=== PATIENT | female | born 1960 | race American Indian/Alaskan Native ===

== ENCOUNTER 2023-01-15 13:11 | Inpatient (IN) ==
--- NOTE | 2023-01-15 14:13 | XRay Report ---
XR chest 1V portable HISTORY: 62 years-old Female Sepsis acute sepsis with shortness of breath COMPARISON: None TECHNIQUE: AP view of the chest FINDINGS: Cardiac mediastinal and hilar silhouettes are within normal limits. No pneumothorax, pleural effusion , airspace consolidation or pulmonary edema. Degenerative changes of the shoulders and spine. IMPRESSION: No acute process. ACT 112: Negative or not required by law. The above report was generated using voice recognition software. It may contain grammatical, syntax o r spelling errors. Electronically signed by: Rory Sweeney M.D. 01/15/2023 2:12 PM
[2023-01-15 14:35] LABS: Basophils # (auto) 0.03 K/uL (0-0.2); Basophils % (auto) 0.2 %; Eosinophils # (auto) 0.12 K/uL (0-0.50); Eosinophils % (auto) 0.9 %; Hematocrit (blood only) 36.8 % (37.0-47.0); Hemoglobin 11.9 g/dl (12.0-16.0); Immature Granulocytes # (auto) 0.05 K/uL (0.01-0.20); Immature Granulocytes % (auto) 0.4 %; Lymphocytes # (auto) 1.29 K/uL (1.2-3.4); Mean Corpuscular Hemoglobin 30.2 pg (25.0-34.0); Mean Corpuscular Hgb Conc 32.3 g/dL (32.0-36.0); Mean Corpuscular Volume 93.4 fL (80.0-100.0); Mean Platelet Volume 13.2 fL (9.4-12.4); Monocytes # (auto) 0.84 K/uL (0.11-0.59); Monocytes % (auto) 6.5 %; Neutrophils # (auto) 10.55 K/uL (1.40-6.50); Platelet Count 165 K/uL (130-400); RDW Standard Deviation 47.8 fL (36.4-46.3); Red Blood Count 3.94 M/uL (4.20-5.40); White Blood Count 12.88 K/ul (4.8-10.8)
[2023-01-15 14:46] LABS: Albumin Level 4.1 gm/dl (3.4-5.0); BUN Creatinine Ratio 12.4 (10-20); Bilirubin,Total 0.8 mg/dl (0.2-1.0); Calcium 9.3 mg/dl (8.5-10.1); Creatinine Clr Calc Pharmacy 83.2 ml/min; Est GFR (African American) 81.6 ml/min; Est GFR (Non-African American) 70.4 ml/min; Potassium 4.5 mmol/L (3.5-5.1); Total Protein 8.1 gm/dl (6.0-8.3)
[2023-01-15 14:46] LABS: Appearance Urine Clear (Clear); Bacteria Urine Automated Negative (Negative); Bilirubin Urine Negative (Negative); Blood Urine Negative (Negative); Color Urine Yellow; Epithelial Cell Urine Auto >30 /lpf (0-5); Glucose Urine UA Negative (Negative); Ketones Urine Negative (Negative); Leukocyte Esterase Urine Negative (Negative); Nitrite Urine Negative (Negative); Protein Urine Trace (Negative); RBC Urine Automated 0-4 /hpf (0-4); Specific Gravity Urine 1.019 (1.000-1.030); Urobilinogen Urine Negative (Negative); pH Urine 6.5 (4.5-7.5)
[2023-01-15 14:58] LABS: Prothrombin Time 10.5 Seconds (9.0-12.0)
--- NOTE | 2023-01-15 16:09 | Emergency Department Note ---
Impression & Plan Abscess of axilla, left, Cellulitis of axilla, left ED Provider Note CHIEF COMPLAINT: Infection in the left axilla x3 weeks HISTORY OF PRESENT ILLNESS: Patient is a 62-year-old female with past medical history significant for GERD, neuropathy, history of CML( not currently under any treatment), who presents emergency department for evaluation of an abscess in her left axilla that started about 3 weeks ago. She reports a history of similar abscesses, usually in the armpit region. They are usually small, and go away on their own. This episode started about 3 weeks ago, it was a small, tender area, she thought it was an ingrown hair. It has progressively gotten larger, more painful and swollen. She is been doing hot showers and warm compresses and putting Neosporin on the area. She started running fevers around 3 or 4 days ago, she reports Tmax around 103 F. She has been taking ibuprofen for this. She currently rates her pain a 6/10. There has been no drainage from the area. She tried calling her primary care provider for an appointment but could not get in. She denies a history of MRSA. REVIEW OF SYSTEMS: Review of systems as per HPI. All other systems reviewed were negative. 10 systems reviewed. PMH: External medical records are reviewed and summarized as above/below. See Problem List. SOCIAL HISTORY: Patient lives at home with her family. She does not smoke. PHYSICAL EXAM: Vital Signs: Reviewed Nurse's notes. Temperature checked by myself at the time of the exam was 39.5 C orally. CONSTITUTIONAL: Patient is a pleasant, nontoxic-appearing 62-year-old female laying on the gurney in no acute distress. EYES: Pupils equal, round, reactive to light and accommodation. EOMs intact without nystagmus. Sclera are anicteric. ENT: Tympanic membranes intact, with normal landmarks. External canals are clear. Oral and nasopharynx are clear. Mucous membranes are moist, no lesions, tongue and gums appear normal. CARDIOVASCULAR: Regular rate and rhythm. Peripheral pulses easily palpable. RESPIRATORY: Breath sounds equal and clear to auscultation. INTEGUMENTARY: Examination of the left axillary area, there is a large, fist sized abscess with overlying cellulitis. There is an area of pointing noted superiorly higher into the axillary region. The area is hot to the touch and exquisitely tender to palpation. EMERGENCY DEPARTMENT COURSE: The patient was seen and assessed as above. External medical records are reviewed. She is noted to have a low-grade fever in triage. She presents to the emergency department for evaluation of an abscess in the left axillary region. Critical pathways implemented by nursing staff prior to my assessment of the patient included CBC with differential, CMP, magnesium, procalcitonin, urinalysis, lactate, coags, blood cultures and a chest x-ray. Laboratory studies per my review note a mildly elevated white count at 12,800. Mild anemia noted, H&H 11.9 and 36.8, platelet count is 165,000. Coags are normal. Electrolytes, renal functions and transaminases are not elevated. Lactic acid normal at 1.8, Pro-Jayson normal at 0.12. Urine microscopy is without signs of infection. Case reviewed with attending physician, Dr. Lira, and antibiotic selection discussed with the ED pharmacist. She was ordered ceftriaxone 2 g IV and daptomycin 4 mg/kg IV. She was ordered IV acetaminophen for her fever. A COVID swab was obtained for admission/surgical purposes. I did discuss the patient with the ED rehabilitation caseworker to confirm and the patient does not appear to be established with a local primary care provider. The patient has a large abscess in the left axillary area that I feels requires surgical I&D. After review of the information above and other included data, I feel the patient Requires admission/observation for further care and management. Consultation was placed with general surgery. I was able to review the patient with general surgery, Dr. Moreno. She suggested CT scan imaging to evaluate the size and extension of the abscess. Discussed with her that the site was pointing, and would be easy to obtain a culture from. She suggested medical admission and surgical consult, plan for OR likely tomorrow. I did perform a limited bedside deroofing of the pustule, and was able to get a large amount of purulent material to drain and obtained a culture from this. CT scan was then performed. The patient requested something for pain and was treated with IV morphine and Zofran. [facility] COVID test was negative. CT of the chest with IV contrast per my interpretation and radiologist report note cellulitis in the left axillary region measuring roughly 10 x 5 cm. Re active lymphadenopathy noted. Chest x-ray per my interpretation is clear without signs of pneumonia. EKG per my interpretation Notes a normal sinus rhythm at 90 bpm. No ectopy or acute ischemic changes. No old EKGs for comparison. PROCEDURE NOTE: Area of maximal pointing of the left axillary abscess was cleansed with alcohol swab x3, and deroofed with an 18-gauge needle. There was a brisk flow of bloody/purulent drainage that resulted, a culture was obtained and was sent for analysis. Absorbent dressing was applied. Differential diagnoses considered included cellulitis, abscess, mass or malignancy, necrotizing fasciitis, among others. Past Med/Surg History Medical History CML (chronic myelocytic leukemia) Endometriosis GERD (gastroesophageal reflux disease) Surgical History History of appendectomy History of delivery History of cholecystectomy History of tonsillectomy Social History Smoking Status: Never smoker Preferred Language: Lebanese marital status: Current Living Situation: Spouse current occupational status: unemployed Feels Safe at Home: Yes Allergies Allergies Allergy/AdvReac Type Severity Reaction Status Date / Time No Known Allergies Allergy Verified 01/15/23 16:05 Home Meds Home Medications Medication Instructions Recorded Confirmed celecoxib 200 mg capsule 200 mg PO DAILY PRN Pain 01/15/23 01/15/23 famotidine 20 mg tablet 20 mg PO BID 01/15/23 01/15/23 gabapentin 800 mg tablet 800 mg PO TID 01/15/23 01/15/23 omeprazole 40 mg capsule,delayed 40 mg PO BID 01/15/23 01/15/23 release Previous Rx's Medication Instructions Recorded ondansetron 4 mg disintegrating 4 mg PO Q6H PRN nausea and 10/18/22 tablet vomiting #10 tabs Results & Data (ED) Vital Signs Vital Signs - 24 hr 01/15/23 13:12 01/15/23 15:37 01/15/23 16:08 Temperature 37.6 C H 38.3 C H 39.5 C H Temperature Source Temporal Artery Scan Oral Oral Pulse Rate 97 H Pulse Rate [Left Apical] 88 Respiratory Rate 16 18 Blood Pressure 144/81 H Blood Pressure [Right Arm] 128/87 Blood Pressure Mean 102 Blood Pressure Mean [Right Arm] 100 Pulse Oximetry 99 95 Oxygen Delivery Method Room Air Sepsis Recent Fever Within 48 Hours No Sepsis New/Unexplained Change in Mental Status N/A Sepsis Action Taken by Nursing No Action Required 01/15/23 16:14 01/15/23 17:13 01/15/23 16:01 Temperature 38.3 C H Temperature Source Oral Pulse Rate 92 H 93 H Pulse Rate [Left Apical] Respiratory Rate 16 Blood Pressure 161/85 H Blood Pressure [Right Arm] Blood Pressure Mean 110 Blood Pressure Mean [Right Arm] Pulse Oximetry 96 Oxygen Delivery Method Room Air Sepsis Recent Fever Within 48 Hours Sepsis New/Unexplained Change in Mental Status Sepsis Action Taken by Nursing 01/15/23 16:31 01/15/23 17:01 01/15/23 17:30 Temperature Temperature Source Pulse Rate 84 84 87 Pulse Rate [Left Apical] Respiratory Rate 22 20 17 Blood Pressure 131/83 121/66 124/83 Blood Pressure [Right Arm] Blood Pressure Mean 99 84 96 Blood Pressure Mean [Right Arm] Pulse Oximetry 97 97 93 Oxygen Delivery Method Room Air Room Air Room Air Sepsis Recent Fever Within 48 Hours Sepsis New/Unexplained Change in Mental Status Sepsis Action Taken by Nursing 01/15/23 18:00 Temperature Temperature Source Pulse Rate 94 H Pulse Rate [Left Apical] Respiratory Rate 21 Blood Pressure 119/76 Blood Pressure [Right Arm] Blood Pressure Mean 90 Blood Pressure Mean [Right Arm] Pulse Oximetry 96 Oxygen Delivery Method Room Air Sepsis Recent Fever Within 48 Hours Sepsis New/Unexplained Change in Mental Status Sepsis Action Taken by Care Home Medications Current Medication List: was personally reviewed by me Laboratory Data Attestation: I reviewed the patient's lab results. 01/15/23 14:00 01/15/23 14:00 Lab Results 01/15/23 01/15/23 01/15/23 Range/Units 14:00 14:00 14:00 WBC 12.88 H (4.8-10.8) K/ul RBC 3.94 L (4.20-5.40) M/uL Hgb 11.9 L (12.0-16.0) g/dl Hct 36.8 L (37.0-47.0) % MCV 93.4 (80.0-100.0) fL MCH 30.2 (25.0-34.0) pg MCHC 32.3 (32.0-36.0) g/dL RDW Std Deviation 47.8 H (36.4-46.3) fL RDW Coeff of Malena 14.0 (11.5-14.5) % Plt Count 165 (130-400) K/uL MPV 13.2 H (9.4-12.4) fL Immature Gran % (Auto) 0.4 % Neut % (Auto) 82.0 % Lymph % (Auto) 10.0 % [place] % (Auto) 6.5 % Eos % (Auto) 0.9 % Baso % (Auto) 0.2 % Neut # (Auto) 10.55 H (1.40-6.50) K/uL Lymph # (Auto) 1.29 (1.2-3.4) K/uL [place] # (Auto) 0.84 H (0.11-0.59) K/uL Eos # (Auto) 0.12 (0-0.50) K/uL Baso # (Auto) 0.03 (0-0.2) K/uL Immature Gran # (Auto) 0.05 (0.01-0.20) K/uL PT 10.5 (9.0-12.0) Seconds INR 1.0 (0.9-1.1) APTT 27.0 (21.0-31.0) Seconds PTT Ratio 1.0 Sodium 136 (136-145) mmol/L Potassium 4.5 (3.5-5.1) mmol/L Chloride 102 (98-107) mmol/L Carbon Dioxide 27 (21-32) mmol/L Anion Gap 7 (3-11) BUN 11 (6-23) mg/dl Creatinine 0.89 (0.6-1.2) mg/dl Est Cr Clr Drug Dosing 83.2 ml/min Est GFR ( Amer) 81.6 ml/min Est GFR (Non-Af Amer) 70.4 ml/min BUN/Creatinine Ratio 12.4 (10-20) Glucose 91 (70-99(Fasting)) mg/dl Lactate (0.4-2.0) mmol/L Calcium 9.3 (8.5-10.1) mg/dl Magnesium 2.0 (1.7-2.4) mg/dl Total Bilirubin 0.8 (0.2-1.0) mg/dl AST 28 (13-39) U/L ALT 31 (7-52) U/L Alkaline Phosphatase 85 (34-104) U/L Total Protein 8.1 (6.0-8.3) gm/dl Albumin 4.1 (3.4-5.0) gm/dl Globulin 4.0 (2.5-4.0) gm/dl Albumin/Globulin Ratio 1.0 (0.9-2) Procalcitonin (0-0.5) ng/ml Urine Color Urine Appearance (Clear) Urine pH (4.5-7.5) Ur Specific [place] (1.000-1.030) Urine Protein (Negative) Urine Glucose (UA) (Negative) Urine Ketones (Negative) Urine Blood (Negative) Urine Nitrite (Negative) Urine Bilirubin (Negative) Urine Urobilinogen (Negative) Ur Leukocyte Esterase (Negative) Urine WBC (Auto) (0-5) /hpf Urine RBC (Auto) (0-4) /hpf U Hyaline Cast (Auto) (0-5) /lpf U Epithel Cells (Auto) (0-5) /lpf Urine Bacteria (Auto) (Negative) SARS-CoV-2, RNA, NAAT (NEGATIVE) 01/15/23 01/15/23 01/15/23 Range/Units 14:00 14:00 14:12 WBC (4.8-10.8) K/ul RBC (4.20-5.40) M/uL Hgb (12.0-16.0) g/dl Hct (37.0-47.0) % MCV (80.0-100.0) fL MCH (25.0-34.0) pg MCHC (32.0-36.0) g/dL RDW Std Deviation (36.4-46.3) fL RDW Coeff of Malena (11.5-14.5) % Plt Count (130-400) K/uL MPV (9.4-12.4) fL Immature Gran % (Auto) % Neut % (Auto) % Lymph % (Auto) % [place] % (Auto) % Eos % (Auto) % Baso % (Auto) % Neut # (Auto) (1.40-6.50) K/uL Lymph # (Auto) (1.2-3.4) K/uL [place] # (Auto) (0.11-0.59) K/uL Eos # (Auto) (0-0.50) K/uL Baso # (Auto) (0-0.2) K/uL Immature Gran # (Auto) (0.01-0.20) K/uL PT (9.0-12.0) Seconds INR (0.9-1.1) APTT (21.0-31.0) Seconds PTT Ratio Sodium (136-145) mmol/L Potassium (3.5-5.1) mmol/L Chloride (98-107) mmol/L Carbon Dioxide (21-32) mmol/L Anion Gap (3-11) BUN (6-23) mg/dl Creatinine (0.6-1.2) mg/dl Est Cr Clr Drug Dosing ml/min Est GFR ( Amer) ml/min Est GFR (Non-Af Amer) ml/min BUN/Creatinine Ratio (10-20) Glucose (70-99(Fasting)) mg/dl Lactate 1.8 (0.4-2.0) mmol/L Calcium (8.5-10.1) mg/dl Magnesium (1.7-2.4) mg/dl Total Bilirubin (0.2-1.0) mg/dl AST (13-39) U/L ALT (7-52) U/L Alkaline Phosphatase (34-104) U/L Total Protein (6.0-8.3) gm/dl Albumin (3.4-5.0) gm/dl Globulin (2.5-4.0) gm/dl Albumin/Globulin Ratio (0.9-2) Procalcitonin 0.12 (0-0.5) ng/ml Urine Color Yellow Urine Appearance Clear (Clear) Urine pH 6.5 (4.5-7.5) Ur Specific [place] 1.019 (1.000-1.030) Urine Protein Trace H (Negative) Urine Glucose (UA) Negative (Negative) Urine Ketones Negative (Negative) Urine Blood Negative (Negative) Urine Nitrite Negative (Negative) Urine Bilirubin Negative (Negative) Urine Urobilinogen Negative (Negative) Ur Leukocyte Esterase Negative (Negative) Urine WBC (Auto) 1-5 (0-5) /hpf Urine RBC (Auto) 0-4 (0-4) /hpf U Hyaline Cast (Auto) 1-5 (0-5) /lpf U Epithel Cells (Auto) >30 H (0-5) /lpf Urine Bacteria (Auto) Negative (Negative) SARS-CoV-2, RNA, NAAT (NEGATIVE) 01/15/23 Range/Units 16:30 WBC (4.8-10.8) K/ul RBC (4.20-5.40) M/uL Hgb (12.0-16.0) g/dl Hct (37.0-47.0) % MCV (80.0-100.0) fL MCH (25.0-34.0) pg MCHC (32.0-36.0) g/dL RDW Std Deviation (36.4-46.3) fL RDW Coeff of Malena (11.5-14.5) % Plt Count (130-400) K/uL MPV (9.4-12.4) fL Immature Gran % (Auto) % Neut % (Auto) % Lymph % (Auto) % [place] % (Auto) % Eos % (Auto) % Baso % (Auto) % Neut # (Auto) (1.40-6.50) K/uL Lymph # (Auto) (1.2-3.4) K/uL [place] # (Auto) (0.11-0.59) K/uL Eos # (Auto) (0-0.50) K/uL Baso # (Auto) (0-0.2) K/uL Immature Gran # (Auto) (0.01-0.20) K/uL PT (9.0-12.0) Seconds INR (0.9-1.1) APTT (21.0-31.0) Seconds PTT Ratio Sodium (136-145) mmol/L Potassium (3.5-5.1) mmol/L Chloride (98-107) mmol/L Carbon Dioxide (21-32) mmol/L Anion Gap (3-11) BUN (6-23) mg/dl Creatinine (0.6-1.2) mg/dl Est Cr Clr Drug Dosing ml/min Est GFR ( Amer) ml/min Est GFR (Non-Af Amer) ml/min BUN/Creatinine Ratio (10-20) Glucose (70-99(Fasting)) mg/dl Lactate (0.4-2.0) mmol/L Calcium (8.5-10.1) mg/dl Magnesium (1.7-2.4) mg/dl Total Bilirubin (0.2-1.0) mg/dl AST (13-39) U/L ALT (7-52) U/L Alkaline Phosphatase (34-104) U/L Total Protein (6.0-8.3) gm/dl Albumin (3.4-5.0) gm/dl Globulin (2.5-4.0) gm/dl Albumin/Globulin Ratio (0.9-2) Procalcitonin (0-0.5) ng/ml Urine Color Urine Appearance (Clear) Urine pH (4.5-7.5) Ur Specific [place] (1.000-1.030) Urine Protein (Negative) Urine Glucose (UA) (Negative) Urine Ketones (Negative) Urine Blood (Negative) Urine Nitrite (Negative) Urine Bilirubin (Negative) Urine Urobilinogen (Negative) Ur Leukocyte Esterase (Negative) Urine WBC (Auto) (0-5) /hpf Urine RBC (Auto) (0-4) /hpf U Hyaline Cast (Auto) (0-5) /lpf U Epithel Cells (Auto) (0-5) /lpf Urine Bacteria (Auto) (Negative) SARS-CoV-2, RNA, NAAT NEGATIVE (NEGATIVE) Administered Medications Sodium Chloride (Nss 1000ml) 1,000 mls @ 250 mls/hr IV .Q4H [facility] Stop: 02/14/23 17:44 Last Admin: 01/15/23 19:06 Dose: 250 mls/hr Documented By: CINDI Discontinued Medications Ceftriaxone Sodium (Rocephin) 2,000 mg in 70 mls @ 140 mls/hr IV NOW STA Stop: 01/15/23 16:48 Last Infusion: 01/15/23 17:42 Dose: 0 mls/hr Documented By: Admin: 01/15/23 16:57 Dose: 140 mls/hr Documented By: SHENG Daptomycin 325 mg/ Syringe 6.5 mls @ 3.25 mls/min IV NOW STA; Protocol Stop: 01/15/23 16:20 Last Admin: 01/15/23 16:57 Dose: 3.25 mls/min Documented By: SHENG Acetaminophen (Ofirmev) 1,000 mg in 100 mls @ 400 mls/hr IV NOW STA Stop: 01/15/23 16:40 Last Infusion: 01/15/23 17:10 Dose: 0 mls/hr Documented By: Admin: 01/15/23 16:36 Dose: 400 mls/hr Documented By: SHENG Sodium Chloride (Nss 1000ml) 1,000 mls @ 999 mls/hr IV .Q1H1M [facility] Stop: 01/15/23 18:44 Last Infusion: 01/15/23 19:07 Dose: 0 mls/hr Documented By: Admin: 01/15/23 18:34 Dose: 999 mls/hr Documented By: SHENG Ioversol (Optiray 350 100ml) 88 ml IV ONCE ONE Stop: 01/15/23 18:21 Last Admin: 01/15/23 18:20 Dose: 88 ml Documented By: MATTIE Lidocaine HCl (Lidocaine 1% Local 20 Ml Vial) Confirm Administered Dose 1 ml .ROUTE .STK-MED ONE Stop: 01/15/23 18:43 Last Admin: 01/15/23 19:15 Dose: 1 ml Documented By: CINDI Morphine Sulfate (Morphine Sulfate 4 Mg/Ml 1 Ml Carp\Vial) 4 mg IV NOW STA Stop: 01/15/23 17:45 Last Admin: 01/15/23 17:58 Dose: 4 mg Documented By: SHENG Ondansetron HCl (Ondansetron Inj 2 Mg/Ml 2 Ml Vial) 4 mg IV NOW STA Stop: 01/15/23 17:45 Last Admin: 01/15/23 17:58 Dose: 4 mg Documented By: SHENG Imaging Data Attestation: I personally reviewed and interpreted this imaging study as follows: Radiologist's Impression: Chest X-Ray 01/15/23 13:25 XR chest 1V portable HISTORY: 62 years-old Female Sepsis acute sepsis with shortness of breath COMPARISON: None TECHNIQUE: AP view of the chest FINDINGS: Cardiac mediastinal and hilar silhouettes are within normal limits. No pneumothorax, pleural effusion, airspace consolidation or pulmonary edema. Degenerative changes of the shoulders and spine. IMPRESSION: No acute process. ACT 112: Negative or not required by law. The above report was generated using voice recognition software. It may contain grammatical, syntax or spelling errors. Electronically signed by: Rory Sweeney M.D. 01/15/2023 2:[address] 01/15/23 17:28 CT OF THE CHEST WITH IV CONTRAST CLINICAL HISTORY: EVAL LEFT AXILLARY ABSCESS COMPARISON STUDY: Chest radiograph performed earlier today. TECHNIQUE: Following IV administration of 88 mL of Optiray, helical axial images of the chest were obtained. Sagittal and coronal reconstructions were viewed as well as maximal intensity projections on an independent 3-D workstation. Automated exposure control was utilized for the study. A dose lowering technique was utilized adhering to the principles of ALARA. CT DOSE: 948.88 mGy.cm FINDINGS: Aberrant right subclavian artery is incidentally noted. No enlarged mediastinal or hilar lymph nodes are present. The size if the heart is normal. There is no pericardial effusion. A small hiatal hernia is present. There are multiple mildly enlarged left axillary lymph nodes. Index left axillary lymph node on image 102 of 286 measures 1.7 x 1.3 cm. This node contains a fatty hilum and is likely reactive. Note is made of left inferior axillary skin thickening. A 10.8 x 4.5 cm focus of left inferior axillary stranding and associated fluid is noted. There is no rim-enhancing fluid collection. There is no soft tissue gas. No additional sites of inflammation are identified on this examination. There is no consolidation to suggest pneumonia. Linear and ground glass densities within the lungs favor atelectasis. The central airways are patent. There is no pneumothorax or pleural effusion. Patchy steatosis is incidentally noted. IMPRESSION: 1. Left inferior axillary skin thickening and moderate subcutaneous stranding and fluid extends for approximately 10.8 x 4.5 cm. This is suggestive of an infectious process with cellulitis and phlegmon. No drainable fluid collection to suggest abscess at this time. 2. Multiple mildly enlarged left axillary lymph nodes which are likely reactive. ACT 112: Negative or not required by law. Electronically signed by: Keith Cooney M.D. 01/15/2023 6:31 PM Discharge Plan Visit Data Chief Complaint: Infection Stated Complaint: MASS FROM BREAST ED Provider: Mac Lira ED Midlevel Provider: Ana Acosta Discharge Problem: Abscess of axilla, left, Cellulitis of axilla, left Patient Disposition: Admitted As Inpatient Discharge Instructions Interventions: ED Discharge Assessment Last Done: 01/15/23 20:38
[2023-01-15] MEDS ORDERED: DAPTOmycin 325 MG in SYRINGE 0 ML IV STA (16:19)
[2023-01-15] MEDS ORDERED: cefTRIAXone SODIUM 2,000 MG/70 ML BAG IV STA (16:19)
[2023-01-15] MEDS ORDERED: ACETAMINOPHEN 1,000 MG/100 ML VIAL IV STA (16:26)
[2023-01-15] MEDS ORDERED: MoRPHine SULFATE 4 MG/ML 1 ML CARP\\VIAL IV STA (17:44)
[2023-01-15] MEDS ORDERED: SODIUM CHLORIDE 0.9% 1000ML 1,000 ML IV SCH ×2 (17:44→17:45)
[2023-01-15] MEDS ORDERED: ONDANSETRON INJ 2 MG/ML 2 ML VIAL IV STA (17:44)
--- NOTE | 2023-01-15 18:05 | History & Physical Report ---
Date of Service January 15, 2023 Assessment & Plan (1) Sepsis: (2) Abscess of axilla, left: (3) Cellulitis of axilla, left: Plan: -Admit to [facility] -Started on IV daptomycin and ceftriaxone in the ER, continue IV antibiotics zosyn and daptomycin -WBC of 12.88, febrile with Tmax of 39.5 on admission, negative lactic acid and procalcitonin -No history of hidradenitis suppurativa -Obtaining CT, general surgery has been consulted and plans to I&D at bedside -Allow p.o. diet after procedure -Warm compresses to axillary region, pain control with Tylenol, oxycodone p.o. if pain is moderate to severe -Received NSS in the ER (4) CML (chronic myelocytic leukemia): Plan: -History of such, diagnosed 2010 -Follows with Landon Dillard with yearly labs - pt does not know name of physician, states that he moved to [place]. May need to re-establish with [facility] locally - discuss prio to nd (5) GERD (gastroesophageal reflux disease): Plan: -History of such, continue omeprazole DVT PPx: - teds, scds, ambulatory CODE: Full code Dispo: From home, likely to remain in the hospital x 1-2 days A total of 76 minutes were spent with greater than 50% of that time face to face with the patient, personally reviewing all current laboratories, imaging studies, past medication reconciliation, outpatient chart review, and discussion with specialists to collaborate care for the patient with attending. Please see attending documentation for corrections and/or additions. History of Present Illness Chief Complaint: Axillary abscess Primary Care Provider: NO PCP This is a 62 yo F with PMHx of CML diagnosed in [id number] who trialed an experimental oral chemotherapy which caused pulmonary hypertension. Chemo was stopped and she required medication for pulmonary hypertension from [id number], GERD, Pt reports chronic neuropathy for the past 10 years or so for which she uses gabapentin for. Her oncological/hematological care was with Landon Dillard in [place]. Pt has had yearly labs which are followed but have been stable since 2018. Patient reports that she had a small area under her left armpit which became white and tender approximately 1 month ago. She reports a history of having superficial abscesses happen but go away on their own. This time it worsened, and specifically within the last week it doubled in size from a golf ball size to 2-3 times that size in the past few days. She is acutely tender under her arm and has difficulty moving it due to pain. She admits to having fever, yesterday she checked a rectal temperature which was 104. Medicating with ibuprofen for fever at home. Pt notes poor appetite and limited po intake due to nausea, and vomited last night once. She denies any history of hidradenitis suppurativa or MRSA. Patient notes that she was here in the hospital a few weeks ago for one of her children who required inpatient psych stay where she ended up sleeping on the ER floor. She feels significantly stressed due to family needs recently and feels her immune system is down secondary to this. Allergies Allergy/AdvReac Type Severity Reaction Status Date / Time No Known Allergies Allergy Verified 01/15/23 16:05 Home Medications Medication Instructions Recorded Confirmed Type ondansetron 4 mg disintegrating 4 mg PO Q6H PRN nausea and 10/18/22 01/15/23 Rx tablet vomiting #10 tabs celecoxib 200 mg capsule 200 mg PO DAILY PRN Pain 01/15/23 01/15/23 History famotidine 20 mg tablet 20 mg PO BID 01/15/23 01/15/23 History gabapentin 800 mg tablet 800 mg PO TID 01/15/23 01/15/23 History omeprazole 40 mg capsule,delayed 40 mg PO BID 01/15/23 01/15/23 History release Past Med/Surg History Medical History CML (chronic myelocytic leukemia) Endometriosis GERD (gastroesophageal reflux disease) Surgical History History of appendectomy History of delivery History of cholecystectomy History of tonsillectomy Social History (Updated 10/18/22 @ 21:54 by Gianni Tong) Smoking Status: Never smoker Second Hand Exposure: No; Hx Alcohol Use: Yes Alcohol type: beer Hx Substance Use: No Preferred Language: Syriac Communication Ability: Effective Mule Tender Required: No Beliefs That Will Affect Care: None marital status: Current Living Situation: Significant Other current occupational status: unemployed Feels Safe at Home: Yes Assistive Devices: None Review of Systems Review of Systems: Constitutional: + fever and chills Eyes: No diplopia, no worsening or blurred vision ENT: normal hearing, no trouble swallowing Respiratory: No cough, sputum, dyspnea at rest or on exertion Cardiovascular: No chest pain, tightness or palpitations Abdomen: + Poor po appetitie in past 3 days, +n, + vomiting last night x 1, no diarrhea or constipation Musculoskeletal: No joint pain, calf pain, swelling Extremities: Left armpit with swelling, nodule and pain with movement as per HPI Neurologic: No weakness, numbness/tingling, or balance problems Psychiatric: No anxiety or depression Skin: No rash or itch Physical Exam Physical Exam: General: awake, alert, no apparent distress, obese with BMI of 40.5 Head: Normocephalic, atraumatic ENT: PERRL, EOMI, no pharyngeal exudate, mucous membranes moist Chest: Clear to auscultation, on room air, no adventitious breath sounds Cardiac: Regular rate and rhythm, no murmur, no JVD, normal peripheral pulses, good capillary refill Abdominal: NABS x 4 quadrants, soft, nondistended, nontender to palpation, no rebound or guarding Extremities: Left axillary region bright red, obvious large abscess, +fluctuance with area that is pouring out purulent material with 4x4 which is saturated, + Pain with movement of the arm. Erythema outlined at bedside. Other extremities with normal inspection, no peripheral edema or erythema, calfs nontender to palpation Psych: Normal mood and affect Neuro: AAO x 3, strength intact bilaterally and rated 5/5, no motor deficits, speech is clear, no peripheral sensory deficits Results & Data Results & Data Vital Signs (Past 12 Hours) Vital Signs Temp Pulse Pulse Resp BP BP Pulse Ox 01/15/23 17:13 38.3 C H 01/15/23 16:14 92 H 01/15/23 16:08 39.5 C H 01/15/23 15:37 38.3 C H 88 18 128/87 95 01/15/23 13:12 37.6 C H 97 H 16 144/81 H 99 O2 Del Method 01/15/23 17:13 01/15/23 16:14 01/15/23 16:08 01/15/23 15:37 Room Air 01/15/23 13:12 Laboratory Results 01/15/23 17:37 Gram Stain - Pending Axilla Aerobic and Anaerobic Culture - Pending 01/15/23 14:00 Aerobic Blood Culture - Pending Blood Anaerobic Blood Culture - Pending 01/15/23 14:00 Aerobic Blood Culture - Pending Blood Anaerobic Blood Culture - Pending 01/15/23 01/15/23 01/15/23 16:30 14:12 14:00 WBC RBC Hgb Hct MCV MCH MCHC RDW Std Deviation RDW Coeff of Malena Plt Count MPV Immature Gran % (Auto) Neut % (Auto) Lymph % (Auto) Rice % (Auto) Eos % (Auto) Baso % (Auto) Neut # (Auto) Lymph # (Auto) Rice # (Auto) Eos # (Auto) Baso # (Auto) Immature Gran # (Auto) PT INR APTT PTT Ratio Sodium Potassium Chloride Carbon Dioxide Anion Gap BUN Creatinine Est Cr Clr Drug Dosing Est GFR ( Amer) Est GFR (Non-Af Amer) BUN/Creatinine Ratio Glucose Lactate Calcium Magnesium Total Bilirubin AST ALT Alkaline Phosphatase Total Protein Albumin Globulin Albumin/Globulin Ratio Procalcitonin 0.12 Urine Color Yellow Urine Appearance Clear Urine pH 6.5 Ur Specific [place] 1.019 Urine Protein Trace H Urine Glucose (UA) Negative Urine Ketones Negative Urine Blood Negative Urine Nitrite Negative Urine Bilirubin Negative Urine Urobilinogen Negative Ur Leukocyte Esterase Negative Urine WBC (Auto) 1-5 Urine RBC (Auto) 0-4 U Hyaline Cast (Auto) 1-5 U Epithel Cells (Auto) >30 H Urine Bacteria (Auto) Negative SARS-CoV-2, RNA, NAAT NEGATIVE 01/15/23 01/15/23 01/15/23 14:00 14:00 14:00 WBC RBC Hgb Hct MCV MCH MCHC RDW Std Deviation RDW Coeff of Malena Plt Count MPV Immature Gran % (Auto) Neut % (Auto) Lymph % (Auto) Rice % (Auto) Eos % (Auto) Baso % (Auto) Neut # (Auto) Lymph # (Auto) Rice # (Auto) Eos # (Auto) Baso # (Auto) Immature Gran # (Auto) PT 10.5 INR 1.0 APTT 27.0 PTT Ratio 1.0 Sodium 136 Potassium 4.5 Chloride 102 Carbon Dioxide 27 Anion Gap 7 BUN 11 Creatinine 0.89 Est Cr Clr Drug Dosing 83.2 Est GFR ( Amer) 81.6 Est GFR (Non-Af Amer) 70.4 BUN/Creatinine Ratio 12.4 Glucose 91 Lactate 1.8 Calcium 9.3 Magnesium 2.0 Total Bilirubin 0.8 AST 28 ALT 31 Alkaline Phosphatase 85 Total Protein 8.1 Albumin 4.1 Globulin 4.0 Albumin/Globulin Ratio 1.0 Procalcitonin Urine Color Urine Appearance Urine pH Ur Specific [place] Urine Protein Urine Glucose (UA) Urine Ketones Urine Blood Urine Nitrite Urine Bilirubin Urine Urobilinogen Ur Leukocyte Esterase Urine WBC (Auto) Urine RBC (Auto) U Hyaline Cast (Auto) U Epithel Cells (Auto) Urine Bacteria (Auto) SARS-CoV-2, RNA, NAAT 01/15/23 14:00 WBC 12.88 H RBC 3.94 L Hgb 11.9 L Hct 36.8 L MCV 93.4 MCH 30.2 MCHC 32.3 RDW Std Deviation 47.8 H RDW Coeff of Malena 14.0 Plt Count 165 MPV 13.2 H Immature Gran % (Auto) 0.4 Neut % (Auto) 82.0 Lymph % (Auto) 10.0 Rice % (Auto) 6.5 Eos % (Auto) 0.9 Baso % (Auto) 0.2 Neut # (Auto) 10.55 H Lymph # (Auto) 1.29 Rice # (Auto) 0.84 H Eos # (Auto) 0.12 Baso # (Auto) 0.03 Immature Gran # (Auto) 0.05 PT INR APTT PTT Ratio Sodium Potassium Chloride Carbon Dioxide Anion Gap BUN Creatinine Est Cr Clr Drug Dosing Est GFR ( Amer) Est GFR (Non-Af Amer) BUN/Creatinine Ratio Glucose Lactate Calcium Magnesium Total Bilirubin AST ALT Alkaline Phosphatase Total Protein Albumin Globulin Albumin/Globulin Ratio Procalcitonin Urine Color Urine Appearance Urine pH Ur Specific [place] Urine Protein Urine Glucose (UA) Urine Ketones Urine Blood Urine Nitrite Urine Bilirubin Urine Urobilinogen Ur Leukocyte Esterase Urine WBC (Auto) Urine RBC (Auto) U Hyaline Cast (Auto) U Epithel Cells (Auto) Urine Bacteria (Auto) SARS-CoV-2, RNA, NAAT Diagnostic Findings Chest X-Ray 01/15/23 13:25 XR chest 1V portable HISTORY: 62 years-old Female Sepsis acute sepsis with shortness of breath COMPARISON: None TECHNIQUE: AP view of the chest FINDINGS: Cardiac mediastinal and hilar silhouettes are within normal limits. No pneumothorax, pleural effusion, airspace consolidation or pulmonary edema. Degenerative changes of the shoulders and spine. IMPRESSION: No acute process. ACT 112: Negative or not required by law. The above report was generated using voice recognition software. It may contain grammatical, syntax or spelling errors. Electronically signed by: Rory Sweeney M.D. 01/15/2023 2:12 PM ECG Additional Comments: Reviewed showing NSR 15-JAN-2023 13:46:07 [facility]-EDSTAT ROUTINE RETRIEVAL Poor data quality, interpretation may be adversely affected Normal sinus rhythm Cannot rule out Anterior infarct , age undetermined Abnormal ECG No previous ECGs available 25mm/[id number] 241CID: 11Referred by: ED Unconfirmed Vent. rate 90 BPM WA interval 142 ms QRS duration 70 ms QT/QTc 336/411 ms Supervising Physician Co-Signing Physician Notes Patient is a 62-year-old female with history of CML, pulmonary hypertension and other medical problems presents with history of left axilla abscess which has been gradually worsening over the past 3 weeks with swelling, pain, tenderness. Patient had similar abscesses in the past. She believes to have ingrowing hair which is likely causing the abscess. She admits to have fever and has been taking ibuprofen to control it. Please review HPI for complete details of presentation. Blood work suggestive of leukocytosis 12.8 K, hemoglobin 11.9, normal lactate, procalcitonin levels, blood work otherwise within normal limits. CT suggestive of left inferior axillary abscess measuring 10.18 x 4.5 cm. Chest x-ray showed no acute process. EKG showed normal sinus rhythm, QTc 411., Nonspecific ST-T wave changes. Patient is admitted for management of sepsis secondary to left axilla abscess/cellulitis. Agree with broad-spectrum antibiotics with daptomycin, Zosyn. Blood, wound cultures obtained. Appreciate surgery input for I&D. IV fluids. Pain control. Check MRSA screen. I personally reviewed the record. Patient is interviewed and examined at bedside. Patient's care is coordinated with Ruba Reich PA-C. Please refer to the documentation above for details of patient's presentation and for discussion of other issues.
[2023-01-15] MEDS ORDERED: OPTIRAY 350 100ml IV ONE (18:20)
--- NOTE | 2023-01-15 18:33 | CT Scan Report ---
CT OF THE CHEST WITH IV CONTRAST CLINICAL HISTORY: EVAL LEFT AXILLARY ABSCESS COMPARISON STUDY: Chest radiograph performed earlier today. TECHNIQUE: Following IV administration of 88 mL of Optiray, helical axial images of the chest were o btained. Sagittal and coronal reconstructions were viewed as well as maximal intensity projections o n an independent 3-D workstation. Automated exposure control was utilized for the study. A dose low ering technique was utilized adhering to the principles of ALARA. CT DOSE: 948.88 mGy.cm FINDINGS: Aberrant right subclavian artery is incidentally noted. No enlarged mediastinal or hilar l ymph nodes are present. The size if the heart is normal. There is no pericardial effusion. A small hi atal hernia is present. There are multiple mildly enlarged left axillary lymph nodes. Index left axil [place] lymph node on image 102 of 286 measures 1.7 x 1.3 cm. This node contains a fatty hilum and is li ania reactive. Note is made of left inferior axillary skin thickening. A 10.8 x 4.5 cm focus of left inferior axillary stranding and associated fluid is noted. There is no rim-enhancing fluid collection . There is no soft tissue gas. No additional sites of inflammation are identified on this examination . There is no consolidation to suggest pneumonia. Linear and ground glass densities within the lungs favor atelectasis. The central airways are patent. There is no pneumothorax or pleural effusion. Patc hy steatosis is incidentally noted. IMPRESSION: 1. Left inferior axillary skin thickening and moderate subcutaneous stranding and fluid extends for a pproximately 10.8 x 4.5 cm. This is suggestive of an infectious process with cellulitis and phlegmon. No drainable fluid collection to suggest abscess at this time. 2. Multiple mildly enlarged left axillary lymph nodes which are likely reactive. ACT 112: Negative or not required by law. Electronically signed by: Keith Cooney M.D. 01/15/2023 6:31 PM
[2023-01-15] MEDS ORDERED: LIDOCAINE 1% LOCAL 20 ML VIAL ONE (18:42)
--- NOTE | 2023-01-15 19:46 | Surgery Consultation ---
Date of Consultation January 15, 2023 Assessment & Plan (1) Abscess of axilla, left: (2) Cellulitis: Plan Admit to medicine for IV antibiotics F/U cultures that were collected in the ED Plan for incision and drainage at the bedside to provide better drainage at the lanced site Continue warm compresses History of Present Illness Reason for Consultation: Left axillary pain and swelling History of Present Illness Fabiana is a pleasant 62 y/o F who presents to the ED with the c/o left worsening left axillary swelling and pain. 3 weeks ago Niurka started to notice a small nodule at her left axilla that she thought might be a small pimple that needed to bust. She began using warm compresses over the area as well as warm soaks. The area was stable for 2 weeks and would not pop as she expected. Niurka finally decided to help it along by poking it but was still unable to get it to open and drain. Suddenly the area rapidly increased in pain and size. She also started to notice redness around the area. At home Niurka says she started having fevers, chills, N/V and has been unable to tolerate much oral intake. Niurka says she used to get these frequently when she would et her periods 15 years ago and has not had anything like this since. She denies chest pain, SOB, coughing and burning with urination. In the ED she was febrile with a WBC of 12.8 with Neutrophils to 10.55. I was called for surgical consultation. The abscess was lanced for culture collection with expelled purulent drainage and a CT of the chest reveals enlarged, likely reactive lymph nodes without specific fluid collection at the left axilla but a large 10cm phlegmon present. Allergies Allergy/AdvReac Type Severity Reaction Status Date / Time No Known Allergies Allergy Verified 01/15/23 16:05 Home Medications Medication Instructions Recorded Confirmed Type ondansetron 4 mg disintegrating 4 mg PO Q6H PRN nausea and 10/18/22 01/15/23 Rx tablet vomiting #10 tabs celecoxib 200 mg capsule 200 mg PO DAILY PRN Pain 01/15/23 01/15/23 History famotidine 20 mg tablet 20 mg PO BID 01/15/23 01/15/23 History gabapentin 800 mg tablet 800 mg PO TID 01/15/23 01/15/23 History omeprazole 40 mg capsule,delayed 40 mg PO BID 01/15/23 01/15/23 History release Patient History Medical History CML (chronic myelocytic leukemia) Endometriosis GERD (gastroesophageal reflux disease) Surgical History History of appendectomy History of delivery History of cholecystectomy History of tonsillectomy Social History (Updated 10/18/22 @ 21:54 by Gianni Tong) Smoking Status: Never smoker Preferred Language: Salvadorean marital status: Current Living Situation: Spouse current occupational status: unemployed Feels Safe at Home: Yes Review of Systems Constitutional: + fever and + chills; no sweats Decreased appetite Respiratory: no cough, no dyspnea, no hemoptysis and no pain on inspiration Cardiovascular: no chest pain, no radiating jaw, neck or arm pain, no orthopnea and no syncope Gastrointestinal: + nausea (resolved) and + vomiting (resolved); no belching, no bloating and no change in stools Physical Exam Constitutional: cooperative and comfortable (C/O pain when she raises her left arm); no acute distress, not ill appearing and no altered mental status Respiratory: normal respiratory effort; no respiratory distress, no labored breathing, does not use accessory muscles, no cough and not tachypneic Auscultation: no crackles, no rales and no wheezes Cardiovascular: Rate/Rhythm: regular rate Extremities: no calf tenderness Chest (Breasts): Breast: normal inspection of breasts, normal palpation of breasts and + axillary mass (Abscess present/induration ); + abnormal inspection of axilla (Large area of swelling, erythema and partly indurated w/ purulent drainage) Gastrointestinal (Abdomen): Inspection/Auscultation: abdomen normal to inspection, normal bowel sounds and + significant pannus; abdomen not distended Results & Data Vital Signs (Past 12 Hours) Vital Signs Temp Pulse Pulse Resp BP BP Pulse Ox 01/15/23 18:50 83 17 95 01/15/23 18:00 94 H 21 119/76 96 01/15/23 17:30 87 17 124/83 93 01/15/23 17:01 84 20 121/66 97 01/15/23 16:31 84 22 131/83 97 01/15/23 16:01 93 H 16 161/85 H 96 03/16/23 17:13 38.3 C H 01/15/23 16:14 92 H 01/15/23 16:08 39.5 C H 01/15/23 15:37 38.3 C H 88 18 128/87 95 01/15/23 13:12 37.6 C H 97 H 16 144/81 H 99 O2 Del Method 01/15/23 18:50 01/15/23 18:00 Room Air 01/15/23 17:30 Room Air 01/15/23 17:01 Room Air 01/15/23 16:31 Room Air 01/15/23 16:01 Room Air 01/15/23 17:13 01/15/23 16:14 01/15/23 16:08 01/15/23 15:37 Room Air 01/15/23 13:12 Laboratory Results WBC 12.[address] chest IV contrast: FINDINGS: Aberrant right subclavian artery is incidentally noted. No enlarged mediastinal or hilar lymph nodes are present. The size if the heart is normal. There is no pericardial effusion. A small hiatal hernia is present. There are multiple mildly enlarged left axillary lymph nodes. Index left axillary lymph node on image 102 of 286 measures 1.7 x 1.3 cm. This node contains a fatty hilum and is likely reactive. Note is made of left inferior axillary skin thickening. A 10.8 x 4.5 cm focus of left inferior axillary stranding and associated fluid is noted. There is no rim-enhancing fluid collection. There is no soft tissue gas. No additional sites of inflammation are identified on this examination. There is no consolidation to suggest pneumonia. Linear and ground glass densities within the lungs favor atelectasis. The central airways are patent. There is no pneumothorax or pleural effusion. Patchy steatosis is incidentally noted. IMPRESSION: 1. Left inferior axillary skin thickening and moderate subcutaneous stranding and fluid extends for approximately 10.8 x 4.5 cm. This is suggestive of an infectious process with cellulitis and phlegmon. No drainable fluid collection to suggest abscess at this time. 2. Multiple mildly enlarged left axillary lymph nodes which are likely reactive. ACT 112: Negative or not required by law. Electronically signed by: Keith Cooney M.D. 01/15/2023 6:31 PM Dictated:01/15/231821 Transcribed: 01/15/231821 PG Care Time/CCT Total # of Minutes Spent Total Time Spent with Patient: Total time spent is greater than 50% in coordination of care (as documented) at patient's floor/unit and/or counseling patient: Coding Level of Care Code 65233 IN/OBS CONSULT LVL 2,35M Diagnoses Abscess of axilla, left L02.412 Cellulitis L03.90
--- NOTE | 2023-01-15 19:51 | Procedure Note ---
Procedure Note Date of Service January 15, 2023 Note Consent is on the patient's chart: Beside I&D performed, extending the existing stab incision from previous lancing The left axilla was prepped and draped in typical sterile fashion using Betadine and blue towels The skin was anesthetized with 1% Lidocaine around the area of previous lancing An 11 blade was used to extend a 3cm skin incision Purulent tinged clear fluid and blood was expressed from the area, mostly bloody, minimal purulence Abscess pocket extends to the inferior axilla without much fluid in this location The area was gently irrigated with Betadine and saline The wound was lightly packed with the end of a 4x4 gauze The area was covered with gauze and secured with tap The patient tolerated the procedure well Coding CPT Codes Skin and Soft Tissue - Skin and Soft Tissue: 03364 Debridement, subcutaneous tissue, first 20 sq cm ([id number]) [facility] Procedure Codes (Charges) Indication for Procedure Indication for procedure: Fluid collection at left axilla in a patient with fever and leukocytosis Skin and Soft Tissue Skin and Soft Tissue: 99776 Debridement, subcutaneous tissue, first 20 sq cm
[2023-01-15] MEDS ORDERED: PIPERACILLIN/TAZOBACTAM 4.5 GM (over 30 mins) IV ONE (20:30)
[2023-01-15] MEDS ORDERED: GABAPENTIN 800 MG TAB PO SCH (21:00)
[2023-01-15] MEDS ORDERED: ONDANSETRON INJ 2 MG/ML 2 ML VIAL IV PRN (21:08)
[2023-01-15] MEDS: SODIUM CHLORIDE 0.9% 1000ML 1,000 ML IV SCH (21:46)
[2023-01-15] MEDS: GABAPENTIN 800 MG TAB PO SCH (21:47)
[2023-01-15] MEDS: PANTOprazole 40 MG TAB PO SCH (21:48)
[2023-01-15] MEDS: FAMOTIDINE 20 MG TAB PO SCH (21:48)
[2023-01-15] MEDS: MoRPHine SULFATE 2 MG/ML CARP IV PRN (22:49)
[2023-01-15] MEDS: ACETAMINOPHEN 325 MG TAB PO PRN (22:50)
[2023-01-16] MEDS: PIPERACILLIN/TAZOBACTAM 4.5 GM in DEXTROSE 5% 100 ML IV SCH ×3 (01:25→17:47)
[2023-01-16] MEDS: SODIUM CHLORIDE 0.9% 1000ML 1,000 ML IV SCH (05:58)
--- NOTE | 2023-01-16 08:28 | Hospitalist Progress Note ---
Date of Service January 16, 2023 Assessment & Plan (1) Sepsis: (2) Abscess of axilla, left: (3) Cellulitis of axilla, left: Plan: -given IV daptomycin and ceftriaxone in the ER, now continue IV antibiotics zosyn and daptomycin -WBC of 12.88 K on admission, febrile with temp 39.5 C on admission, negative lactic acid and procalcitonin -No history of hidradenitis suppurativa -CT axilla obtained - 1. Left inferior axillary skin thickening and moderate subcutaneous stranding and fluid extends for approximately 10.8 x 4.5 cm. This is suggestive of an infectious process with cellulitis and phlegmon. No drainab le fluid collection to suggest abscess at this time. 2. Multiple mildly enlarged left axillary lymph nodes which are likely reactive. - Surgery consulted and I&D performed -cultures obtained in ED and pending (copious pus per ED note) -pain control with Tylenol, oxycodone p.o. (4) CML (chronic myelocytic leukemia): Plan: - diagnosed in 2010 -Follows with Landon Ramirez and Kuldip in [place] with yearly labs - pt does not know name of physician, states that he moved to [place]. May need to re-establish with heme locally - discuss prio to dc (5) GERD (gastroesophageal reflux disease): Plan: -continue omeprazole DVT PPx: - teds, scds, ambulatory CODE: Full code Dispo: From home, likely to remain in the hospital x 1-2 days Admission and Anticipated Discharge Date Admission Date: January 15, 2023 Subjective Patient seen in follow-up of left axillary abscess, status post I&D Patient with history of CML Cultures obtained in the ED, and pending Currently on Zosyn and dapto Laying in bed in NAD no more fever, chills, chest pain or shortness of breath, no abd. pain Continues to have pain in left axilla, which is still significantly swollen and erythematous Review of Systems Review of Systems: All systems reviewed & are unremarkable except as noted in Subjective Physical Exam Physical Exam: General: obese F in NAD Head: Normocephalic, atraumatic ENT: PERRL, EOMI Chest: Clear to auscultation, on room air, no adventitious breath sounds Cardiac: Regular rate and rhythm, no murmur Abdominal: NABS x 4 quadrants, soft, nondistended, nontender to palpation Extremities: Left axillary region erythematous, edematous, s/p I&D and still draining, dressings applied + tender to palp. Psych: Normal mood and affect Neuro: AAO x 3, able to answer questions appropriately, speech fluent, moves extremities Results & Data Results & Data Vital Signs (Past 12 Hours) Vital Signs Temp Pulse Pulse Resp BP Pulse Ox O2 Del Method 01/16/23 07:04 37.0 C 74 18 99/65 L 93 Room Air 01/16/23 05:45 37.3 C 01/15/23 23:13 37.2 C 81 16 105/72 95 Room Air 01/15/23 21:10 Room Air 01/15/23 21:10 36.9 C 70 16 103/68 96 Room Air Laboratory Results 01/16/23 01/16/23 01/16/23 Range/Units 07:53 07:53 07:53 WBC 9.99 (4.8-10.8) K/ul RBC 3.42 L (4.20-5.40) M/uL Hgb 10.4 L (12.0-16.0) g/dl Hct 32.0 L (37.0-47.0) % MCV 93.6 (80.0-100.0) fL MCH 30.4 (25.0-34.0) pg MCHC 32.5 (32.0-36.0) g/dL RDW Std Deviation 49.1 H (36.4-46.3) fL RDW Coeff of Malena 14.3 (11.5-14.5) % Plt Count 150 (130-400) K/uL MPV 12.9 H (9.4-12.4) fL Immature Gran % (Auto) % Neut % (Auto) % Lymph % (Auto) % [place] % (Auto) % Eos % (Auto) % Baso % (Auto) % Neut # (Auto) (1.40-6.50) K/uL Lymph # (Auto) (1.2-3.4) K/uL [place] # (Auto) (0.11-0.59) K/uL Eos # (Auto) (0-0.50) K/uL Baso # (Auto) (0-0.2) K/uL Immature Gran # (Auto) (0.01-0.20) K/uL PT (9.0-12.0) Seconds INR (0.9-1.1) APTT (21.0-31.0) Seconds PTT Ratio Sodium 138 (136-145) mmol/L Potassium 4.0 (3.5-5.1) mmol/L Chloride 106 (98-107) mmol/L Carbon Dioxide 26 (21-32) mmol/L Anion Gap 6 (3-11) BUN 8 (6-23) mg/dl Creatinine 0.84 (0.6-1.2) mg/dl Est Cr Clr Drug Dosing 86.3 ml/min Est GFR ( Amer) 87.6 ml/min Est GFR (Non-Af Amer) 75.5 ml/min BUN/Creatinine Ratio 9.5 L (10-20) Glucose 102 H (70-99(Fasting)) mg/dl Estimat Average Glucose Pending Hemoglobin A1c Pending Lactate (0.4-2.0) mmol/L Calcium 8.1 L (8.5-10.1) mg/dl Magnesium (1.7-2.4) mg/dl Total Bilirubin (0.2-1.0) mg/dl AST (13-39) U/L ALT (7-52) U/L Alkaline Phosphatase (34-104) U/L Total Protein (6.0-8.3) gm/dl Albumin (3.4-5.0) gm/dl Globulin (2.5-4.0) gm/dl Albumin/Globulin Ratio (0.9-2) Triglycerides 43 (0-150) mg/dl Cholesterol 116 (0-200) mg/dl LDL Cholesterol, Calc 69 mg/dl VLDL Cholesterol, Calc 9 (0-30) mg/dl HDL Cholesterol 38 mg/dl Cholesterol/HDL Ratio 3.1 (0-5) Procalcitonin (0-0.5) ng/ml Urine Color Urine Appearance (Clear) Urine pH (4.5-7.5) Ur Specific [place] (1.000-1.030) Urine Protein (Negative) Urine Glucose (UA) (Negative) Urine Ketones (Negative) Urine Blood (Negative) Urine Nitrite (Negative) Urine Bilirubin (Negative) Urine Urobilinogen (Negative) Ur Leukocyte Esterase (Negative) Urine WBC (Auto) (0-5) /hpf Urine RBC (Auto) (0-4) /hpf U Hyaline Cast (Auto) (0-5) /lpf U Epithel Cells (Auto) (0-5) /lpf Urine Bacteria (Auto) (Negative) Nasal Screen MRSA (PCR) (Negative) SARS-CoV-2, RNA, NAAT (NEGATIVE) 01/15/23 01/15/23 01/15/23 Range/Units 22:42 16:30 14:12 WBC (4.8-10.8) K/ul RBC (4.20-5.40) M/uL Hgb (12.0-16.0) g/dl Hct (37.0-47.0) % MCV (80.0-100.0) fL MCH (25.0-34.0) pg MCHC (32.0-36.0) g/dL RDW Std Deviation (36.4-46.3) fL RDW Coeff of Malena (11.5-14.5) % Plt Count (130-400) K/uL MPV (9.4-12.4) fL Immature Gran % (Auto) % Neut % (Auto) % Lymph % (Auto) % [place] % (Auto) % Eos % (Auto) % Baso % (Auto) % Neut # (Auto) (1.40-6.50) K/uL Lymph # (Auto) (1.2-3.4) K/uL [place] # (Auto) (0.11-0.59) K/uL Eos # (Auto) (0-0.50) K/uL Baso # (Auto) (0-0.2) K/uL Immature Gran # (Auto) (0.01-0.20) K/uL PT (9.0-12.0) Seconds INR (0.9-1.1) APTT (21.0-31.0) Seconds PTT Ratio Sodium (136-145) mmol/L Potassium (3.5-5.1) mmol/L Chloride (98-107) mmol/L Carbon Dioxide (21-32) mmol/L Anion Gap (3-11) BUN (6-23) mg/dl Creatinine (0.6-1.2) mg/dl Est Cr Clr Drug Dosing ml/min Est GFR ( Amer) ml/min Est GFR (Non-Af Amer) ml/min BUN/Creatinine Ratio (10-20) Glucose (70-99(Fasting)) mg/dl Estimat Average Glucose Hemoglobin A1c Lactate (0.4-2.0) mmol/L Calcium (8.5-10.1) mg/dl Magnesium (1.7-2.4) mg/dl Total Bilirubin (0.2-1.0) mg/dl AST (13-39) U/L ALT (7-52) U/L Alkaline Phosphatase (34-104) U/L Total Protein (6.0-8.3) gm/dl Albumin (3.4-5.0) gm/dl Globulin (2.5-4.0) gm/dl Albumin/Globulin Ratio (0.9-2) Triglycerides (0-150) mg/dl Cholesterol (0-200) mg/dl LDL Cholesterol, Calc mg/dl VLDL Cholesterol, Calc (0-30) mg/dl HDL Cholesterol mg/dl Cholesterol/HDL Ratio (0-5) Procalcitonin (0-0.5) ng/ml Urine Color Yellow Urine Appearance Clear (Clear) Urine pH 6.5 (4.5-7.5) Ur Specific [place] 1.019 (1.000-1.030) Urine Protein Trace H (Negative) Urine Glucose (UA) Negative (Negative) Urine Ketones Negative (Negative) Urine Blood Negative (Negative) Urine Nitrite Negative (Negative) Urine Bilirubin Negative (Negative) Urine Urobilinogen Negative (Negative) Ur Leukocyte Esterase Negative (Negative) Urine WBC (Auto) 1-5 (0-5) /hpf Urine RBC (Auto) 0-4 (0-4) /hpf U Hyaline Cast (Auto) 1-5 (0-5) /lpf U Epithel Cells (Auto) >30 H (0-5) /lpf Urine Bacteria (Auto) Negative (Negative) Nasal Screen MRSA (PCR) Negative (Negative) SARS-CoV-2, RNA, NAAT NEGATIVE (NEGATIVE) 01/15/23 01/15/23 01/15/23 Range/Units 14:00 14:00 14:00 WBC (4.8-10.8) K/ul RBC (4.20-5.40) M/uL Hgb (12.0-16.0) g/dl Hct (37.0-47.0) % MCV (80.0-100.0) fL MCH (25.0-34.0) pg MCHC (32.0-36.0) g/dL RDW Std Deviation (36.4-46.3) fL RDW Coeff of Malena (11.5-14.5) % Plt Count (130-400) K/uL MPV (9.4-12.4) fL Immature Gran % (Auto) % Neut % (Auto) % Lymph % (Auto) % [place] % (Auto) % Eos % (Auto) % Baso % (Auto) % Neut # (Auto) (1.40-6.50) K/uL Lymph # (Auto) (1.2-3.4) K/uL [place] # (Auto) (0.11-0.59) K/uL Eos # (Auto) (0-0.50) K/uL Baso # (Auto) (0-0.2) K/uL Immature Gran # (Auto) (0.01-0.20) K/uL PT (9.0-12.0) Seconds INR (0.9-1.1) APTT (21.0-31.0) Seconds PTT Ratio Sodium 136 (136-145) mmol/L Potassium 4.5 (3.5-5.1) mmol/L Chloride 102 (98-107) mmol/L Carbon Dioxide 27 (21-32) mmol/L Anion Gap 7 (3-11) BUN 11 (6-23) mg/dl Creatinine 0.89 (0.6-1.2) mg/dl Est Cr Clr Drug Dosing 83.2 ml/min Est GFR ( Amer) 81.6 ml/min Est GFR (Non-Af Amer) 70.4 ml/min BUN/Creatinine Ratio 12.4 (10-20) Glucose 91 (70-99(Fasting)) mg/dl Estimat Average Glucose Hemoglobin A1c Lactate 1.8 (0.4-2.0) mmol/L Calcium 9.3 (8.5-10.1) mg/dl Magnesium 2.0 (1.7-2.4) mg/dl Total Bilirubin 0.8 (0.2-1.0) mg/dl AST 28 (13-39) U/L ALT 31 (7-52) U/L Alkaline Phosphatase 85 (34-104) U/L Total Protein 8.1 (6.0-8.3) gm/dl Albumin 4.1 (3.4-5.0) gm/dl Globulin 4.0 (2.5-4.0) gm/dl Albumin/Globulin Ratio 1.0 (0.9-2) Triglycerides (0-150) mg/dl Cholesterol (0-200) mg/dl LDL Cholesterol, Calc mg/dl VLDL Cholesterol, Calc (0-30) mg/dl HDL Cholesterol mg/dl Cholesterol/HDL Ratio (0-5) Procalcitonin 0.12 (0-0.5) ng/ml Urine Color Urine Appearance (Clear) Urine pH (4.5-7.5) Ur Specific [place] (1.000-1.030) Urine Protein (Negative) Urine Glucose (UA) (Negative) Urine Ketones (Negative) Urine Blood (Negative) Urine Nitrite (Negative) Urine Bilirubin (Negative) Urine Urobilinogen (Negative) Ur Leukocyte Esterase (Negative) Urine WBC (Auto) (0-5) /hpf Urine RBC (Auto) (0-4) /hpf U Hyaline Cast (Auto) (0-5) /lpf U Epithel Cells (Auto) (0-5) /lpf Urine Bacteria (Auto) (Negative) Nasal Screen MRSA (PCR) (Negative) SARS-CoV-2, RNA, NAAT (NEGATIVE) 01/15/23 01/15/23 Range/Units 14:00 14:00 WBC 12.88 H (4.8-10.8) K/ul RBC 3.94 L (4.20-5.40) M/uL Hgb 11.9 L (12.0-16.0) g/dl Hct 36.8 L (37.0-47.0) % MCV 93.4 (80.0-100.0) fL MCH 30.2 (25.0-34.0) pg MCHC 32.3 (32.0-36.0) g/dL RDW Std Deviation 47.8 H (36.4-46.3) fL RDW Coeff of Malena 14.0 (11.5-14.5) % Plt Count 165 (130-400) K/uL MPV 13.2 H (9.4-12.4) fL Immature Gran % (Auto) 0.4 % Neut % (Auto) 82.0 % Lymph % (Auto) 10.0 % [place] % (Auto) 6.5 % Eos % (Auto) 0.9 % Baso % (Auto) 0.2 % Neut # (Auto) 10.55 H (1.40-6.50) K/uL Lymph # (Auto) 1.29 (1.2-3.4) K/uL [place] # (Auto) 0.84 H (0.11-0.59) K/uL Eos # (Auto) 0.12 (0-0.50) K/uL Baso # (Auto) 0.03 (0-0.2) K/uL Immature Gran # (Auto) 0.05 (0.01-0.20) K/uL PT 10.5 (9.0-12.0) Seconds INR 1.0 (0.9-1.1) APTT 27.0 (21.0-31.0) Seconds PTT Ratio 1.0 Sodium (136-145) mmol/L Potassium (3.5-5.1) mmol/L Chloride (98-107) mmol/L Carbon Dioxide (21-32) mmol/L Anion Gap (3-11) BUN (6-23) mg/dl Creatinine (0.6-1.2) mg/dl Est Cr Clr Drug Dosing ml/min Est GFR ( Amer) ml/min Est GFR (Non-Af Amer) ml/min BUN/Creatinine Ratio (10-20) Glucose (70-99(Fasting)) mg/dl Estimat Average Glucose Hemoglobin A1c Lactate (0.4-2.0) mmol/L Calcium (8.5-10.1) mg/dl Magnesium (1.7-2.4) mg/dl Total Bilirubin (0.2-1.0) mg/dl AST (13-39) U/L ALT (7-52) U/L Alkaline Phosphatase (34-104) U/L Total Protein (6.0-8.3) gm/dl Albumin (3.4-5.0) gm/dl Globulin (2.5-4.0) gm/dl Albumin/Globulin Ratio (0.9-2) Triglycerides (0-150) mg/dl Cholesterol (0-200) mg/dl LDL Cholesterol, Calc mg/dl VLDL Cholesterol, Calc (0-30) mg/dl HDL Cholesterol mg/dl Cholesterol/HDL Ratio (0-5) Procalcitonin (0-0.5) ng/ml Urine Color Urine Appearance (Clear) Urine pH (4.5-7.5) Ur Specific [place] (1.000-1.030) Urine Protein (Negative) Urine Glucose (UA) (Negative) Urine Ketones (Negative) Urine Blood (Negative) Urine Nitrite (Negative) Urine Bilirubin (Negative) Urine Urobilinogen (Negative) Ur Leukocyte Esterase (Negative) Urine WBC (Auto) (0-5) /hpf Urine RBC (Auto) (0-4) /hpf U Hyaline Cast (Auto) (0-5) /lpf U Epithel Cells (Auto) (0-5) /lpf Urine Bacteria (Auto) (Negative) Nasal Screen MRSA (PCR) (Negative) SARS-CoV-2, RNA, NAAT (NEGATIVE) Medications Administered Current Inpatient Medications Acetaminophen (Acetaminophen 325 Mg Tab) 650 mg PO Q4H PRN PRN Reason: Moderate Pain (Scale 4, 5, 6) Stop: 02/14/23 21:07 Last Admin: 01/15/23 22:50 Dose: 650 mg Famotidine (Famotidine 20 Mg Tab) 20 mg PO BID [facility] Stop: 02/14/23 21:07 Last Admin: 01/15/23 21:48 Dose: 20 mg Gabapentin (Gabapentin 800 Mg Tab) 800 mg PO TID [facility] Stop: 02/14/23 21:07 Last Admin: 01/15/23 21:47 Dose: 800 mg Piperacillin Sod/Tazobactam (Sod 4.5 gm/ Dextrose) 120 mls @ 30 mls/hr IV Q8H [facility]; Protocol Stop: 01/23/23 01:59 Last Infusion: 01/16/23 05:17 Dose: Infused Daptomycin 325 mg/ Syringe 6.5 mls @ 3.25 mls/min IV Q24H [facility]; Protocol Stop: 01/21/23 17:01 Sodium Chloride (Nss 1000ml) 1,000 mls @ 125 mls/hr IV .Q8H [facility] Stop: 01/16/23 13:07 Last Admin: 01/16/23 05:58 Dose: 125 mls/hr Morphine Sulfate (Morphine Sulfate 2 Mg/Ml Carp) 2 mg IV Q6H PRN PRN Reason: Pain, moderate rating 6,7,8 Stop: 01/29/23 21:07 Last Admin: 01/15/23 22:49 Dose: 2 mg Ondansetron HCl (Ondansetron Inj 2 Mg/Ml 2 Ml Vial) 4 mg IV Q4H PRN PRN Reason: Nausea And Vomiting Stop: 02/14/23 21:07 Pantoprazole Sodium (Pantoprazole 40 Mg Tab) 40 mg PO BID [facility] Stop: 02/14/23 21:07 Last Admin: 01/15/23 21:48 Dose: 40 mg
[2023-01-16] MEDS ORDERED: SODIUM CHLORIDE 0.9% 1000ML 1,000 ML IV SCH (08:30)
[2023-01-16 08:33] LABS: Hemoglobin 10.4 g/dl (12.0-16.0); Mean Corpuscular Hemoglobin 30.4 pg (25.0-34.0); Mean Corpuscular Hgb Conc 32.5 g/dL (32.0-36.0); Mean Corpuscular Volume 93.6 fL (80.0-100.0); Mean Platelet Volume 12.9 fL (9.4-12.4); Platelet Count 150 K/uL (130-400); RDW Coefficient of Variation 14.3 % (11.5-14.5); RDW Standard Deviation 49.1 fL (36.4-46.3); Red Blood Count 3.42 M/uL (4.20-5.40); White Blood Count 9.99 K/ul (4.8-10.8)
[2023-01-16] MEDS: FAMOTIDINE 20 MG TAB PO SCH ×2 (08:38→20:08)
[2023-01-16] MEDS: GABAPENTIN 800 MG TAB PO SCH ×3 (08:38→20:08)
[2023-01-16] MEDS: PANTOprazole 40 MG TAB PO SCH ×2 (08:38→20:08)
[2023-01-16] MEDS: MoRPHine SULFATE 2 MG/ML CARP IV PRN ×2 (08:41→22:15)
[2023-01-16 09:00] LABS: BUN Creatinine Ratio 9.5 (10-20); Calcium 8.1 mg/dl (8.5-10.1); Chol HDL Ratio 3.1 (0-5); Creatinine Clr Calc Pharmacy 86.3 ml/min; Est GFR (African American) 87.6 ml/min; Est GFR (Non-African American) 75.5 ml/min
[2023-01-16 10:36] LABS: Estimated Average Glucose 111 mg/dl; Hemoglobin A1C 5.5 % (4.5-5.6)
--- NOTE | 2023-01-16 13:04 | Surgery Progress Note ---
Date of Service January 16, 2023 Assessment & Plan (1) Abscess of axilla, left: Plan: Improving, continues to drain purulent fluid. Continue daily dressings changes to include a thin plain packing strip extending to the inferior depth of the wound. Lightly pack and change outside gauze and ABD daily. Minimal tape if any for patient comfort and to preserve the epidermis. F/U cultures to tailor antibiotics for discharge. Consider home health to assist with wound care if patient is eligible and does not think she can perform dressing changes at home. Follow up with my office 1-2 weeks after discharge. Admission and Anticipated Discharge Date Admission Date: January 15, 2023 Subjective Patient was seen this morning. Says she has noticed decreased pain and can now put her arm down without as much discomfort. Still very painful to manipulated the area. Her leukocytosis is resolved this am and she is afebrile. Physical Exam Constitutional: cooperative and comfortable; no acute distress, not ill appearing and not lethargic Chest (Breasts): Breast: normal inspection of axillae (left axillary erythema is decreasing and regressing) Additional Comments: The incision made at continues to allow purulent drainage to be expressed. The packing was changed today as well as the covering gauze and a new ABD was put in place. Tape is avoided since excess tape is pulling on the skin and causes the patient additional pain with dressing changes. This is in an area that can remain in place with a bra or a lightly wrapped IRMA. For now the patient has opted to hold it in place with her arm Results & Data Vital Signs (Past 12 Hours) Vital Signs Temp Pulse Resp BP Pulse Ox O2 Del Method 01/16/23 08:37 78 107/72 95 Room Air 01/16/23 07:04 37.0 C 74 18 99/65 L 93 Room Air 01/16/23 05:45 37.3 C Laboratory Results WBC: 9.99 Coding Level of Care Code 02745 SUB INP/OBS CARE 11/26MIN Diagnoses Abscess of axilla, left L02.412
[2023-01-16] MEDS: DAPTOmycin 325 MG in SYRINGE 0 ML IV SCH (17:47)
--- NOTE | 2023-01-17 00:45 | Electrocardiogram Report ---
Test Reason : Blood Pressure : / mmHG Vent. Rate : 090 BPM Atrial Rate : 090 BPM P-R Int : 142 ms QRS Dur : 070 ms QT Int : 336 ms P-R-T Axes : 027 -08 011 degrees QTc Int : 411 ms Poor data quality, interpretation may be adversely affected Sinus rhythm with sinus arrhythmia Cannot rule out Anterior infarct , age undetermined Abnormal ECG No previous ECGs available Confirmed by Eros Jules ([id number]) on 01/17/2023 12:44:47 AM Referred By: ED Confirmed By:Eros Jules
[2023-01-17] MEDS: PIPERACILLIN/TAZOBACTAM 4.5 GM in DEXTROSE 5% 100 ML IV SCH ×3 (02:19→17:45)
[2023-01-17] MEDS: MoRPHine SULFATE 2 MG/ML CARP IV PRN (06:24)
[2023-01-17 06:35] LABS: Hematocrit (blood only) 34.4 % (37.0-47.0); Mean Corpuscular Hemoglobin 30.1 pg (25.0-34.0); Mean Platelet Volume 12.8 fL (9.4-12.4); Platelet Count 195 K/uL (130-400); RDW Coefficient of Variation 14.3 % (11.5-14.5); RDW Standard Deviation 49.7 fL (36.4-46.3); Red Blood Count 3.66 M/uL (4.20-5.40); White Blood Count 7.84 K/ul (4.8-10.8)
[2023-01-17 07:04] LABS: BUN Creatinine Ratio 9.5 (10-20); Calcium 8.8 mg/dl (8.5-10.1); Creatinine Clr Calc Pharmacy 76.3 ml/min; Est GFR (African American) 75.5 ml/min; Est GFR (Non-African American) 65.1 ml/min; Magnesium 2.2 mg/dl (1.7-2.4); Phosphorus 3.9 mg/dl (2.5-4.9); Potassium 4.5 mmol/L (3.5-5.1)
--- NOTE | 2023-01-17 07:45 | Hospitalist Progress Note ---
Date of Service January 17, 2023 Assessment & Plan (1) Sepsis: (2) Abscess of axilla, left: (3) Cellulitis of axilla, left: Plan: -given IV daptomycin and ceftriaxone in the ER, now continue IV antibiotics zosyn and daptomycin -WBC of 12.88 K on admission, febrile with temp 39.5 C on admission, negative lactic acid and procalcitonin -No history of hidradenitis suppurativa -CT axilla obtained - 1. Left inferior axillary skin thickening and moderate subcutaneous stranding and fluid extends for approximately 10.8 x 4.5 cm. This is suggestive of an infectious process with cellulitis and phlegmon. No drainab le fluid collection to suggest abscess at this time. 2. Multiple mildly enlarged left axillary lymph nodes which are likely reactive. - Surgery consulted and I&D performed -cultures obtained in ED (copious pus per ED note), pos. for MSSA, final results pending -pain control with Tylenol, oxycodone p.o. (4) CML (chronic myelocytic leukemia): Plan: - diagnosed in 2010 -Follows with Landon Ramirez and Kuldip in [place] with yearly labs - pt does not know name of physician, states that he moved to [place]. May need to re-establish with heme locally - discuss prio to dc (5) GERD (gastroesophageal reflux disease): Plan: -continue omeprazole DVT PPx: - teds, scds, ambulatory CODE: Full code Dispo: From home, likely to remain in the hospital x 1-2 days Admission and Anticipated Discharge Date Admission Date: January 15, 2023 Subjective Patient seen in follow-up of left axillary abscess, status post I&D Patient with history of CML Cultures obtained in the ED, pos. for MSSA Currently on Zosyn and dapto Laying in bed in NAD no more fever, chills, chest pain or shortness of breath, no abd. pain Continues to have pain in left axilla, but improved, swelling is somewhat down, erythema somewhat improved as well Review of Systems Review of Systems: All systems reviewed & are unremarkable except as noted in Subjective Physical Exam Physical Exam: General: obese F i n NAD Head: Normoc ephalic, atraumati c ENT: PERRL, EOMI Chest: Clear to a uscultation, on ro om air, no adventi tious breath sound s Cardiac: Regular rate and rhythm, no murmur Abdomina l: NABS x 4 quadra nts, soft, nondist ended, nontender t o palpation Extrem ities: Left axilla ry region erythema tous, edematous, s /p I&D and still d raining, dressings applied + tender to palp. Psych: No rmal mood and affe ct Neuro: AAO x 3, able to answer qu estions appropriat abril, speech fluent , moves extremitie s Results & Data Results & Data Vital Signs (Past 12 Hours) Vital Signs Temp Pulse Resp BP Pulse Ox O2 Del Method 01/17/23 07:40 36.8 C 59 L 18 105/71 95 Room Air 01/16/23 23:37 37 C 72 20 86/62 L 93 Room Air Laboratory Results 01/17/23 01/17/23 01/16/23 Range/Units 05:52 05:52 07:53 WBC 7.84 (4.8-10.8) K/ul RBC 3.66 L (4.20-5.40) M/uL Hgb 11.0 L (12.0-16.0) g/dl Hct 34.4 L (37.0-47.0) % MCV 94.0 (80.0-100.0) fL MCH 30.1 (25.0-34.0) pg MCHC 32.0 (32.0-36.0) g/dL RDW Std Deviation 49.7 H (36.4-46.3) fL RDW Coeff of Malena 14.3 (11.5-14.5) % Plt Count 195 (130-400) K/uL MPV 12.8 H (9.4-12.4) fL Sodium 141 (136-145) mmol/L Potassium 4.5 (3.5-5.1) mmol/L Chloride 105 (98-107) mmol/L Carbon Dioxide 30 (21-32) mmol/L Anion Gap 6 (3-11) BUN 9 (6-23) mg/dl Creatinine 0.95 (0.6-1.2) mg/dl Est Cr Clr Drug Dosing 76.3 ml/min Est GFR ( Amer) 75.5 ml/min Est GFR (Non-Af Amer) 65.1 ml/min BUN/Creatinine Ratio 9.5 L (10-20) Glucose 103 H (70-99(Fasting)) mg/dl Estimat Average Glucose 111 mg/dl Hemoglobin A1c 5.5 (4.5-5.6) % Calcium 8.8 (8.5-10.1) mg/dl Phosphorus 3.9 (2.5-4.9) mg/dl Magnesium 2.2 (1.7-2.4) mg/dl Triglycerides (0-150) mg/dl Cholesterol (0-200) mg/dl LDL Cholesterol, Calc mg/dl VLDL Cholesterol, Calc (0-30) mg/dl HDL Cholesterol mg/dl Cholesterol/HDL Ratio (0-5) 01/16/23 01/16/23 Range/Units 07:53 07:53 WBC 9.99 (4.8-10.8) K/ul RBC 3.42 L (4.20-5.40) M/uL Hgb 10.4 L (12.0-16.0) g/dl Hct 32.0 L (37.0-47.0) % MCV 93.6 (80.0-100.0) fL MCH 30.4 (25.0-34.0) pg MCHC 32.5 (32.0-36.0) g/dL RDW Std Deviation 49.1 H (36.4-46.3) fL RDW Coeff of Malena 14.3 (11.5-14.5) % Plt Count 150 (130-400) K/uL MPV 12.9 H (9.4-12.4) fL Sodium 138 (136-145) mmol/L Potassium 4.0 (3.5-5.1) mmol/L Chloride 106 (98-107) mmol/L Carbon Dioxide 26 (21-32) mmol/L Anion Gap 6 (3-11) BUN 8 (6-23) mg/dl Creatinine 0.84 (0.6-1.2) mg/dl Est Cr Clr Drug Dosing 86.3 ml/min Est GFR ( Amer) 87.6 ml/min Est GFR (Non-Af Amer) 75.5 ml/min BUN/Creatinine Ratio 9.5 L (10-20) Glucose 102 H (70-99(Fasting)) mg/dl Estimat Average Glucose mg/dl Hemoglobin A1c (4.5-5.6) % Calcium 8.1 L (8.5-10.1) mg/dl Phosphorus (2.5-4.9) mg/dl Magnesium (1.7-2.4) mg/dl Triglycerides 43 (0-150) mg/dl Cholesterol 116 (0-200) mg/dl LDL Cholesterol, Calc 69 mg/dl VLDL Cholesterol, Calc 9 (0-30) mg/dl HDL Cholesterol 38 mg/dl Cholesterol/HDL Ratio 3.1 (0-5) Medications Administered Current Inpatient Medications Acetaminophen (Acetaminophen 325 Mg Tab) 650 mg PO Q4H PRN PRN Reason: Moderate Pain (Scale 4, 5, 6) Stop: 02/14/23 21:07 Last Admin: 01/15/23 22:50 Dose: 650 mg Famotidine (Famotidine 20 Mg Tab) 20 mg PO BID [facility] Stop: 02/14/23 21:07 Last Admin: 01/16/23 20:08 Dose: 20 mg Gabapentin (Gabapentin 800 Mg Tab) 800 mg PO TID [facility] Stop: 02/14/23 21:07 Last Admin: 01/16/23 20:08 Dose: 800 mg Piperacillin Sod/Tazobactam (Sod 4.5 gm/ Dextrose) 120 mls @ 30 mls/hr IV Q8H [facility]; Protocol Stop: 01/23/23 01:59 Last Infusion: 01/17/23 06:19 Dose: Infused Daptomycin 325 mg/ Syringe 6.5 mls @ 3.25 mls/min IV Q24H [facility]; Protocol Stop: 01/21/23 17:01 Last Admin: 01/16/23 17:47 Dose: 3.25 mls/min Morphine Sulfate (Morphine Sulfate 2 Mg/Ml Carp) 2 mg IV Q6H PRN PRN Reason: Pain, moderate rating 6,7,8 Stop: 01/29/23 21:07 Last Admin: 01/17/23 06:24 Dose: 2 mg Ondansetron HCl (Ondansetron Inj 2 Mg/Ml 2 Ml Vial) 4 mg IV Q4H PRN PRN Reason: Nausea And Vomiting Stop: 02/14/23 21:07 Pantoprazole Sodium (Pantoprazole 40 Mg Tab) 40 mg PO BID [facility] Stop: 02/14/23 21:07 Last Admin: 01/16/23 20:08 Dose: 40 mg
[2023-01-17] MEDS: FAMOTIDINE 20 MG TAB PO SCH ×2 (08:31→20:12)
[2023-01-17] MEDS: GABAPENTIN 800 MG TAB PO SCH ×3 (08:31→20:12)
[2023-01-17] MEDS: PANTOprazole 40 MG TAB PO SCH ×2 (08:32→20:12)
[2023-01-17] MEDS ORDERED: POLYETHYLENE (MIRALAX) 17 GM PACK PO PRN (13:36)
[2023-01-17] MEDS ORDERED: GLYCERIN ADULT 12 SUPP/BOX SUPP PR PRN (13:42)
[2023-01-17] MEDS: SENNA 8.6 MG TAB PO SCH (14:05)
--- NOTE | 2023-01-17 14:17 | Surgery Progress Note ---
Date of Service January 17, 2023 Assessment & Plan (1) Abscess of axilla, left: Plan: 01/17/2023 2:[address] Asencio F/U S/P I/D left axillary abscess, POD 2 I repacking the wound with Keflex, doing better, still cellulitis on left axillary. continue iv antibiotic, will F/U, Admission and Anticipated Discharge Date Admission Date: January 15, 2023 Supervising Physician Co-Signing Physician Notes Patient is a 62-year-old female with history of CML, pulmonary hypertension and other medical problems presents with history of left axilla abscess which has been gradually worsening over the past 3 weeks with swelling, pain, tenderness. Patient had similar abscesses in the past. She believes to have ingrowing hair which is likely causing the abscess. She admits to have fever and has been taking ibuprofen to control it. Please review HPI for complete details of presentation. Blood work suggestive of leukocytosis 12.8 K, hemoglobin 11.9, normal lactate, procalcitonin levels, blood work otherwise within normal limits. CT suggestive of left inferior axillary abscess measuring 10.18 x 4.5 cm. Chest x-ray showed no acute process. EKG showed normal sinus rhythm, QTc 411., Nonspecific ST-T wave changes. Patient is admitted for management of sepsis secondary to left axilla abscess/cellulitis. Agree with broad-spectrum antibiotics with daptomycin, Zosyn. Blood, wound cultures obtained. Appreciate surgery input for I&D. IV fluids. Pain control. Check MRSA screen. I personally reviewed the record. Patient is interviewed and examined at bedside. Patient's care is coordinated with Ruba Reich PA-C. Please refer to the documentation above for details of patient's presentation and for discussion of other issues. Subjective Patient seen in follow-up of left axillary abscess, status post I&D Patient with history of CML Cultures obtained in the ED, and pending Currently on Zosyn and dapto Laying in bed in NAD no more fever, chills, chest pain or shortness of breath, no abd. pain Continues to have pain in left axilla, which is still significantly swollen and erythematous F/U S/P I/D left axillary abscess, pt is doing better, still have pain on left axillary, packing came out this morning, no fever, wound culture reviewed- Gram Stain Final 01/15/23-2299 Gram Stain Result Few WBCs Seen Rare Gram Positive Cocci Aero/Nereida Cult Preliminary 01/17/23-1230 Organism 1 Staphylococcus aureus Quantity Moderate Sens Sensitivities to Follow No Anaerobes Isolated No Anaerobes Isolated S aureus RX M.I.C. --- --------- Clindamycin S <=0.5 Daptomycin S <=0.5 Erythromycin S <=0.5 Oxacillin S <=0.25 Tetracycline S <=4 Trimeth/Sulfa S <=0.5/9.5 Vancomycin S 2 Physical Exam Constitutional: WD/WN, vitals as above Eyes: PERRL, conjunctivae normal, anicteric sclerae Neck: trachea midline, no thyromegaly Respiratory: normal respiratory effort, lungs clear to auscultation Skin: some redness and tenderness at left axillary, some drainage from incision site, Neurologic: patellar DTR's 2+ bilat, sensation intact Psychiatric: A+Ox3, euthymic affect Results & Data Vital Signs (Past 12 Hours) Vital Signs Temp Pulse Resp BP Pulse Ox O2 Del Method 01/17/23 07:40 36.8 C 59 L 18 105/71 95 Room Air Laboratory Results Abnormal lab results 01/17/23 01/17/23 Range/Units 05:52 05:52 RBC 3.66 L (4.20-5.40) M/uL Hgb 11.0 L (12.0-16.0) g/dl Hct 34.4 L (37.0-47.0) % RDW Std Deviation 49.7 H (36.4-46.3) fL MPV 12.8 H (9.4-12.4) fL BUN/Creatinine Ratio 9.5 L (10-20) Glucose 103 H (70-99(Fasting)) mg/dl
[2023-01-17] MEDS: DAPTOmycin 325 MG in SYRINGE 0 ML IV SCH (16:38)
[2023-01-17] MEDS: oxyCODONE HCL IR 5 MG TAB (IMMEDIATE RELEASE) PO PRN ×2 (16:53→22:26)
[2023-01-17] MEDS: MICONAZOLE NITRATE 2% VAG CR 45 GM TUBE PV SCH (20:17)
[2023-01-18] MEDS: PIPERACILLIN/TAZOBACTAM 4.5 GM in DEXTROSE 5% 100 ML IV SCH ×3 (02:09→17:35)
[2023-01-18 06:40] LABS: Hematocrit (blood only) 37.1 % (37.0-47.0); Hemoglobin 11.9 g/dl (12.0-16.0); Mean Corpuscular Hemoglobin 29.9 pg (25.0-34.0); Mean Corpuscular Hgb Conc 32.1 g/dL (32.0-36.0); Mean Corpuscular Volume 93.2 fL (80.0-100.0); Mean Platelet Volume 12.3 fL (9.4-12.4); Platelet Count 216 K/uL (130-400); RDW Standard Deviation 48.1 fL (36.4-46.3); Red Blood Count 3.98 M/uL (4.20-5.40); White Blood Count 5.27 K/ul (4.8-10.8)
[2023-01-18 06:56] LABS: BUN Creatinine Ratio 10.8 (10-20); Calcium 9.3 mg/dl (8.5-10.1); Creatinine Clr Calc Pharmacy 77.9 ml/min; Est GFR (African American) 77.4 ml/min; Est GFR (Non-African American) 66.8 ml/min; Magnesium 2.1 mg/dl (1.7-2.4); Phosphorus 4.3 mg/dl (2.5-4.9)
[2023-01-18] MEDS: oxyCODONE HCL IR 5 MG TAB (IMMEDIATE RELEASE) PO PRN ×2 (08:19→17:49)
[2023-01-18] MEDS: GABAPENTIN 800 MG TAB PO SCH ×3 (08:20→21:44)
[2023-01-18] MEDS: FAMOTIDINE 20 MG TAB PO SCH ×2 (08:21→21:44)
[2023-01-18] MEDS: SENNA 8.6 MG TAB PO SCH (08:21)
[2023-01-18] MEDS: PANTOprazole 40 MG TAB PO SCH ×2 (08:21→21:44)
--- NOTE | 2023-01-18 12:38 | Hospitalist Progress Note ---
Date of Service January 18, 2023 Assessment & Plan (1) Sepsis: (2) Abscess of axilla, left: (3) Cellulitis of axilla, left: Plan: -given IV daptomycin and ceftriaxone in the ER, now continue IV antibiotics zosyn and daptomycin -WBC of 12.88 K on admission, febrile with temp 39.5 C on admission, negative lactic acid and procalcitonin -No history of hidradenitis suppurativa -CT axilla obtained - 1. Left inferior axillary skin thickening and moderate subcutaneous stranding and fluid extends for approximately 10.8 x 4.5 cm. This is suggestive of an infectious process with cellulitis and phlegmon. No drainab le fluid collection to suggest abscess at this time. 2. Multiple mildly enlarged left axillary lymph nodes which are likely reactive. - Surgery consulted and I&D performed -cultures obtained in ED (copious pus per ED note), still draining pus, cultx positive for MSSA, final results pending -pain control with Tylenol, oxycodone p.o. (4) CML (chronic myelocytic leukemia): Plan: - diagnosed in 2010 -Follows with Landon Ramirez and Kuldip in [place] with yearly labs - pt does not know name of physician, states that he moved to [place]. May need to re-establish with [facility] locally - discuss prio to dc (5) GERD (gastroesophageal reflux disease): Plan: -continue omeprazole DVT PPx: - teds, scds, ambulatory CODE: Full code Dispo: From home, likely to remain in the hospital x 1-2 days Admission and Anticipated Discharge Date Admission Date: January 15, 2023 Subjective Patient seen in follow-up of left axillary abscess, status post I&D Patient with history of CML Cultures obtained in the ED, pos. for MSSA Currently on Zosyn and dapto Sitting up in chair, in NAD no more fever, chills, chest pain or shortness of breath, no abd. pain Continues to have pain in left axilla, but much improved, swelling and erythema improved and arm mobility also improved Able to express pus from the abscess, draining well Review of Systems Review of Systems: All systems reviewed & are unremarkable except as noted in Subjective Physical Exam Physical Exam: General: obese F i n NAD Head: Normoc ephalic, atraumati c ENT: PERRL, EOMI Chest: Clear to a uscultation, on ro om air, no adventi tious breath sound s Cardiac: Regular rate and rhythm, no murmur Abdomina l: NABS x 4 quadra nts, soft, nondist ended, nontender t o palpation Extrem ities: Left axilla ry region erythema tous, edematous (i mproved), s/p I&D and still draining pus, dressings ap plied + tender to palp. Psych: Tamar l mood and affect Neuro: AAO x 3, ab le to answer quest ions appropriately , speech fluent, m oves extremities Results & Data Results & Data Vital Signs (Past 12 Hours) Vital Signs Temp Pulse Resp BP Pulse Ox O2 Del Method 01/18/23 07:20 Room Air 01/18/23 07:14 36.7 C 60 18 141/90 H 99 Room Air Laboratory Results 01/18/23 01/18/23 Range/Units 06:16 06:16 WBC 5.27 (4.8-10.8) K/ul RBC 3.98 L (4.20-5.40) M/uL Hgb 11.9 L (12.0-16.0) g/dl Hct 37.1 (37.0-47.0) % MCV 93.2 (80.0-100.0) fL MCH 29.9 (25.0-34.0) pg MCHC 32.1 (32.0-36.0) g/dL RDW Std Deviation 48.1 H (36.4-46.3) fL RDW Coeff of Malena 14.0 (11.5-14.5) % Plt Count 216 (130-400) K/uL MPV 12.3 (9.4-12.4) fL Sodium 142 (136-145) mmol/L Potassium 4.0 (3.5-5.1) mmol/L Chloride 105 (98-107) mmol/L Carbon Dioxide 29 (21-32) mmol/L Anion Gap 8 (3-11) BUN 10 (6-23) mg/dl Creatinine 0.93 (0.6-1.2) mg/dl Est Cr Clr Drug Dosing 77.9 ml/min Est GFR ( Amer) 77.4 ml/min Est GFR (Non-Af Amer) 66.8 ml/min BUN/Creatinine Ratio 10.8 (10-20) Glucose 90 (70-99(Fasting)) mg/dl Calcium 9.3 (8.5-10.1) mg/dl Phosphorus 4.3 (2.5-4.9) mg/dl Magnesium 2.1 (1.7-2.4) mg/dl Medications Administered Current Inpatient Medications Acetaminophen (Acetaminophen 325 Mg Tab) 650 mg PO Q4H PRN PRN Reason: Moderate Pain (Scale 4, 5, 6) Stop: 02/14/23 21:07 Last Admin: 01/15/23 22:50 Dose: 650 mg Famotidine (Famotidine 20 Mg Tab) 20 mg PO BID [facility] Stop: 02/14/23 21:07 Last Admin: 01/18/23 08:21 Dose: 20 mg Gabapentin (Gabapentin 800 Mg Tab) 800 mg PO TID [facility] Stop: 02/14/23 21:07 Last Admin: 01/18/23 08:20 Dose: 800 mg Glycerin (Glycerin Adult 12 Supp/Box Supp) 1 supp [place] DAILY PRN PRN Reason: constipation Stop: 02/16/23 13:41 Piperacillin Sod/Tazobactam (Sod 4.5 gm/ Dextrose) 120 mls @ 30 mls/hr IV Q8H [facility]; Protocol Stop: 01/23/23 01:59 Last Admin: 01/18/23 10:09 Dose: 30 mls/hr Daptomycin 325 mg/ Syringe 6.5 mls @ 3.25 mls/min IV Q24H [facility]; Protocol Stop: 01/21/23 17:01 Last Admin: 01/17/23 16:38 Dose: 3.25 mls/min Miconazole Nitrate (Miconazole Nitrate 2% Vag Cr 45 Gm Tube) 1 appln PV HS [facility] Stop: 02/16/23 20:59 Last Admin: 01/17/23 20:17 Dose: 1 appln Morphine Sulfate (Morphine Sulfate 2 Mg/Ml Carp) 2 mg IV Q6H PRN PRN Reason: Pain, moderate rating 6,7,8 Stop: 01/29/23 21:07 Last Admin: 01/17/23 06:24 Dose: 2 mg Ondansetron HCl (Ondansetron Inj 2 Mg/Ml 2 Ml Vial) 4 mg IV Q4H PRN PRN Reason: Nausea And Vomiting Stop: 02/14/23 21:07 Oxycodone HCl (Oxycodone Hcl Ir 5 Mg Tab (Immediate Release)) 5 mg PO Q5H PRN PRN Reason: Pain Stop: 01/31/23 15:52 Last Admin: 01/18/23 08:19 Dose: 5 mg Pantoprazole Sodium (Pantoprazole 40 Mg Tab) 40 mg PO BID [facility] Stop: 02/14/23 21:07 Last Admin: 01/18/23 08:21 Dose: 40 mg Polyethylene Glycol (Polyethylene (Miralax) 17 Gm Pack) 17 gm PO DAILY PRN PRN Reason: Constipation Stop: 02/16/23 13:35 Sennosides (Senna 8.6 Mg Tab) 8.6 mg PO QAM [facility] Stop: 02/16/23 13:44 Last Admin: 01/18/23 08:21 Dose: 8.6 mg
--- NOTE | 2023-01-18 13:44 | Surgery Progress Note ---
Date of Service January 18, 2023 Assessment & Plan (1) Abscess of axilla, left: Plan: 01/17/2023 2:[address] Asencio F/U S/P I/D left axillary abscess, POD 2 I repacking the wound with Keflex, doing better, still cellulitis on left axillary. continue iv antibiotic, will F/U, 01/18/2023 1:[address] Luis M Kulkarni/Irma S/P I/D left axillary abscess, POD 3 doing better, still cellulitis on left axillary. continue iv antibiotic, will F/U, Admission and Anticipated Discharge Date Admission Date: January 15, 2023 Supervising Physician Co-Signing Physician Notes Patient is a 62-year-old female with history of CML, pulmonary hypertension and other medical problems presents with history of left axilla abscess which has been gradually worsening over the past 3 weeks with swelling, pain, tenderness. Patient had similar abscesses in the past. She believes to have ingrowing hair which is likely causing the abscess. She admits to have fever and has been taking ibuprofen to control it. Please review HPI for complete details of presentation. Blood work suggestive of leukocytosis 12.8 K, hemoglobin 11.9, normal lactate, procalcitonin levels, blood work otherwise within normal limits. CT suggestive of left inferior axillary abscess measuring 10.18 x 4.5 cm. Chest x-ray showed no acute process. EKG showed normal sinus rhythm, QTc 411., Nonspecific ST-T wave changes. Patient is admitted for management of sepsis secondary to left axilla abscess/cellulitis. Agree with broad-spectrum antibiotics with daptomycin, Zosyn. Blood, wound cultures obtained. Appreciate surgery input for I&D. IV fluids. Pain control. Check MRSA screen. I personally reviewed the record. Patient is interviewed and examined at bedside. Patient's care is coordinated with Ruba Reich PA-C. Please refer to the documentation above for details of patient's presentation and for discussion of other issues. Subjective Patient seen in follow-up of left axillary abscess, status post I&D Patient with history of CML Cultures obtained in the ED, pos. for MSSA Currently on Zosyn and dapto Laying in bed in NAD no more fever, chills, chest pain or shortness of breath, no abd. pain Continues to have pain in left axilla, but improved, swelling is somewhat down, erythema somewhat improved as well 01/18/2023 1:41 PM, Dr. Asencio Patient seen in follow-up of left axillary abscess, status post I&D pt feels better, less pain on left axillary, no drainage from wound, the packing came out today, no fever, Physical Exam Constitutional: WD/WN, vitals as above Eyes: PERRL, conjunctivae normal, anicteric sclerae Neck: trachea midline, no thyromegaly Respiratory: normal respiratory effort, lungs clear to auscultation Skin: some edema on left axillary, no drainage from the wound, less redness, Neurologic: patellar DTR's 2+ bilat, sensation intact Psychiatric: A+Ox3, euthymic affect Results & Data Vital Signs (Past 12 Hours) Vital Signs Temp Pulse Resp BP Pulse Ox O2 Del Method 01/18/23 07:20 Room Air 01/18/23 07:14 36.7 C 60 18 141/90 H 99 Room Air Laboratory Results Abnormal lab results 01/18/23 Range/Units 06:16 RBC 3.98 L (4.20-5.40) M/uL Hgb 11.9 L (12.0-16.0) g/dl RDW Std Deviation 48.1 H (36.4-46.3) fL
[2023-01-18] MEDS: DAPTOmycin 325 MG in SYRINGE 0 ML IV SCH (17:37)
[2023-01-18] MEDS: MICONAZOLE NITRATE 2% VAG CR 45 GM TUBE PV SCH (21:45)
[2023-01-19] MEDS: oxyCODONE HCL IR 5 MG TAB (IMMEDIATE RELEASE) PO PRN ×3 (00:35→21:40)
[2023-01-19] MEDS: ACETAMINOPHEN 325 MG TAB PO PRN (00:35)
[2023-01-19] MEDS: PIPERACILLIN/TAZOBACTAM 4.5 GM in DEXTROSE 5% 100 ML IV SCH ×3 (02:14→18:25)
[2023-01-19 07:04] LABS: Hematocrit (blood only) 34.8 % (37.0-47.0); Hemoglobin 11.1 g/dl (12.0-16.0); Mean Corpuscular Hgb Conc 31.9 g/dL (32.0-36.0); Mean Corpuscular Volume 94.1 fL (80.0-100.0); Mean Platelet Volume 12.2 fL (9.4-12.4); Platelet Count 219 K/uL (130-400); RDW Coefficient of Variation 13.9 % (11.5-14.5); RDW Standard Deviation 48.1 fL (36.4-46.3); White Blood Count 4.71 K/ul (4.8-10.8)
[2023-01-19 07:15] LABS: Calcium 8.9 mg/dl (8.5-10.1); Creatinine Clr Calc Pharmacy 72.5 ml/min; Est GFR (African American) 70.9 ml/min; Est GFR (Non-African American) 61.2 ml/min; Phosphorus 4.7 mg/dl (2.5-4.9); Potassium 4.1 mmol/L (3.5-5.1)
[2023-01-19] MEDS ORDERED: ONDANSETRON 2 MG OD TAB PO PRN ×2 (08:25→13:13)
[2023-01-19] MEDS: SENNA 8.6 MG TAB PO SCH (09:02)
--- NOTE | 2023-01-19 09:05 | Hospitalist Progress Note ---
Date of Service January 19, 2023 Assessment & Plan (1) Sepsis: (2) Abscess of axilla, left: (3) Cellulitis of axilla, left: Plan: -given IV daptomycin and ceftriaxone in the ER, now continue IV antibiotics zosyn and daptomycin -WBC of 12.88 K on admission, febrile with temp 39.5 C on admission, negative lactic acid and procalcitonin -No history of hidradenitis suppurativa -CT axilla obtained - 1. Left inferior axillary skin thickening and moderate subcutaneous stranding and fluid extends for approximately 10.8 x 4.5 cm. This is suggestive of an infectious process with cellulitis and phlegmon. No drainab le fluid collection to suggest abscess at this time. 2. Multiple mildly enlarged left axillary lymph nodes which are likely reactive. - Surgery consulted and I&D performed -cultures obtained in ED (copious pus per ED note), still draining pus, cultx positive for MSSA, final results pending -pain control with Tylenol, oxycodone p.o. Yesterday I was able to express pus from the abscess, draining well however not today, and there is area that is quite firm - will discuss further w/surgery (4) CML (chronic myelocytic leukemia): Plan: - diagnosed in 2010 -Follows with Landon Ramirez and Kuldip in [place] with yearly labs - pt does not know name of physician, states that he moved to [place]. May need to re-establish with heme locally - discuss prio to dc (5) GERD (gastroesophageal reflux disease): Plan: -continue omeprazole DVT PPx: - teds, scds, ambulatory CODE: Full code Dispo: From home, likely to remain in the hospital x 1-2 days Admission and Anticipated Discharge Date Admission Date: January 15, 2023 Subjective Patient seen in follow-up of left axillary abscess, status post I&D Patient with history of CML Cultures obtained in the ED, positive for MSSA Currently on Zosyn and dapto Laying in bed, in NAD no more fever, chills, chest pain or shortness of breath, no abd. pain Continues to have pain in left axilla, but much improved, swelling and erythema improved and arm mobility also improved Yesterday I was able to express pus from the abscess, draining well however not today, and there is area that is quite firm - will discuss further w/surgery Review of Systems Review of Systems: All systems reviewed & are unremarkable except as noted in Subjective Physical Exam Physical Exam: General: obese F i n NAD Head: Normoc ephalic, atraumati c ENT: PERRL, EOMI Chest: Clear to a uscultation, on ro om air, no adventi tious breath sound s Cardiac: Regular rate and rhythm, no murmur Abdomina l: NABS x 4 quadra nts, soft, nondist ended, nontender t o palpation Extrem ities: Left axilla ry region erythema tous, edematous (i mproved), s/p I&D and still draining pus, dressings ap plied + tender to palp. Psych: Tamar l mood and affect Neuro: AAO x 3, ab le to answer quest ions appropriately , speech fluent, m oves extremities Results & Data Results & Data Vital Signs (Past 12 Hours) Vital Signs Temp Pulse Pulse Resp BP Pulse Ox O2 Del Method 01/19/23 07:45 36.8 C 64 18 132/84 97 Room Air 01/18/23 21:42 37.3 C 61 18 116/75 97 Room Air Laboratory Results 01/19/23 01/19/23 Range/Units 06:16 06:16 WBC 4.71 L (4.8-10.8) K/ul RBC 3.70 L (4.20-5.40) M/uL Hgb 11.1 L (12.0-16.0) g/dl Hct 34.8 L (37.0-47.0) % MCV 94.1 (80.0-100.0) fL MCH 30.0 (25.0-34.0) pg MCHC 31.9 L (32.0-36.0) g/dL RDW Std Deviation 48.1 H (36.4-46.3) fL RDW Coeff of Malena 13.9 (11.5-14.5) % Plt Count 219 (130-400) K/uL MPV 12.2 (9.4-12.4) fL Sodium 141 (136-145) mmol/L Potassium 4.1 (3.5-5.1) mmol/L Chloride 106 (98-107) mmol/L Carbon Dioxide 30 (21-32) mmol/L Anion Gap 5 (3-11) BUN 14 (6-23) mg/dl Creatinine 1.00 (0.6-1.2) mg/dl Est Cr Clr Drug Dosing 72.5 ml/min Est GFR ( Amer) 70.9 ml/min Est GFR (Non-Af Amer) 61.2 ml/min BUN/Creatinine Ratio 14.0 (10-20) Glucose 92 (70-99(Fasting)) mg/dl Calcium 8.9 (8.5-10.1) mg/dl Phosphorus 4.7 (2.5-4.9) mg/dl Magnesium 2.0 (1.7-2.4) mg/dl Medications Administered Current Inpatient Medications Acetaminophen (Acetaminophen 325 Mg Tab) 650 mg PO Q4H PRN PRN Reason: Moderate Pain (Scale 4, 5, 6) Stop: 02/14/23 21:07 Last Admin: 01/19/23 00:35 Dose: 650 mg Famotidine (Famotidine 20 Mg Tab) 20 mg PO BID [facility] Stop: 02/14/23 21:07 Last Admin: 01/18/23 21:44 Dose: 20 mg Gabapentin (Gabapentin 800 Mg Tab) 800 mg PO TID [facility] Stop: 02/14/23 21:07 Last Admin: 01/18/23 21:44 Dose: 800 mg Glycerin (Glycerin Adult 12 Supp/Box Supp) 1 supp [place] DAILY PRN PRN Reason: constipation Stop: 02/16/23 13:41 Piperacillin Sod/Tazobactam (Sod 4.5 gm/ Dextrose) 120 mls @ 30 mls/hr IV Q8H [facility]; Protocol Stop: 01/23/23 01:59 Last Infusion: 01/19/23 06:20 Dose: Infused Daptomycin 325 mg/ Syringe 6.5 mls @ 3.25 mls/min IV Q24H [facility]; Protocol Stop: 01/21/23 17:01 Last Admin: 01/18/23 17:37 Dose: 3.25 mls/min Miconazole Nitrate (Miconazole Nitrate 2% Vag Cr 45 Gm Tube) 1 appln PV HS [facility] Stop: 02/16/23 20:59 Last Admin: 01/18/23 21:45 Dose: Not Given Morphine Sulfate (Morphine Sulfate 2 Mg/Ml Carp) 2 mg IV Q6H PRN PRN Reason: Pain, moderate rating 6,7,8 Stop: 01/29/23 21:07 Last Admin: 01/17/23 06:24 Dose: 2 mg Ondansetron HCl (Ondansetron Inj 2 Mg/Ml 2 Ml Vial) 4 mg IV Q4H PRN PRN Reason: Nausea And Vomiting Stop: 02/14/23 21:07 Ondansetron HCl (Ondansetron 2 Mg Od Tab) 2 mg PO Q6H PRN PRN Reason: Nausea Stop: 02/18/23 08:24 Last Admin: 01/19/23 09:00 Dose: 2 mg Oxycodone HCl (Oxycodone Hcl Ir 5 Mg Tab (Immediate Release)) 5 mg PO Q5H PRN PRN Reason: Pain Stop: 01/31/23 15:52 Last Admin: 01/19/23 00:35 Dose: 5 mg Pantoprazole Sodium (Pantoprazole 40 Mg Tab) 40 mg PO BID [facility] Stop: 02/14/23 21:07 Last Admin: 01/18/23 21:44 Dose: 40 mg Polyethylene Glycol (Polyethylene (Miralax) 17 Gm Pack) 17 gm PO DAILY PRN PRN Reason: Constipation Stop: 02/16/23 13:35 Sennosides (Senna 8.6 Mg Tab) 8.6 mg PO QAM [facility] Stop: 02/16/23 13:44 Last Admin: 01/19/23 09:02 Dose: Not Given
[2023-01-19] MEDS: GABAPENTIN 800 MG TAB PO SCH ×3 (10:04→21:38)
[2023-01-19] MEDS: ADVANCED PROBIOTIC 1250 MG CAPSULE PO SCH (10:05)
[2023-01-19] MEDS: PANTOprazole 40 MG TAB PO SCH ×2 (10:06→21:38)
[2023-01-19] MEDS: FAMOTIDINE 20 MG TAB PO SCH ×2 (10:06→21:38)
--- NOTE | 2023-01-19 11:36 | Surgery Progress Note ---
I saw this patient with the surgical PA and agree with this plan Date of Service January 19, 2023 Assessment & Plan (1) Abscess of axilla, left: Plan: Patient here w/ abscess and cellulitis of L underarm WBC 4.7, afebrile. Vitals are stable Area of erythema much improved, but still present. she does have an area of induration which was previously there on the anterior portion of her underarm where she believes it may be coming to a head. The previous site of drainage was superficially healed closed, this was probed successfully w/ q-tip and scissors by the surgeon and only very small amount of blood expressed, no significant purulence noted. the area was probed towards the area of concern for patient. It was packed lightly with 1/4" plain nu-gauze to keep open. Continue daily and as needed dressing changes Will re-evaluate the area tomorrow if worsening, may need to open up another area for I&D Cx growing staph aureus currently on dapto/zosyn Admission and Anticipated Discharge Date Admission Date: January 15, 2023 Subjective Patient doing pretty good, however concerned has another abscess brewing. The area that was open was sealed no longer draining. Has some mild nausea this AM. denies any belly pain. reports + BMs. No fevers/chills Physical Exam Physical Exam: awake/alert, no distress Skin: L underarm erythema improving. Area of induration to anterior region of armpit. no drainage noted, area that was currently open superficially closed Results & Data Vital Signs (Past 12 Hours) Vital Signs Temp Pulse Resp BP Pulse Ox O2 Del Method 01/19/23 07:20 Room Air 01/19/23 07:45 36.8 C 64 18 132/84 97 Room Air PG Care Time/CCT Total # of Minutes Spent Total Time Spent with Patient: Total time spent is greater than 50% in coordination of care (as documented) at patient's floor/unit and/or counseling patient: Coding Level of Care Code 44477 SUB INP/OBS CARE 1/25MIN Diagnoses Abscess of axilla, left L02.412
[2023-01-19] MEDS: DAPTOmycin 325 MG in SYRINGE 0 ML IV SCH (16:55)
[2023-01-19] MEDS: MICONAZOLE NITRATE 2% VAG CR 45 GM TUBE PV SCH (21:39)
[2023-01-20] MEDS: PIPERACILLIN/TAZOBACTAM 4.5 GM in DEXTROSE 5% 100 ML IV SCH ×2 (02:11→10:38)
[2023-01-20 07:23] LABS: Hematocrit (blood only) 35.5 % (37.0-47.0); Hemoglobin 11.6 g/dl (12.0-16.0); Mean Corpuscular Hemoglobin 30.1 pg (25.0-34.0); Mean Corpuscular Hgb Conc 32.7 g/dL (32.0-36.0); Platelet Count 255 K/uL (130-400); RDW Coefficient of Variation 13.6 % (11.5-14.5); RDW Standard Deviation 45.7 fL (36.4-46.3); Red Blood Count 3.86 M/uL (4.20-5.40); White Blood Count 4.97 K/ul (4.8-10.8)
[2023-01-20 07:42] LABS: BUN Creatinine Ratio 7.3 (10-20); Creatinine Clr Calc Pharmacy 75.5 ml/min; Est GFR (African American) 74.5 ml/min; Est GFR (Non-African American) 64.3 ml/min; Magnesium 1.8 mg/dl (1.7-2.4); Phosphorus 3.8 mg/dl (2.5-4.9); Potassium 3.6 mmol/L (3.5-5.1)
[2023-01-20] MEDS: GABAPENTIN 800 MG TAB PO SCH ×2 (08:17→13:55)
[2023-01-20] MEDS: ADVANCED PROBIOTIC 1250 MG CAPSULE PO SCH (08:18)
[2023-01-20] MEDS: PANTOprazole 40 MG TAB PO SCH (08:18)
[2023-01-20] MEDS: FAMOTIDINE 20 MG TAB PO SCH (08:18)
--- NOTE | 2023-01-20 12:13 | Surgery Progress Note ---
Date of Service January 20, 2023 Assessment & Plan (1) Abscess of axilla, left: Plan: Significant improvement. Remains afebrile and HD stable. I recommend the patient may be discharged on oral antibiotics from a surgical standpoint to follow up with me in the office on Thursday prior to the weekend. Please establish this appointment prior to discharge. She states she has chronic nausea which gets worse when she is stressed and is on Zofran chronically at home. She will continue her usual regimen. Continue to apply warm compresses, keep the area clean and dry. Admission and Anticipated Discharge Date Admission Date: January 15, 2023 Subjective Patient seen this am. Reports the left axilla feels significantly better. She denies pain at the area, is able to raise her arm and press it without tenderness. She says the area of "hardness' even feels smaller. Physical Exam Constitutional: well groomed, cooperative and comfortable; no acute distress and not ill appearing Respiratory: normal respiratory effort and able to speak in complete sentences; no respiratory distress, no labored breathing and does not use accessory muscles Chest (Breasts): Additional Comments: The left axillary swelling and erythema is even more improved from yesterday. The faint remaining erythema over the area is resolved. The area of induration is smaller and skin wrinkles now appear over the area. The questionable area that was thought to be potentially a very small pocket directly under the skin is regressed and wrinkled. The patient is now able to move her arm in all directions without pain. Examination was did not ellicit any tenderness today. Results & Data Vital Signs (Past 12 Hours) Vital Signs Temp Pulse Resp BP Pulse Ox O2 Del Method 01/20/23 07:57 36.8 C 64 17 149/88 H 99 Room Air PG Care Time/CCT Total # of Minutes Spent Total Time Spent with Patient: Total time spent is greater than 50% in coordination of care (as documented) at patient's floor/unit and/or counseling patient: Coding Level of Care Code 23483 SUB INP/OBS CARE 11/26MIN Diagnoses Abscess of axilla, left L02.412
--- NOTE | 2023-01-20 14:09 | Discharge Summary ---
Date of Service January 20, 2023 Admission HPI Per Admitting Provider This is a 62 yo F with PMHx of CML diagnosed in [id number] who trialed an experimental oral chemotherapy which caused pulmonary hypertension. Chemo was stopped and she required medication for pulmonary hypertension from [id number], GERD, Pt reports chronic neuropathy for the past 10 years or so for which she uses gabapentin for. Her oncological/hematological care was with [facility] and [facility] in [place]. Pt has had yearly labs which are followed but have been stable since 2018. Patient reports that she had a small area under her left armpit which became white and tender approximately 1 month ago. She reports a history of having superficial abscesses happen but go away on their own. This time it worsened, and specifically within the last week it doubled in size from a golf ball size to 2-3 times that size in the past few days. She is acutely tender under her arm and has difficulty moving it due to pain. She admits to having fever, yesterday she checked a rectal temperature which was 104. Medicating with ibuprofen for fever at home. Pt notes poor appetite and limited po intake due to nausea, and vomited last night once. She denies any history of hidradenitis suppurativa or MRSA. Patient notes that she was here in the hospital a few weeks ago for one of her children who required inpatient psych stay where she ended up sleeping on the ER floor. She feels significantly stressed due to family needs recently and feels her immune system is down secondary to this. Admission Exam Per Admitting Provider General: awake, alert, no apparent distress, obese with BMI of 40.5 Head: Normocephalic, atraumatic ENT: PERRL, EOMI, no pharyngeal exudate, mucous membranes moist Chest: Clear to auscultation, on room air, no adventitious breath sounds Cardiac: Regular rate and rhythm, no murmur, no JVD, normal peripheral pulses, good capillary refill Abdominal: NABS x 4 quadrants, soft, nondistended, nontender to palpation, no rebound or guarding Extremities: Left axillary region bright red, obvious large abscess, +fluctuance with area that is pouring out purulent material with 4x4 which is saturated, + Pain with movement of the arm. Erythema outlined at bedside. Other extremities with normal inspection, no peripheral edema or erythema, calfs nontender to palpation Psych: Normal mood and affect Neuro: AAO x 3, strength intact bilaterally and rated 5/5, no motor deficits, speech is clear, no peripheral sensory deficits Principal Diagnosis Axillary abscess Discharge Exam General: obese F in NAD Head: Normocephalic, atraumatic ENT: PERRL, EOMI Chest: Clear to auscultation, on room air, no adventitious breath sounds Cardiac: Regular rate and rhythm, no murmur Abdominal: NABS x 4 quadrants, soft, nondistended, nontender to palpation Extremities: Left axillary region erythematous, edematous much (improved), s/p I&D, dressings applied + tender to palp. (improved) Psych: Normal mood and affect Neuro: AAO x 3, able to answer questions appropriately, speech fluent, moves extremities Discharge Data Allergies Allergy/AdvReac Type Severity Reaction Status Date / Time No Known Allergies Allergy Verified 01/15/23 16:05 Consultations 01/15/23 18:03 ED Decision to Admit Stat 01/15/23 21:08 Consult General Surgery Routine Ordered Studies 01/15/23 17:28 CT chest diagnostic w con Stat FINDINGS: Aberrant right subclavian artery is incidentally noted. No enlarged mediastinal or hilar lymph nodes are present. The size if the heart is normal. There is no pericardial effusion. A small hiatal hernia is present. There are multiple mildly enlarged left axillary lymph nodes. Index left axillary lymph node on image 102 of 286 measures 1.7 x 1.3 cm. This node contains a fatty hilum and is likely reactive. Note is made of left inferior axillary skin thickening. A 10.8 x 4.5 cm focus of left inferior axillary stranding and associated fluid is noted. There is no rim-enhancing fluid collection. There is no soft tissue gas. No additional sites of inflammation are identified on this examination. There is no consolidation to suggest pneumonia. Linear and ground glass densities within the lungs favor atelectasis. The central airways are patent. There is no pneumothorax or pleural effusion. Patchy steatosis is incidentally noted. IMPRESSION: 1. Left inferior axillary skin thickening and moderate subcutaneous stranding and fluid extends for approximately 10.8 x 4.5 cm. This is suggestive of an infectious process with cellulitis and phlegmon. No drainable fluid collection to suggest abscess at this time. 2. Multiple mildly enlarged left axillary lymph nodes which are likely reactive. Hospital Course (1) Sepsis: (2) Abscess of axilla, left: (3) Cellulitis of axilla, left: -given IV daptomycin and ceftriaxone in the ER, now continue IV antibiotics zosyn and daptomycin -WBC of 12.88 K on admission, febrile with temp 39.5 C on admission, negative lactic acid and procalcitonin -No history of hidradenitis suppurativa -CT axilla obtained - 1. Left inferior axillary skin thickening and moderate subcutaneous stranding and fluid extends for approximately 10.8 x 4.5 cm. This is suggestive of an infectious process with cellulitis and phlegmon. No drainable fluid collection to suggest abscess at this time. 2. Multiple mildly enlarged left axillary lymph nodes which are likely reactive. - Surgery consulted and I&D performed -cultures obtained in ED (copious pus per ED note), cultx positive for MSSA -pain control with Tylenol, oxycodone p.o. 01/19 - Yesterday I was able to express pus from the abscess, draining well however not today, and there is area that is quite firm - will discuss further w/surgery 01/20 - surgery was considering another I&D. However patient is improved, and they plan to follow-up in their surgical clinic on January 23. Patient is okay for discharge on p.o. antibiotics per discussion with surgical team. (4) CML (chronic myelocytic leukemia): - diagnosed in 2010 -Follows with [facility] in [place] with yearly labs - pt does not know name of physician, states that he moved to [place]. May need to re-establish with heme locally (5) GERD (gastroesophageal reflux disease): -continue omeprazole Total Time Total Time Spent Total Time Spent (In Minutes): 40 Discharge Plan Discharge Items Patient Disposition: Home - Self-Care Reason For Visit: ABSCESS Discharge Diagnosis: Axillary abscess Activity: Per Instructions section Non-emergency contact: Primary Care Provider and Surgeon Call non-emergency contact if: you have any medication questions and your symptoms worsen Follow-up/Referrals: Ana Moreno DO [Physician] - 01/23/23 10:30 am () PCP,NO [Primary Care Provider] - () Diet: Heart Healthy Addtl Attending Provider Instructions: Follow-up with primary care doctor, and surgeon. You are supposed to see your surgeon on 01/23/2023. Continue warm compresses to your underarm area as needed. Alternate on and off every 15 minutes as needed. Keep the area clean and dry. Continue antibiotic treatment, with Augmentin, as prescribed. It is recommended that while you are on an antibiotic, you take probiotic, to prevent any stomach upsets. For severe pain, you can take oxycodone, as needed, as prescribed. For less severe pain, continue taking Tylenol. Pending Studies at Discharge: Yes Studies:: Final blood culture results Stand-Alone Forms: My [facility], Smoking Cessation Medications and DC Order Prescriptions: New amoxicillin-pot clavulanate 875-125 mg tablet 1 tab PO BID 5 Days Qty: 10 0RF oxycodone 5 mg Tablet 5 mg PO Q6H PRN (Reason: pain) Qty: 7 0RF Advanced Probiotic 625 mg (10 billion cell) Capsule 2 cap PO DAILY 5 Days Qty: 10 0RF Continued ondansetron 4 mg tablet,disintegrating 4 mg PO Q6H PRN (Reason: nausea and vomiting) Qty: 10 0RF celecoxib 200 mg capsule 200 mg PO DAILY PRN (Reason: Pain) omeprazole 40 mg capsule,delayed release(DR/EC) 40 mg PO BID famotidine 20 mg tablet 20 mg PO BID gabapentin 800 mg tablet 800 mg PO TID Discharge Orders: Discharge Order (Routine); Ordered 01/20/23 Ordered By: Victor Hugo Govea Admission Data Admit Date/Time: 01/15/23 18:21 Attending Provider: Victor Hugo Govea Admit Provider: Jersey Rogers Primary Care Provider: PCP,NO Other Providers: Ana Moreno ; Jersey Rogers Other Interventions: Discharge Summary Assessment (RN) Last Done: 01/20/23 14:37
[2023-01-20] MEDS: DAPTOmycin 325 MG in SYRINGE 0 ML IV SCH (16:20)
== END 2023-01-20 17:17 | disposition home or self-care (01) | DRG 872 ==
LOC: ED 13:11 → SUATTDRO 18:21 → 3N 18:21

== ENCOUNTER 2024-02-28 20:20 | Inpatient (IN) ==
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
--- OUTSIDE RECORDS SUMMARY | 2024-02-28 20:24 | External Medical Summary | Continuity of Care Document ---
Author Name Unknown Organization [place] [id number] [place] [address] [phone] Encounter [facility] [id number] Date(s): 02/19/24 - 02/19/24 [facility] [address] [place] [address] [address] [place] [phone] Encounter Diagnosis Knee joint effusion(Discharge Diagnosis) - 02/19/24 Discharge Disposition: Home or Self Care Attending Physician: VERNON Vieira Kimberly A Allergies, Adverse Reactions, Alerts No Known Allergies Assessment and Plan Extracted from: Title:Office Visit Note Author:VERNON Vieira Kim berly A Date:02/19/24 1.Knee joint effusion STATUS:Acute, uncomplicated -Started on February 12 after walking more than her normal at the [facility]. -Pain was severe and in the posterior popliteal spacing -Pain improved spontaneously but then developed the lateral effusion -Did have pain and redness along the side of the knee but again that has also started to improve spontaneously -Denies any change or problem with ambulation, fevers, chills, SOB, CP or neuropathy DATA:Labs reviewed. GOAL:Maintain stability. PLAN:Cont current monitoring. Call with progress report in 1 week, If symptoms are not improving, will proceed with imaging. Call sooner with any worsening symptoms Time spent on pre-visit plannin min Face to face time spent w/ patient:15 min Time spent documenting pertinent clinical information into the EMR:4 min Total time: 23 min Immunizations Given and Recorded Vaccine Date Status Refusal Reason zoster vaccine, inactivated 09/11/23 Recorded Medications celecoxib 200 mg oral capsule Start: 01/08/24 7:03:00 EST, 1 cap, PO, Daily, Disp# 90 cap, Refills: 1, PRN: NEEDED FOR PAIN WITH FOOD, Pharmacy: [facility] [id number] Start Date: 01/08/24 Status: Ordered doxepin 50 mg oral capsule Start: 09/22/23 12:50:00 EST, 2 cap, PO, Daily Start Date: 09/22/23 Status: Ordered DULoxetine 60 mg oral delayed release capsule Start: 01/18/24 12:10:00 EDT, 1 cap, PO, Daily, Disp# 90 cap, Refills: 1, Pharmacy: [facility] [id number] Start Date: 01/18/24 Status: Ordered famotidine 20 mg oral tablet Start: 02/16/24 10:54:00 EDT, 1 tab, PO, bid, Disp# 180 tab, Refills: 2, Pharmacy: [facility] [id number] Start Date: 02/16/24 Status: Ordered fluconazole 150 mg oral tablet Start: 09/18/23 16:48:00 EST, 1 tab, PO, ONCE, Disp# 2 tab, Repeat in 3 days, [facility] Start Date: 09/18/23 Status: Ordered fluconazole 150 mg oral tablet Start: 09/04/23 9:04:00 EDT, 2 tab, PO, ONCE, Disp# 2 tab, [facility] Start Date: 09/04/23 Status: Ordered furosemide 40 mg oral tablet Start: 06/09/23 8:32:00 EDT, 2 tab, PO, Daily, Disp# 180 tab, Refills: 3, [id number] Start Date: 06/09/23 Status: Ordered gabapentin 800 mg oral tablet Start: 06/22/23 15:36:00 EDT, 1 tab, PO, tid, Disp# 90 tab, Refills: 3, [id number] Start Date: 06/22/23 Stop Date: 10/20/23 Status: Ordered lamoTRIgine 25 mg oral tablet Start: 09/22/23 12:53:00 EST, 1 tab, PO, Daily Start Date: 09/22/23 Status: Ordered omeprazole 40 mg oral delayed release capsule Start: 11/10/23 9:22:00 EST, 1 cap, PO, bid, Disp# 180 cap, Refills: 1, [id number] Start Date: 11/10/23 Status: Ordered ondansetron 4 mg oral tablet, disintegrating Start: 06/22/23 15:44:00 EDT, 1 tab, PO, tid, Disp# 30 tab, [id number] Start Date: 06/22/23 Stop Date: 07/02/23 Status: Ordered traZODone 100 mg oral tablet Start: 01/08/24 7:03:00 EST, 1 tab, PO, qhs, Disp# 90 tab, Refills: 1, Pharmacy: [id number] Start Date: 01/08/24 Status: Ordered Problem List Condition Confirmation Course [...] Dates Health Status Cl inical Service Informant Knee joint effusion Discharge Diagnosis 02/19/24 Procedures Procedure Date Related Diagnosis Body Site Status Colonoscopy 1 10/13/19 Completed 1Impression: Diverticulosis of large intestine without perforation or abscess without bleeding. Internal hemorrhoids. External hemorrhoid. Repeat in 10 years Vital Signs Most recent to oldest [Reference Range]: 1 Temperature [36.5-37.9 DegC] 36.8 DegC (02/19/24 11:29 AM) Heart Rate 84 bpm (02/19/24 11:29 AM) Respiratory Rate 20 br/min (02/19/24 11:29 AM) Blood Pressure 154/94mmHg (02/19/24 11:29 AM) Cuff Pulse Pressure 60 mmHg (02/19/24 11:29 AM) Social History Social History Type Response Smoking Status Never smoked cigaret faustino Sex FCM Outpt Note * VERNON Vieira, Aure Rose: PERFORM Event Display: FCM Outpt Note Authored Date: [id number] History of Present Illness Patient is a 63 yo female who presents today for acute knee pain and swelling Effusion (L) lateral knee: -Started on February 12 after walking more than her normal at the [employer]. -Pain was severe and in the posterior popliteal spacing -Pain improved spontaneously but then developed the lateral effusion -Did have pain and redness along the side of the knee but again that has also started to improve spontaneously -Denies any change or problem with ambulation, fevers, chills, SOB, CP or neuropathy Review of Systems ROS per HPI Physical Exam Vitals & Measurements T:36.8C HR:84(Monitored) RR:20 BP:154/94 SpO2:98% Gen Appearance: Well developed, well nourishedNAD. A&O x 3. HEENT: NCAT. EOMI. Neck supple. No thyromegaly palpable. Lymph: No submandibular, posterior or anterior cervical adenopathy. CV: RRR. No murmurs, rubs, or gallops. Lungs: CTAB. No wheezing, rales or rhonchi. Chest rises symmetrically. Abdomen: Scaphoid. No rashes.NABS x 4. Soft. Non-tender. No CVA tenderness bilaterally.No masses palpable. Ext: No LE edema. + 2 posterior tibial pulses. Mild lateral effusion of the left knee. Skin: [place]. Supple. Good turgor. Assessment/Plan 1.Knee joint effusion STATUS:Acute, uncomplicated -Started on February 12 after walking more than her normal at the [employer]. -Pain was severe and in the posterior popliteal spacing -Pain improved spontaneously but then developed the lateral effusion -Did have pain and redness along the side of the knee but again that has also started to improve spontaneously -Denies any change or problem with ambulation, fevers, chills, SOB, CP or neuropathy DATA:Labs reviewed. GOAL:Maintain stability. PLAN:Cont current monitoring. Call with progress report in 1 week, If symptoms are not improving, will proceed with imaging. Call sooner with any worsening symptoms Time spent on pre-visit plannin min Face to face time spent w/ patient:15 min Time spent documenting pertinent clinical information into the EMR:4 min Total time: 23 min Problem List/Past Medical History Ongoing Anxiety [...] myeloid leukemia) History of leukemia Procedure/Surgical History Colonoscopy| Service Date: 10/13/2019 Medications celecoxib(celecoxib 200 mg [...] due05/01/23and every 1year Due Adult COVID-19 Vaccination due02/19/24Unknown Frequency Adult Social Determinants of Health Screening due02/19/24Unknown Frequency Adult Tdap/Td Vaccine due02/19/24Unknown Frequency Breast Cancer Screening due02/19/24Unknown Frequency Cervical Cancer Screening due02/19/24Unknown Frequency Pneumococcal Vaccine Adults and Adolescents with Chronic Illness due02/19/24One-time only Shingles Vaccine due02/19/24One-time only Due In Future Body Mass Index not due until09/22/24and every 366day Satisfied(in the past 1 year) Satisfied Body Mass Index on09/22/23.Satisfied by LEIGH Gonzalez Courtney D Shingles Vaccine on09/11/23.Satisfied by MIGUELINA Narayan Kelly Electronic Signature on File Electronically Reviewed/Signed by: Aure Vieira PA-C Author Signature Dt/Tm:02/19/2024 11:57 AM Department of Family Medicine B[facility] "
--- OUTSIDE RECORDS SUMMARY | 2024-02-28 20:24 | External Medical Summary | Continuity of Care Document ---
Author Name Unknown Organization [place] [place] [address] [place] [address] [phone] Care Team Providers Care Meat Supervisor Name Role Phone Aure Vieira Primary Care Physician [phone] Encounter [facility] [id number] Date(s): 09/04/23 - 09/04/23 [facility] [address] [facility] [address] [address] [phone] Encounter Diagnosis Olecranon bursitis, left elbow(Discharge Diagnosis) - 09/04/23 Discharge Disposition: Home or Self Care Attending Physician: MD Qiana, Brooks Kay Allergies, Adverse Reactions, Alerts No Known Allergies Assessment and Plan Extracted from: Title:Left olecranon bursitis Author:MD Bradne , Callie Date:09/04/23 1.Olecranon bursitis, left elbow Acute;uncomplicated;not at goal -Exam findings consistent with septic bursitis/cellulitisof the left elbow. Givenvery acute onset (last night)of symptoms,low concern forosteomyelitis at this time. -Will initiateantibiotic therapy:Bactrim DStwice daily x10 days sent to pharmacy. -Instructed patient togo to the emergency room ifelbow swelling is not resolved or improvingafter 48 hours, as she will likely need incision and drainagefor acute resolution of abscess, targeted antibiotic therapy. Patient expressed understanding &is in agreement withthis plan. -Also sentone-time prescription of fluconazole, as patient reportedly hasa history of candidiasisaftertaking antibiotics. Medications Bactrim DS 800 mg-160 mg oral tablet Start: 09/04/23 8:59:00 EDT, 1 tab, PO, bid, Disp# 20 tab, X 10 day, Refills: 0, Stop: 09/14/23 8:59:00 EST, [id number] Start Date: 09/04/23 Stop Date: 09/14/23 Status: Ordered celecoxib 200 mg oral capsule Start: 04/28/23 10:07:00 EDT, See Instructions, Disp# 90 cap, Refills: 1, TAKE 1 CAPSULE BY MOUTH EVERY DAY NEEDED FOR PAIN WITH FOOD, [id number] Start Date: 04/28/23 Status: Ordered DULoxetine 60 mg oral delayed release capsule Start: 08/13/23 14:35:00 EDT, 1 cap, PO, Daily, Disp# 90 cap, Refills: 1, Pharmacy: [facility] [id number] Start Date: 08/13/23 Status: Ordered famotidine 20 mg oral tablet Start: 09/04/23 8:57:00 EDT, 1 tab, PO, bid, Disp# 180 tab, Refills: 0, Pharmacy: [facility] [id number] Start Date: 09/04/23 Status: Ordered fluconazole 150 mg oral tablet Start: 09/04/23 9:04:00 EDT, 2 tab, PO, ONCE, Disp# 2 tab, [id number] Start Date: 09/04/23 Status: Ordered furosemide 40 mg oral tablet Start: 06/09/23 8:32:00 EDT, 2 tab, PO, Daily, Disp# 180 tab, Refills: 3, [id number] Start Date: 06/09/23 Status: Ordered gabapentin 800 mg oral tablet Start: 06/22/23 15:36:00 EDT, 1 tab, PO, tid, Disp# 90 tab, Refills: 3, [id number] Start Date: 06/22/23 Stop Date: 10/20/23 Status: Ordered omeprazole 40 mg oral delayed release capsule Start: 04/20/23 11:47:00 EDT, See Instructions, Disp# 180 cap, Refills: 1, TAKE 1 CAPSULE BY MOUTH TWICE A DAY, Pharmacy: [facility] [id number] Start Date: 04/20/23 Status: Ordered ondansetron 4 mg oral tablet, disintegrating Start: 06/22/23 15:44:00 EDT, 1 tab, PO, tid, Disp# 30 tab, [id number] Start Date: 06/22/23 Stop Date: 07/02/23 Status: Ordered traZODone 100 mg oral tablet TAKE 2 TABLETS BY MOUTH AT BEDTIME (PER ) NEEDED FOR SLEEP Start Date: 06/22/23 Status: Ordered Mental Status 09/04/23 Barriers to Learning one year None evide nt Mandatory Health Literacy Documentation Yes Health Literacy Communication Barriers N ever Primary Language Finnish Problem List Condition Confirmation Course Effective Dates [...] Dates Health Status Cl inical Service Informant Olecranon bursitis, left elbow Discharge Diagnosis 09/04/23 Non-Specified Procedures Procedure Date Related Diagnosis Body Site Status Colonoscopy 1 10/13/19 Completed 1Impression: Diverticulosis of large intestine without perforation or abscess without bleeding. Internal hemorrhoids. External hemorrhoid. Repeat in 10 years Vital Signs Most recent to oldest [Reference Range]: 1 Patient Weight 107 kg (09/04/23 8:17 AM) Temperature [36.5-37.9 DegC] 37.0 DegC (09/04/23 8:17 AM) Heart Rate 76 bpm (09/04/23 8:17 AM) Respiratory Rate 18 br/min (09/04/23 8:17 AM) Blood Pressure 132/92mmHg (09/04/23 8:17 AM) Cuff Pulse Pressure 40 mmHg (09/04/23 8:17 AM) Social History Social History Type Response Smoking Status Never smoked cigaret faustino Sex FCM Outpt Note * MD Qiana, Brooks Kay: MODIFY MD Kiran Joseph P: MODIFY Event Display: FCM Outpt Note Authored Date: [id number] Chief Complaint has a swollen left elbow, states that she is prone to celluitis History of Present Illness [id number] year-oldwomanwho presents todaywith a chief complaint ofa swollen elbow. -Onset: since yesterday. Denies trauma. -Palliated by: N/A -Aggravated by: direct contact -Quality: constant dull ache -Radiation: none -ROS: nausea -New medications:No -Pertinent PMHx:Abscessof axilla in December 2022 (s/p I&Dby surgery, antibiotics);CML. [facility]. Review of Systems See HPI. Physical Exam Vitals & Measurements T:37.0C HR:76(Monitored) RR:18 BP:132/92 SpO2:98% WT:107kg WT:107.000kg(Dosing) PHQ2 Data(Data Documented on:09/04/2023 08:13) Emotional health assessment POSITIVE PHQ-9 Data(Data Documented on:09/04/2023 08:15) PHQ-9 Severity Score:9 Thoughts that you would be better off or of hurting yourself in some way?Not at All Depression Risk:Not Elevated General:no acute distress, speaking in full sentences Resp: good inspiratory effort, no labored breathing HEENT: conjunctivae appear clear, no audiblecongestion, no swelling noted face or lips Elbow: Well demarcated, fluctuant area oferythema at the posteriorelbow on the left. No ulcerationorpurulent discharge observed. Full ROM, though tenderness elicitedwith passive elbow flexion. Psych: euthymic affect, pleasantand interactive, logical thought process Assessment/Plan 1.Olecranon bursitis, left elbow Acute;uncomplicated;not at goal -Exam findings consistent with septic bursitis/cellulitisof the left elbow. Givenvery acute onset (last night)of symptoms,low concern forosteomyelitis at this time. -Will initiateantibiotic therapy:Bactrim DStwice daily x10 days sent to pharmacy. -Instructed patient togo to the emergency room ifelbow swelling is not resolved or improvingafter 48 hours, as she will likely need incision and drainagefor acute resolution of abscess, targeted antibiotic therapy. Patient expressed understanding &is in agreement withthis plan. -Also sentone-time prescription of fluconazole, as patient reportedly hasa history of candidiasisaftertaking antibiotics. Attestation I discussed the patient in detail regarding symptoms and findings today. I agree with the resident's note andplan to treat olecranon bursitis, which may be infected vs inflamed. Can try Bactrim, but if worsens, will need ED evaluation or Orthopedics consult. Katharine Kiran Problem List/Past Medical History Ongoing Anxiety Chronic myeloid leukemia Dyslipidemia Endometriosis GERD (gastroesophageal [...] mg oral capsule), See Instructions, 1 refills DULoxetine(DULoxetine 60 mg oral delayed release capsule), 1 cap, PO, Daily famotidine(famotidine 20 mg oral tablet), 1 tab, PO, bid fluconazole(fluconazole 150 mg oral tablet), 300 mg= 2 tab, PO, ONCE furosemide(furosemide 40 mg oral tablet), 80 mg= 2 tab, PO, Daily, 3 refills gabapentin(gabapentin 800 mg oral tablet), 800 mg= 1 tab, PO, tid, 3 refills omeprazole(omeprazole 40 mg oral delayed release capsule), See Instructions ondansetron(ondansetron 4 mg oral tablet, disintegrating), 4 mg= 1 tab, PO, tid sulfamethoxazole-trimethoprim(Bactrim DS 800 mg-160 mg oral tablet), 1 tab, PO, bid traZODone(traZODone 100 mg oral tablet) Allergies NKA Social History Smoking Status Never smoked cigarettes Family History Cancer: Father. Cancer of colon: Mother. Cardiovascular disease: Father. Hypertension: Father. Stroke: Father. Type II diabetes mellitus: Brother. Health Status Family Member(s) Recommendations Health Maintenance Pending(in the next year) OverDue Adult Influenza Vaccine due05/02/23and every 1year Due Adult COVID-19 Vaccination due09/04/23Unknown Frequency Adult Tdap/Td Vaccine due09/04/23Unknown Frequency Breast Cancer Screening due09/04/23Unknown Frequency Cervical Cancer Screening due09/04/23Unknown Frequency Pneumococcal Vaccine Adults and Adolescents with Chronic Illness due09/04/23One-time only Shingles Vaccine due09/04/23One-time only Due In Future Body Mass Index not due until09/03/24and every 1year Satisfied(in the past 1 year) Satisfied Body Mass Index on06/22/23.Satisfied by HAWA Richards Courtney Electronic Signature on File Electronically Reviewed/Signed by: Callie Feliciano MD Author Signature Dt/Tm:09/04/2023 09:51 AM Resident Department of Family Medicine Electronically Reviewed/Signed by: Brooks Kiran MD Cosigner Signature Dt/Tm: 09/04/2023 10:03AM Department of Family Medicine AO Patient Care team information Care Team Personnel Name: VERNON Vieira, Aure Rose Position: Physician Acid Painter - Family Med Member Role: Primary Care Provider Address: Address: [address] [address] [place]
[2024-02-28 21:16] LABS: Basophils # (auto) 0.07 K/uL (0.00-0.20); Basophils % (auto) 0.4 %; Eosinophils # (auto) 0.27 K/uL (0.00-0.50); Eosinophils % (auto) 1.6 %; Hematocrit (blood only) 43.6 % (37.0-47.0); Hemoglobin 14.4 g/dl (12.0-16.0); Immature Granulocytes # (auto) 0.13 K/uL (0.01-0.20); Immature Granulocytes % (auto) 0.7 %; Lymphocytes # (auto) 3.38 K/uL (1.20-3.40); Lymphocytes % (auto) 19.4 %; Mean Corpuscular Hemoglobin 30.1 pg (25.0-34.0); Mean Corpuscular Volume 91.2 fL (80.0-100.0); Mean Platelet Volume 11.8 fL (9.4-12.4); Monocytes # (auto) 1.59 K/uL (0.11-0.59); Monocytes % (auto) 9.1 %; Neutrophils # (auto) 11.95 K/uL (1.40-6.50); Neutrophils % (auto) 68.8 %; Platelet Count 235 K/uL (130-400); RDW Coefficient of Variation 13.2 % (11.5-14.5); RDW Standard Deviation 44.3 fL (36.4-46.3); Red Blood Count 4.78 M/uL (4.20-5.40); White Blood Count 17.39 K/ul (4.8-10.8)
[2024-02-28 21:55] LABS: Albumin Globulin Ratio 1.3 (0.9-2); Albumin Level 4.6 gm/dl (3.4-5.0); Bilirubin,Total 0.5 mg/dl (0.2-1.0); Calcium 9.9 mg/dl (8.6-10.3); Creatinine Clr Calc Pharmacy 75.4 ml/min; Est GFR (African American) 70.4 ml/min; Est GFR (Non-African American) 60.8 ml/min; Globulin 3.5 gm/dl (2.5-4.0); Potassium 4.3 mmol/L (3.5-5.1); Total Protein 8.1 gm/dl (6.0-8.3)
[2024-02-28] MEDS ORDERED: VANCOMYCIN CONSULT ACTIVE PRN (23:48)
[2024-02-29] MEDS: ONDANSETRON INJ 2 MG/ML 2 ML VIAL IV STA ×2 (00:18→20:48)
[2024-02-29] MEDS: SODIUM CHLORIDE 0.9% 1,000 ML IV ONE (00:18)
[2024-02-29] MEDS: cefTRIAXone SODIUM 2,000 MG/50 ML BAG IV STA (00:18)
[2024-02-29] MEDS: MoRPHine SULFATE 4 MG/ML 1 ML CARP\\VIAL IV STA (00:18)
[2024-02-29] MEDS: OPTIRAY 320 100ml IV ONE (01:10)
[2024-02-29] MEDS: VANCOMYCIN HCL 2,250 MG in SODIUM CHLORIDE 0.9% 500 ML IV ONE (01:17)
--- NOTE | 2024-02-29 01:20 | Emergency Department Note ---
History of Present Illness General Chief complaint: Infection Stated complaint: CELLULITUS ON CHIN/JAW Time Seen by Provider: 02/28/24 23:42 History of Present Illness Maximum Pain Intensity: 7 This 63-year-old female presents ER complaining of chin infection. Patient states it started out as a pustule and has gotten much worse. Patient denies fever, chills, cough, congestion. She states that is quite painful for her. Home Medications Medication Instructions Recorded Confirmed Type celecoxib 200 mg capsule 200 mg PO DAILY PRN Pain 01/15/23 02/29/24 History famotidine 20 mg tablet 20 mg PO BID 01/15/23 02/29/24 History gabapentin 800 mg tablet 800 mg PO TID 01/15/23 02/29/24 History omeprazole 40 mg capsule,delayed 40 mg PO BID 01/15/23 02/29/24 History release doxepin 100 mg capsule 100 mg PO HS PRN Sleep 02/29/24 02/29/24 History duloxetine 20 mg capsule,delayed 40 mg PO QAM 02/29/24 02/29/24 History release duloxetine 60 mg capsule,delayed 60 mg PO QAM 02/29/24 02/29/24 History release furosemide 40 mg tablet 40 - 80 mg PO DAILY PRN EDEMA PER 02/29/24 02/29/24 History PT hydroxyzine pamoate 25 mg capsule 25 mg PO Q6H PRN Anxiety 02/29/24 02/29/24 History lamotrigine 25 mg tablet 50 mg PO HS 02/29/24 02/29/24 History topiramate 25 mg tablet 25 mg PO BID 02/29/24 02/29/24 History trazodone 100 mg tablet 100 mg PO HS 02/29/24 02/29/24 History Allergies Allergy/AdvReac Type Severity Reaction Status Date / Time No Known Allergies Allergy Verified 02/29/24 01:02 Past Med/Surg History Medical History Heart attack Endometriosis GERD (gastroesophageal reflux disease) CML (chronic myelocytic leukemia) Surgical History History of delivery History of tonsillectomy History of cholecystectomy History of appendectomy Family History Mother Cancer Colorectal cancer Heart disease Hypertension Stroke Father Cancer Heart disease Hypertension Stroke Social History Smoking Status: Never smoker Second Hand Exposure: No; Do You Dip or Chew Tobacco: No; Hx Alcohol Use: Yes Alcohol type: beer Hx Substance Use: No Preferred Language: Venezuelan Communication Ability: Effective Director Export Required: No Beliefs That Will Affect Care: None marital status: Current Living Situation: Significant Other current occupational status: unemployed and disabled How many Children do You have: 3 How many Children do You have Comment: 1 Feels Safe at Home: Yes Diet: regular during the past year weight has: remained stable Assistive Devices: None Review of Systems A total of 10 systems reviewed and were otherwise negative Physical Exam Vital Signs Vital Signs - 24 hr 02/28/24 20:29 02/28/24 21:31 02/28/24 21:42 Temperature 36.8 C Temperature Source Oral Pulse Rate 114 H 97 H Pulse Rate [Apical] 94 H Pulse Rhythm [Apical] Pulse Strength [Apical] Respiratory Rate 18 19 Respiratory Effort / Characteristics Respiratory Depth Respiratory Pattern Blood Pressure 175/109 H Blood Pressure [Right Arm] 193/102 H Blood Pressure Mean 131 Blood Pressure Mean [Right Arm] 132 Blood Pressure Position Sitting Blood Pressure Position [Right Arm] Pulse Oximetry 96 95 Oxygen Delivery Method Room Air Room Air Sepsis Recent Fever Within 48 Hours No Sepsis New/Unexplained Change in Mental Status No Sepsis Action Taken by Nursing No Action Required 02/28/24 23:00 02/29/24 01:00 02/29/24 01:33 Temperature Temperature Source Pulse Rate 93 H Pulse Rate [Apical] 97 H 95 H Pulse Rhythm [Apical] Regular Pulse Strength [Apical] Normal Respiratory Rate 20 16 Respiratory Effort / Characteristics Non-Labored Spontaneous Respiratory Depth Normal Respiratory Pattern Regular Blood Pressure Blood Pressure [Right Arm] 138/99 173/121 H Blood Pressure Mean Blood Pressure Mean [Right Arm] 112 138 Blood Pressure Position Blood Pressure Position [Right Arm] Lying Pulse Oximetry 93 97 Oxygen Delivery Method Room Air Room Air Sepsis Recent Fever Within 48 Hours Sepsis New/Unexplained Change in Mental Status Sepsis Action Taken by Nursing VITALS: Vitals are noted on the nurse's note and reviewed by myself. Vital signs stable GENERAL: Pleasant patient, in no acute distress, nondiaphoretic, well-developed well-nourished. SKIN: Chin with extensive cellulitis with small open pimple that is draining and wound culture taken and sent, the rest of the skin was without rashes, erythema, edema, or bruising. There is no tenting of the skin. Capillary reflex less than 2 seconds. HEAD: Normocephalic atraumatic. EARS: External auditory canals clear EYES: Pupils equal round and reactive to light and accommodation. Conjunctivae without injection, sclerae without icterus. Extraocular movements intact. NOSE: Patent, no discharge. MOUTH: Mucous membranes moist. Pharynx without erythema or exudate. Uvula midline. Airway patent. Tongue does not deviate. NECK: Supple without nuchal rigidity. Shotty anterior cervical lymphadenopathy no thyromegaly. Cervical spine is nontender. No JVD. HEART: Regular rate and rhythm LUNGS: Clear to auscultation bilaterally without wheezes, rales or rhonchi. No retractions or accessory muscle use. ABDOMEN: Positive bowel sounds x 4. Normal tympanic percussion. Soft, nontender, without masses or organomegaly. Figueroa sign negative. No guarding or rebound tenderness. No CVA tenderness MUSCULOSKELETAL: No muscle atrophy, erythema, or edema noted. NEURO: Patient was alert and oriented to person place and time. Normal sensation to light and sharp touch. No focal neurological deficits. Course Administered Medications Discontinued Medications Vancomycin HCl 2,250 mg/ (Sodium Chloride) 545 mls @ 200 mls/hr IV NOW ONE Stop: 02/29/24 02:31 Last Admin: 02/29/24 01:17 Dose: 200 mls/hr Documented By: MACRINA Ceftriaxone Sodium (Rocephin) 2,000 mg in 50 mls @ 100 mls/hr IV NOW STA Stop: 02/29/24 00:17 Last Infusion: 02/29/24 01:13 Dose: Infused Documented By: Admin: 02/29/24 00:18 Dose: 100 mls/hr Documented By: DELMA Sodium Chloride (Nss) 1,000 mls @ 999 mls/hr IV .Q1H1M ONE Stop: 02/29/24 00:48 Last Infusion: 02/29/24 01:18 Dose: Infused Documented By: Admin: 02/29/24 00:18 Dose: 999 mls/hr Documented By: DELMA Ioversol (Optiray 320 100ml) 100 ml IV ONCE ONE Stop: 02/29/24 01:11 Last Admin: 02/29/24 01:10 Dose: 92 ml Documented By: PO Morphine Sulfate (Morphine Sulfate 4 Mg/Ml 1 Ml Carp\Vial) 4 mg IV NOW STA Stop: 02/28/24 23:49 Last Admin: 02/29/24 00:18 Dose: 4 mg Documented By: DELMA Ondansetron HCl (Ondansetron Inj 2 Mg/Ml 2 Ml Vial) 4 mg IV NOW STA Stop: 02/28/24 23:49 Last Admin: 02/29/24 00:18 Dose: 4 mg Documented By: DELMA Medical Decision Making Medical Records Attestation: I reviewed the patient's medical records. Home Medications Current Medication List: was personally reviewed by me Laboratory Data Attestation: I reviewed the patient's lab results. 02/28/24 20:57 02/28/24 20:57 Lab Results 02/28/24 Range/Units 20:57 WBC 17.39 H (4.8-10.8) K/ul RBC 4.78 (4.20-5.40) M/uL Hgb 14.4 (12.0-16.0) g/dl Hct 43.6 (37.0-47.0) % MCV 91.2 (80.0-100.0) fL MCH 30.1 (25.0-34.0) pg MCHC 33.0 (32.0-36.0) g/dL RDW Std Deviation 44.3 (36.4-46.3) fL RDW Coeff of Malena 13.2 (11.5-14.5) % Plt Count 235 (130-400) K/uL MPV 11.8 (9.4-12.4) fL Immature Gran % (Auto) 0.7 % Neut % (Auto) 68.8 % Lymph % (Auto) 19.4 % Mcpherson % (Auto) 9.1 % Eos % (Auto) 1.6 % Baso % (Auto) 0.4 % Neut # (Auto) 11.95 H (1.40-6.50) K/uL Lymph # (Auto) 3.38 (1.20-3.40) K/uL Mcpherson # (Auto) 1.59 H (0.11-0.59) K/uL Eos # (Auto) 0.27 (0.00-0.50) K/uL Baso # (Auto) 0.07 (0.00-0.20) K/uL Immature Gran # (Auto) 0.13 (0.01-0.20) K/uL Sodium 137 (136-145) mmol/L Potassium 4.3 (3.5-5.1) mmol/L Chloride 100 (98-107) mmol/L Carbon Dioxide 27 (21-32) mmol/L Anion Gap 10 (3-11) BUN 17 (6-23) mg/dl Creatinine 1.00 (0.6-1.2) mg/dl Est Cr Clr Drug Dosing 75.4 ml/min Est GFR ( Amer) 70.4 ml/min Est GFR (Non-Af Amer) 60.8 ml/min BUN/Creatinine Ratio 17.0 (10-20) Glucose 114 H (70-99(Fasting)) mg/dl Calcium 9.9 (8.6-10.3) mg/dl Total Bilirubin 0.5 (0.2-1.0) mg/dl AST 24 (13-39) U/L ALT 30 (7-52) U/L Alkaline Phosphatase 89 (34-104) U/L Total Protein 8.1 (6.0-8.3) gm/dl Albumin 4.6 (3.4-5.0) gm/dl Globulin 3.5 (2.5-4.0) gm/dl Albumin/Globulin Ratio 1.3 (0.9-2) Imaging Data Attestation: I personally reviewed and interpreted this imaging study as follows: Radiologist's Impression: Soft Tissue Neck CT 02/28/24 23:48 CR Exam(s): CT NECK With Contrast IV Amt: 92 ML OPTIRAY 320 EXAM: CT Neck With Intravenous Contrast CLINICAL HISTORY: Reason for exam: chin infection. TECHNIQUE: Axial computed tomography images of the neck with intravenous contrast. CTDI is 20.33 mGy and DLP is 586.2 mGy-cm. Automated exposure control was utilized for the study. A dose lowering technique was utilized adhering to the principles of ALARA. CONTRAST: Patient received 92 ML OPTIRAY 320 of IV contrast COMPARISON: No relevant prior studies available. FINDINGS: Oropharynx: Unremarkable. No significant tonsillar enlargement. No peritonsillar abscess. Hypopharynx: Unremarkable. Larynx: Unremarkable. Normal epiglottis. Trachea: Unremarkable. Retropharyngeal space: Unremarkable. Submandibular/parotid glands: Unremarkable. Glands are normal in size. Thyroid: Unremarkable. No enlarged or calcified nodules. Bones/joints: No acute fracture. Dental caries with periapical lucencies about tooth #6, 7, 8, 11, and 20 concern for 4 periapical abscess. Soft tissues: There is a periosteal abscess about the right anterior mandible measuring 33.8 x 18.9 x 10.1 mm with moderate inflammation of the surrounding soft tissues. There is fluid in the proximal and midesophagus. Vasculature: No acute findings. Lymph nodes: Unremarkable. No lymphadenopathy. Lung apices: Unremarkable as visualized. IMPRESSION: There is a periosteal abscess about the right anterior mandible measuring 33.8 x 19.8 x 10.1 mm. Communications: Verify Receipt Electronically signed by: Audrey Hancock MD 02/29/24 03:09 AM [facility] Narrative Prior records reviewed and summarized as above. Triage Nursing notes reviewed. Additional history obtained from family. The patient's history was concerning for swelling and redness of the skin. Differential diagnosis: Etiologies such as cellulitis, abscess, MRSA infection, DVT, necrotizing fasciitis, dermatitis, drug eruption, as well as others were entertained.. Physical examination: The physical examination was consistent with cellulitis ER treatment provided: Rocephin, vancomycin On reassessment the patient felt better. Diagnostics interpreted by me: The labs Independently Interpreted by myself revealed leukocytosis, wound culture taken and sent Blood cultures pending Imaging studies: CT as above Consultation: A consultation was placed with the hospitalist. The case was discussed and diagnostics were reviewed. The patient was evaluated in the ER for further treatment. This appears to be extensive facial cellulitis and abscess . Patient was started on antibiotics. Medicine was consulted and case was discussed. Patient be admitted to the medical service. By the evaluation outlined above emergent etiologies such as necrotizing fasciitis, DVT, as well as others were deemed relatively unlikely. The pt informed about the findings as listed above. All questions were answered and pleased with the treatment. The chart was completed utilizing [employer] voice recognition software. Grammatical errors, random word insertions, pronoun errors, and incomplete sentences are an occassional consequence of this system due to software limitations, ambient noise, and hardware issues. Any formal questions or concerns about the content, text, or information contained within the body of this dictation should be directly addressed to the physician psych assistant for clarification. Impression & Plan Abscess of face, Cellulitis of face Discharge Plan Visit Data Chief Complaint: Infection Stated Complaint: CELLULITUS ON CHIN/JAW ED Provider: Carie Rubio ED Midlevel Provider: Aure Cueto Discharge Problem: Abscess of face, Cellulitis of face Patient Disposition: Admitted As Inpatient Condition: Good Forms Stand Alone Forms: [facility] Prescriptions Prescriptions: No Action celecoxib 200 mg capsule 200 mg PO DAILY PRN (Reason: Pain) omeprazole 40 mg capsule,delayed release(DR/EC) 40 mg PO BID famotidine 20 mg tablet 20 mg PO BID gabapentin 800 mg tablet 800 mg PO TID furosemide 40 mg tablet 40 - 80 mg PO DAILY PRN (Reason: EDEMA PER PT) topiramate 25 mg tablet 25 mg PO BID lamotrigine 25 mg tablet 50 mg PO HS trazodone 100 mg tablet 100 mg PO HS doxepin 100 mg capsule 100 mg PO HS PRN (Reason: Sleep) hydroxyzine pamoate 25 mg capsule 25 mg PO Q6H PRN (Reason: Anxiety) duloxetine 20 mg capsule,delayed release(DR/EC) 40 mg PO QAM Rx Instructions: TOTAL DOSE 100 MG--TAKES WITH 60 MG CAP. duloxetine 60 mg capsule,delayed release(DR/EC) 60 mg PO QAM Rx Instructions: TOTAL DOSE 100 MG--TAKES WITH 2-20 MG CAP Referrals Referrals: Brittney Yip LSW [Primary Care Provider] -
--- NOTE | 2024-02-29 03:10 | CT Scan Report ---
Exam(s): CT NECK With Contrast IV Amt: 92 ML OPTIRAY 320 EXAM: CT Neck With Intravenous Contrast CLINICAL HISTORY: Reason for exam: chin infection. TECHNIQUE: Axial computed tomography images of the neck with intravenous contrast. CTDI is 20.33 mGy and DLP is 586.2 mGy-cm. Automated exposure control was utilized for the study. A dose lowering technique was utilized adhering to the principles of ALARA. CONTRAST: Patient received 92 ML OPTIRAY 320 of IV contrast COMPARISON: No relevant prior studies available. FINDINGS: Oropharynx: Unremarkable. No significant tonsillar enlargement. No peritonsillar abscess. Hypopharynx: Unremarkable. Larynx: Unremarkable. Normal epiglottis. Trachea: Unremarkable. Retropharyngeal space: Unremarkable. Submandibular/parotid glands: Unremarkable. Glands are normal in size. Thyroid: Unremarkable. No enlarged or calcified nodules. Bones/joints: No acute fracture. Dental caries with periapical lucencies about tooth #6, 7, 8, 11, and 20 concern for 4 periapical abscess. Soft tissues: There is a periosteal abscess about the right anterior mandible measuring 33.8 x 18.9 x 10.1 mm with moderate inflammation of the surrounding soft tissues. There is fluid in the proximal and midesophagus. Vasculature: No acute findings. Lymph nodes: Unremarkable. No lymphadenopathy. Lung apices: Unremarkable as visualized. IMPRESSION: There is a periosteal abscess about the right anterior mandible measuring 33.8 x 19.8 x 10.1 mm. Communications: Verify Receipt Electronically signed by: Audrey Hancock MD 02/29/24 03:09 AM
--- NOTE | 2024-02-29 05:44 | History & Physical Report ---
Date of Service February 29, 2024 Assessment & Plan (1) Abscess of face: Plan: - started on ceftriaxone/vancomycin in the ED - given that she has a history of CML, so is immunocompromised will plan to continue with cefepime and vancomycin - oral maxillofacial surgery consulted, NPO pending evaluation - Pain regimen with Tylenol 1000mg q8 prn, Morphine 2mg prn pain 6-8, 4mg pain 9-10 - s/p 1L NSS in ED, will continue maintenance fluids LR @80ml/hr while NPO - wound and blood cultures pending (2) CML (chronic myelocytic leukemia): Plan: - noted history, diagnosed 2010 - was following for yearly labs while in [place] prior to moving here (3) GERD (gastroesophageal reflux disease): Plan: - continue famotidine, omeprazole (4) Neuropathy: Plan: - continue gapapentin (5) Anxiety: Plan: - follows with [facility] for med management - continue doxepin prn, duloxetine, hydroxyzine prn, lamotrigine, topiramate, trazodone qHS Plan Diet: NPO pending oral maxillofacial surgery evaluation VTE Prophylaxis: SCD, hold pending pending surgery evaluation Code: full History of Present Illness Primary Care Provider: JEROMY Barfield 63 year old female with a past medical history of CML, GERD, Anxiety, depression , neuropathy presenting with concern for facial abscess. States that it started as a small red spot in her chin on Thursday. Has gradually gotten larger and become more painful. Notes that she was admitted 12/2022 with abscess in axilla that required I&D and IV antibiotics. Notes subjective fever and chills at home. Limited PO intake secondary to pain. ED course significant for: CT with periosteal abscess about the right anterior mandible measuring 33.8 x 19.8 x 10.1 mm. Leukocytosis= 17.39. Started on vancomycin and s/p 2g ceftriaxone. Allergies Allergy/AdvReac Type Severity Reaction Status Date / Time No Known Allergies Allergy Verified 02/29/24 01:02 Home Medications Medication Instructions Recorded Confirmed Type celecoxib 200 mg capsule 200 mg PO DAILY PRN Pain 01/15/23 02/29/24 History famotidine 20 mg tablet 20 mg PO BID 01/15/23 02/29/24 History gabapentin 800 mg tablet 800 mg PO TID 01/15/23 02/29/24 History omeprazole 40 mg capsule,delayed 40 mg PO BID 01/15/23 02/29/24 History release doxepin 100 mg capsule 100 mg PO HS PRN Sleep 02/29/24 02/29/24 History duloxetine 20 mg capsule,delayed 40 mg PO QAM 02/29/24 02/29/24 History release duloxetine 60 mg capsule,delayed 60 mg PO QAM 02/29/24 02/29/24 History release furosemide 40 mg tablet 40 - 80 mg PO DAILY PRN EDEMA PER 02/29/24 02/29/24 History PT hydroxyzine pamoate 25 mg capsule 25 mg PO Q6H PRN Anxiety 02/29/24 02/29/24 History lamotrigine 25 mg tablet 50 mg PO HS 02/29/24 02/29/24 History topiramate 25 mg tablet 25 mg PO BID 02/29/24 02/29/24 History trazodone 100 mg tablet 100 mg PO HS 02/29/24 02/29/24 History Past Med/Surg History Medical History Heart attack Endometriosis GERD (gastroesophageal reflux disease) CML (chronic myelocytic leukemia) Surgical History History of delivery History of tonsillectomy History of cholecystectomy History of appendectomy Family History Mother Cancer Colorectal cancer Heart disease Hypertension Stroke Father Cancer Heart disease Hypertension Stroke Social History Smoking Status: Never smoker Second Hand Exposure: No; Do You Dip or Chew Tobacco: No; Hx Alcohol Use: No Hx Substance Use: No Preferred Language: Qatari Communication Ability: Effective Ship'S Officer Required: No Beliefs That Will Affect Care: None marital status: Current Living Situation: Alone current occupational status: unemployed and disabled How many Children do You have: 3 How many Children do You have Comment: 1 Feels Safe at Home: Yes Safety Concerns: Feels Safe At This Time Diet: regular during the past year weight has: remained stable Assistive Devices: Cane Review of Systems Review of Systems: As per above Physical Exam Physical Exam: Constitutional: well-appearing, no acute distress HEENT: NCAT, no conjunctival injection CV: regular rhythm, no murmur appreciated, extremities well-perfused, trace LE edema Resp: CTABL, no wheezes/rales/rhonchi appreciated, no increased work of breathing GI: soft, nondistended, nontender MSK: no gross deformities appreciated Skin: warm, dry, no rash appreciated- chin with open pimple and large area of surrounding erythema Neuro: alert, oriented, no focal neurologic deficit appreciated Results & Data Results & Data Vital Signs (Past 12 Hours) Vital Signs Temp Pulse Pulse Resp BP BP Pulse Ox 02/29/24 03:00 93 H 16 164/112 H 94 02/29/24 01:33 93 H 02/29/24 01:00 95 H 16 173/121 H 97 02/28/24 23:00 97 H 20 138/99 93 02/28/24 21:42 94 H 19 193/102 H 95 02/28/24 21:31 97 H 02/28/24 20:29 36.8 C 114 H 18 175/109 H 96 O2 Del Method 02/29/24 03:00 Room Air 02/29/24 01:33 02/29/24 01:00 Room Air 02/28/24 23:00 Room Air 02/28/24 21:42 Room Air 02/28/24 21:31 02/28/24 20:29 Room Air Supervising Physician Co-Signing Physician Notes Attending addendum: I have physically seen this patient, have supervised the medical residents activities, and agree with the H&P unless as otherwise noted. Assessment and Plan: Facial abscess/periosteal abscess right anterior mandible- N.p.o. 33.8 x 19.8 x 10.1 mm in size Vancomycin IV and cefepime IV until cultures return Consulted Dr. Ma Status post 1 L normal saline in the ED Maintenance IV fluids LR at 80 mL/h Acetaminophen 1 g IV every 8 hours as needed for mild pain or fever Morphine sulfate 2 mg IV every 4 hours as needed for moderate pain Morphine sulfate 4 mg IV every 4 hours as needed for severe pain CML Follows with yearly labs in [place] Relatively immunocompromised state, so aggressive IV antibiotics until cultures returned as above GERD- Changed to IV NPO Resident Activity Tracking Resident Involvement: Resident Care Provided Care Provided: Adult [facility] Medicine
[2024-02-29] MEDS: MoRPHine SULFATE 2 MG/ML CARP IV STA (05:49)
[2024-02-29] MEDS ORDERED: hydrOXYzine HCl 25 MG TAB PO PRN (08:28)
[2024-02-29] MEDS ORDERED: CEFEPIME 2,000 MG in SYRINGE 0 ML IV SCH (08:28)
[2024-02-29] MEDS ORDERED: MoRPHine SULFATE 2 MG/ML CARP IV PRN (08:28)
[2024-02-29] MEDS ORDERED: DOXEPIN HCL 50 MG CAPSULE PO PRN (08:28)
[2024-02-29] MEDS ORDERED: VANCOMYCIN CONSULT ACTIVE PRN (08:28)
[2024-02-29] MEDS ORDERED: MoRPHine SULFATE 4 MG/ML 1 ML CARP\\VIAL IV PRN (08:28)
[2024-02-29] MEDS ORDERED: LACTATED RINGER'S 1,000 ML IV SCH (08:28)
[2024-02-29 09:05] LABS: Basophils # (auto) 0.04 K/uL (0.00-0.20); Basophils % (auto) 0.3 %; Eosinophils # (auto) 0.34 K/uL (0.00-0.50); Eosinophils % (auto) 2.3 %; Hematocrit (blood only) 41.7 % (37.0-47.0); Hemoglobin 13.4 g/dl (12.0-16.0); Immature Granulocytes % (auto) 0.7 %; Lymphocytes # (auto) 2.27 K/uL (1.20-3.40); Lymphocytes % (auto) 15.2 %; Mean Corpuscular Hemoglobin 29.5 pg (25.0-34.0); Mean Corpuscular Hgb Conc 32.1 g/dL (32.0-36.0); Mean Corpuscular Volume 91.9 fL (80.0-100.0); Mean Platelet Volume 11.6 fL (9.4-12.4); Monocytes # (auto) 1.24 K/uL (0.11-0.59); Monocytes % (auto) 8.3 %; Neutrophils # (auto) 10.95 K/uL (1.40-6.50); Neutrophils % (auto) 73.2 %; Platelet Count 215 K/uL (130-400); RDW Coefficient of Variation 13.5 % (11.5-14.5); RDW Standard Deviation 45.6 fL (36.4-46.3); Red Blood Count 4.54 M/uL (4.20-5.40); White Blood Count 14.94 K/ul (4.8-10.8)
[2024-02-29 09:22] LABS: BUN Creatinine Ratio 14.1 (10-20); Calcium 8.7 mg/dl (8.6-10.3); Creatinine Clr Calc Pharmacy 104.2 ml/min; Est GFR (African American) 95.1 ml/min; Est GFR (Non-African American) 82.1 ml/min; Potassium 3.8 mmol/L (3.5-5.1)
[2024-02-29] MEDS: ACETAMINOPHEN 500 MG TAB PO PRN (09:28)
[2024-02-29] MEDS: SODIUM CHLORIDE 0.9% 1,000 ML IV SCH (09:28)
[2024-02-29] MEDS: FAMOTIDINE 20 MG TAB PO SCH (09:29)
[2024-02-29] MEDS: PANTOprazole 40 MG TAB PO SCH (09:29)
[2024-02-29] MEDS: DULoxetine HCL 20 MG CAP PO SCH (09:29)
[2024-02-29] MEDS: DULoxetine HCL 60 MG CAP PO SCH (09:29)
[2024-02-29] MEDS: GABAPENTIN 800 MG TAB PO SCH (09:29)
[2024-02-29] MEDS: TOPIRAMATE 25 MG TAB PO SCH (09:29)
[2024-02-29] MEDS: VANCOMYCIN HCL 1,000 MG in SODIUM CHLORIDE 0.9% 250 ML IV SCH (11:23)
--- NOTE | 2024-02-29 11:38 | Pharmacy Report ---
Pharmacy PK ABX Note - Date of Service February 29, 2024 - Assessment and Plan Assessment 63 year old F receiving vancomycin/ceftriaxone for treatment of facial cellulitis. Patient has a PMH including CML. Previous culture data show MSSA from axilla. Current blood and facial cultures pending. Plan Vancomycin * Loading dose: 2250 mg IV x 1 * Maintenance dose: 1500 mg IV every 12 hours * Regimen is predicted to achieve target AUC/DANNY of 400-600 mg/L.hr * Random level scheduled for 03/02 @1000 Pharmacy will continue to follow and will adjust dose/frequency as necessary. Thank you. Pharmacy has transitioned to AUC monitoring for vancomycin. AUC/DANNY is the preferred PK/PD target and is associated with decreased risk of nephrotoxicity compared to traditional trough targets.
--- NOTE | 2024-02-29 12:18 | Hospitalist Progress Note ---
Date of Service February 29, 2024 Assessment & Plan (1) Abscess of face: Plan: Involving the chin area. The patient states this started as a pimple and then progressed. She is now on Rocephin and vancomycin. CT scan confirms the presence of a abscess collection. OMFS consultation is pending. She remains n.p.o. in the event incision and drainage will be done yet today, February 28. She is on IV fluids. (2) CML (chronic myelocytic leukemia): Plan: By history. No intervention necessary at this time. Serial labs (3) GERD (gastroesophageal reflux disease): Plan: Stable. Continue current medical manage (4) Anxiety: Plan: Stable. Continue current medical management Plan Hopefully home later this week on oral antibiotic Admission and Anticipated Discharge Date Admission Date: February 29, 2024 Subjective Alert and oriented. No distress but she is having some discomfort involving the facial cellulitis and abscess present on the chin. She is now on Rocephin and vancomycin. OMFS consultation remains pending. CT scan done on admission reveals an abscess in the chin area. She states this started with a pimple. White count is 17,000. She is on IV fluids and remains n.p.o. for the time being. Review of Systems 2 Review of Systems: Constitutional-no fever or chills ENT-no blurred vision, no double vision, no epistaxis, no sore throat. Tender swollen erythematous chin area Respiratory-no cough, no wheezing, no shortness of breath Cardiac-no palpitations, no chest pain, no syncope GI-no nausea, vomiting, diarrhea, melena, hematochezia -no urinary retention, no urinary incontinence, no dysuria, no hematuria Musculoskeletal-no joint pain, no muscle tenderness Skin-no bruising, no rashes, no pruritus Neuro-no isolated weakness, no paresthesia, no weakness Psych-no depression, no anxiety Physical Exam 2 Physical Exam: General-alert and oriented x3, no fever, no chills. Morbidly obese HEENT-head atraumatic and normocephalic, pupils equal and reactive to light, extraocular muscles intact. Tender swollen erythematous chin area Neck-no lymphadenopathy or thyromegaly, trachea midline Chest-clear to auscultation. No rales, wheezing or rhonchi Cardiac-regular rate and rhythm, normal S1 and S2 Abdomen-normal bowel sounds, no hepatosplenomegaly Extremities-no cyanosis, clubbing, or edema Neuro-cranial nerves II through XII intact, motor and sensory function within normal limits, strength symmetrical, no focal deficits Psych-normal affect, normal mood Results & Data Results & Data Vital Signs (Past 12 Hours) Vital Signs Temp Pulse Pulse Resp BP BP Pulse Ox 02/29/24 11:39 36.8 C 86 20 140/86 93 02/29/24 08:00 36.9 C 92 H 20 165/101 H 94 02/29/24 08:00 94 H 02/29/24 07:08 94 H 22 161/95 H 96 02/29/24 06:00 36.8 C 90 16 185/119 H 94 02/29/24 05:30 92 H 18 215/132 H 95 02/29/24 05:20 93 H 02/29/24 03:00 93 H 16 164/112 H 94 02/29/24 01:33 93 H 02/29/24 01:00 95 H 16 173/121 H 97 O2 Del Method O2 Flow Rate 02/29/24 11:39 Room Air 02/29/24 08:00 Room Air 02/29/24 08:00 02/29/24 07:08 Nasal Cannula 2 02/29/24 06:00 Nasal Cannula 2 02/29/24 05:30 Room Air 02/29/24 05:20 02/29/24 03:00 Room Air 02/29/24 01:33 02/29/24 01:00 Room Air Laboratory Results 02/29/24 08:48 02/29/24 08:48 PG Care Time/CCT Total # of Minutes Spent Total Time Spent with Patient: Total time spent is greater than 50% in coordination of care (as documented) at patient's floor/unit and/or counseling patient: Coding Level of Care Code 49393 SUB INP/OBS CARE 3/50MIN Diagnoses Abscess of face L02.01 CML (chronic myelocytic leukemia) C92.10 GERD (gastroesophageal reflux disease) K21.9 Anxiety F41.9
[2024-02-29] MEDS: MoRPHine SULFATE 2 MG/ML CARP IV PRN (13:09)
--- NOTE | 2024-02-29 15:13 | Anesthesiology Consultation ---
Date of Service February 29, 2024 Assessment & Plan (1) Encounter for pre-operative examination: Chart Review Chart Review: Acceptable Risk for Surgery and Patient NOT seen in Pre Admission Testing Consults Requested none History Surgery Operation Date: 02/29/24 10:50 Proposed Procedures p Submantal Chin Abscess Incision and Drainage - Flex Ma, DMD Height/Weight Height: 5 ft 9 in Weight: 118.5 kg Allergies Allergy/AdvReac Type Severity Reaction Status Date / Time No Known Allergies Allergy Verified 02/29/24 01:02 Medications Home Medications Medication Instructions Recorded Confirmed Last Taken celecoxib 200 mg capsule 200 mg PO DAILY PRN Pain 01/15/23 02/29/24 01/14/23 famotidine 20 mg tablet 20 mg PO BID 01/15/23 02/29/24 02/28/24 gabapentin 800 mg tablet 800 mg PO TID 01/15/23 02/29/24 02/28/24 omeprazole 40 mg capsule,delayed 40 mg PO BID 01/15/23 02/29/24 02/28/24 release doxepin 100 mg capsule 100 mg PO HS PRN Sleep 02/29/24 02/29/24 Unknown duloxetine 20 mg capsule,delayed 40 mg PO QAM 02/29/24 02/29/24 02/28/24 release duloxetine 60 mg capsule,delayed 60 mg PO QAM 02/29/24 02/29/24 02/28/24 release furosemide 40 mg tablet 40 - 80 mg PO DAILY PRN EDEMA PER 02/29/24 02/29/24 Unknown PT hydroxyzine pamoate 25 mg capsule 25 mg PO Q6H PRN Anxiety 02/29/24 02/29/24 Unknown lamotrigine 25 mg tablet 50 mg PO HS 02/29/24 02/29/24 02/28/24 topiramate 25 mg tablet 25 mg PO BID 02/29/24 02/29/24 02/28/24 trazodone 100 mg tablet 100 mg PO HS 02/29/24 02/29/24 02/28/24 Active Medications Generic Name Dose Route Start Last Admin Trade Name Freq PRN Reason Stop Dose Admin Acetaminophen 1,000 mg 02/29/24 08:28 02/29/24 09:28 Acetaminophen 500 Mg Tab PO 03/30/24 08:27 1,000 mg Q8H PRN Administration pain Duloxetine HCl 40 mg 02/29/24 09:00 02/29/24 09:29 Duloxetine Hcl 20 Mg Cap PO 03/30/24 08:59 40 mg QAM GORDO Administration Duloxetine HCl 60 mg 02/29/24 09:00 02/29/24 09:29 Duloxetine Hcl 60 Mg Cap PO 03/30/24 08:59 60 mg QAM GORDO Administration Famotidine 20 mg 02/29/24 09:00 02/29/24 09:29 Famotidine 20 Mg Tab PO 03/30/24 08:59 20 mg BID GORDO Administration Gabapentin 800 mg 02/29/24 09:00 02/29/24 13:09 Gabapentin 800 Mg Tab PO 03/30/24 08:59 800 mg TID GORDO Administration Sodium Chloride 1,000 mls @ 80 mls/hr 02/29/24 08:45 02/29/24 09:28 Nss IV 03/30/24 08:44 80 mls/hr .[id number] GORDO Administration Vancomycin HCl 1,000 mg/ 270 mls @ 200 mls/hr 02/29/24 12:00 02/29/24 13:06 Sodium Chloride IV 02/29/24 16:00 Infused Q12H GORDO Infusion Protocol Morphine Sulfate 2 mg 02/29/24 10:52 02/29/24 13:09 Morphine Sulfate 2 Mg/Ml Carp IV 03/14/24 08:27 2 mg Q3H PRN Administration Pain Pantoprazole Sodium 40 mg 02/29/24 09:00 02/29/24 09:29 Pantoprazole 40 Mg Tab PO 03/30/24 08:59 40 mg BID GORDO Administration Topiramate 25 mg 02/29/24 09:00 02/29/24 09:29 Topiramate 25 Mg Tab PO 03/30/24 08:59 25 mg BID GORDO Administration Past Medical History Medical History Heart attack Endometriosis GERD (gastroesophageal reflux disease) CML (chronic myelocytic leukemia) Past Family History Family History Mother Cancer Colorectal cancer Heart disease Hypertension Stroke Father Cancer Heart disease Hypertension Stroke Past Surgical History Surgical History History of delivery History of tonsillectomy History of cholecystectomy History of appendectomy Social History Smoking Status: Never smoker Do You Dip or Chew Tobacco: No Hx Alcohol Use: No Alcohol type: beer alcohol intake frequency: holidays/special occasions only Hx Substance Use: No substance use type: does not use Physical Exam Vital Signs Last Vital Signs Temp 98.2 F 02/29/24 11:39 Pulse 86 02/29/24 11:39 Resp 20 02/29/24 11:39 BP 140/86 02/29/24 11:39 Pulse Ox 93 02/29/24 11:39 O2 Del Method Room Air 02/29/24 11:39 O2 Flow Rate 2 02/29/24 07:08 Testing Laboratory Results 02/29/24 08:48 02/29/24 08:48 02/28/24 23:46 Gram Stain - Final Face
[2024-02-29] MEDS ORDERED: ATROPINE SULFATE 0.1 MG/ML 10ML SYR IV PRN (15:15)
[2024-02-29] MEDS ORDERED: ePHEDrine sulfate 50 MG/ML AMP IV PRN (15:15)
[2024-02-29] MEDS ORDERED: ONDANSETRON INJ 2 MG/ML 2 ML VIAL IV PRN (15:15)
[2024-02-29] MEDS ORDERED: fentaNYL citrate PF 100 MCG/2 ML VIAL ONE ×2 (15:16→17:21)
[2024-02-29] MEDS ORDERED: ROCURONIUM BROMIDE 10 MG/ML 5 ML VIAL IV ONE (15:16)
[2024-02-29] MEDS ORDERED: MIDAZOLAM HCL 1 MG/ML 2ML VIAL ONE (15:16)
[2024-02-29] MEDS ORDERED: LIDOCAINE 2% 2 ML VIAL/AMP(20MG/ML) INFIL ONE (15:16)
[2024-02-29] MEDS ORDERED: ONDANSETRON INJ 2 MG/ML 2 ML VIAL ONE (15:16)
[2024-02-29] MEDS ORDERED: PROPOFOL IV EMULSION 10 MG/ML 20 ML VIAL IV ONE (15:16)
--- NOTE | 2024-02-29 16:29 | Oral/Maxillofacial Consult ---
Date of Consultation February 29, 2024 History of Present Illness Attending Physician: Dionicio Gandhi MD History of Present Illness What started as a small pimple on her chin developed into a major submental and chin infection which must be drained PRISCA. I reviewed the PMH and she is cleared to undergo the I&D this afternoon She is NPO Plan I&D PRISCA in the OR. H and P information that I reviewed (1) Abscess of face: - started on ceftriaxone/vancomycin in the ED - given that she has a history of CML, so is immunocompromised will plan to continue with cefepime and vancomycin - oral maxillofacial surgery consulted, NPO pending evaluation - Pain regimen with Tylenol 1000mg q8 prn, Morphine 2mg prn pain 6-8, 4mg pain 9-10 - s/p 1L NSS in ED, will continue maintenance fluids LR @80ml/hr while NPO - wound and blood cultures pending (2) CML (chronic myelocytic leukemia): - noted history, diagnosed 2010 - was following for yearly labs while in [place] prior to moving here (3) GERD (gastroesophageal reflux disease): - continue famotidine, omeprazole (4) Neuropathy: - continue gapapentin (5) Anxiety: - follows with [place] [facility] for med management - continue doxepin prn, duloxetine, hydroxyzine prn, lamotrigine, topiramate, trazodone qHS Plan Diet: NPO pending oral maxillofacial surgery evaluation VTE Prophylaxis: SCD, hold pending pending surgery evaluation Code: full Risks discussed: Bleeding,Pain,swelling,infection, delayed healing, nerve injury to face,lips,tongue,chin area which could be permanent (rare). TMJ, jaw stiffness, ear pain (referred). Sinus problems like fistula or infection. Scaring and need for further drainage Home care reviewed: Follow up care with Dr Ma. diet=as tolerated Discussed activity level, driving/work while on Rx pain Meds. Heat, massage and need to have the drain removed Surgery to be set up today in the OR Allergies Allergy/AdvReac Type Severity Reaction Status Date / Time No Known Allergies Allergy Verified 02/29/24 01:02 Home Medications Medication Instructions Recorded Confirmed Type celecoxib 200 mg capsule 200 mg PO DAILY PRN Pain 01/15/23 02/29/24 History famotidine 20 mg tablet 20 mg PO BID 01/15/23 02/29/24 History gabapentin 800 mg tablet 800 mg PO TID 01/15/23 02/29/24 History omeprazole 40 mg capsule,delayed 40 mg PO BID 01/15/23 02/29/24 History release doxepin 100 mg capsule 100 mg PO HS PRN Sleep 02/29/24 02/29/24 History duloxetine 20 mg capsule,delayed 40 mg PO QAM 02/29/24 02/29/24 History release duloxetine 60 mg capsule,delayed 60 mg PO QAM 02/29/24 02/29/24 History release furosemide 40 mg tablet 40 - 80 mg PO DAILY PRN EDEMA PER 02/29/24 02/29/24 History PT hydroxyzine pamoate 25 mg capsule 25 mg PO Q6H PRN Anxiety 02/29/24 02/29/24 History lamotrigine 25 mg tablet 50 mg PO HS 02/29/24 02/29/24 History topiramate 25 mg tablet 25 mg PO BID 02/29/24 02/29/24 History trazodone 100 mg tablet 100 mg PO HS 02/29/24 02/29/24 History Patient History Medical History Heart attack Endometriosis GERD (gastroesophageal reflux disease) CML (chronic myelocytic leukemia) Surgical History History of delivery History of tonsillectomy History of cholecystectomy History of appendectomy Family History Mother Cancer Colorectal cancer Heart disease Hypertension Stroke Father Cancer Heart disease Hypertension Stroke Social History Smoking Status: Never smoker Second Hand Exposure: No; Do You Dip or Chew Tobacco: No; Hx Alcohol Use: No Hx Substance Use: No Preferred Language: Vietnamese Communication Ability: Effective Lunchroom Operator Required: No Beliefs That Will Affect Care: None marital status: Current Living Situation: Alone current occupational status: unemployed and disabled How many Children do You have: 3 How many Children do You have Comment: 1 Feels Safe at Home: Yes Safety Concerns: Feels Safe At This Time Diet: regular during the past year weight has: remained stable Assistive Devices: Cane Results & Data Vital Signs (Past 12 Hours) Vital Signs Temp Pulse Pulse Pulse Resp BP BP 02/29/24 16:00 94 H 02/29/24 15:15 36.9 C 82 18 189/120 H 02/29/24 11:39 36.8 C 86 20 140/86 02/29/24 08:00 36.9 C 92 H 20 165/101 H 02/29/24 08:00 94 H 02/29/24 07:08 94 H 22 161/95 H 02/29/24 06:00 36.8 C 90 16 185/119 H 02/29/24 05:30 92 H 18 215/132 H 02/29/24 05:20 93 H Pulse Ox O2 Del Method O2 Flow Rate 02/29/24 16:00 02/29/24 15:15 92 Room Air 02/29/24 11:39 93 Room Air 02/29/24 08:00 94 Room Air 02/29/24 08:00 02/29/24 07:08 96 Nasal Cannula 2 02/29/24 06:00 94 Nasal Cannula 2 02/29/24 05:30 95 Room Air 02/29/24 05:20 PG Care Time/CCT Total # of Minutes Spent Total Time Spent with Patient: Total time spent is greater than 50% in coordination of care (as documented) at patient's floor/unit and/or counseling patient: Coding Level of Care Code 27402 Inpt Consult Level 1
--- NOTE | 2024-02-29 16:50 | History & Physical Bridge Note ---
Date of Service February 29, 2024 History & Physical Bridge Note I have examined the patient, reviewed the History & Physical and in the interval since the performance of the History & Physical I have noted the following changes of clinical significance: no changes noted. Reviewed the surgery I&D Consent signed--OK for the procedure
[2024-02-29] MEDS ORDERED: SUGAMMADEX SODIUM 200 MG/2 ML VIAL IV ONE (17:22)
[2024-02-29] MEDS ORDERED: HYDROmorphone INJ 1 MG/ML SYRINGE ONE (17:25)
[2024-02-29] MEDS: LIDOCAINE 1%/EPINEPHRINE 1:100,000 20 ML VIAL ONE (17:31)
[2024-02-29] MEDS ORDERED: LABETALOL HCL IV 5 MG/ML 20ML IV ONE (17:34)
--- NOTE | 2024-02-29 17:48 | Post Operative Brief Note ---
PG Immediate Post Op with CF Date of Surgery February 29, 2024 Pre & Post Diagnosis Operation Date: 02/29/24 10:50 Pre-Op Diagnosis: Abscess of face Chin Post-Op Diagnosis: Abscess of face chin I identified the patient and participated in the time-out.: Yes Procedure Operation Date: 02/29/24 10:50 Actual Procedures p Submantal Chin Abscess Incision and Drainage(Not Applicable) - Flex Ma, AIME Surgeon Flex Ma, AIME Securities Lending Trader none Estimated Blood Loss 4 Findings Consistent with Post-Op Diagnosis very indurated chin abscess with pus draining from small central area of the chin, exdending lateral to the mental nerve area bilateral Fluids none Specimens Specimen Description: 1. Chin abscess culture Drains [place] Drain Anesthesia Type General Complications none Disposition Accompanied Patient To Recovery: Yes
[2024-02-29] MEDS: fentaNYL citrate PF 100 MCG/2 ML VIAL IV PRN (18:15)
--- NOTE | 2024-02-29 18:28 | Anesthesiology Progress Note ---
Date of Service February 29, 2024 Anesthesia Post Procedure Vital Signs Vital Signs: Temp Pulse Pulse Pulse Resp BP BP 02/29/24 18:20 76 20 197/103 H 02/29/24 18:10 78 20 194/118 H 02/29/24 18:00 73 15 130/107 H 02/29/24 17:50 71 19 140/98 02/29/24 17:46 36.0 C L 68 13 121/91 02/29/24 16:00 94 H 02/29/24 15:15 36.9 C 82 18 189/120 H 02/29/24 11:39 36.8 C 86 20 140/86 02/29/24 08:00 36.9 C 92 H 20 165/101 H 02/29/24 08:00 94 H 02/29/24 07:08 94 H 22 161/95 H 02/29/24 06:00 36.8 C 90 16 185/119 H 02/29/24 05:30 92 H 18 215/132 H 02/29/24 05:20 93 H 02/29/24 03:00 93 H 16 164/112 H 02/29/24 01:33 93 H 02/29/24 01:00 95 H 16 173/121 H 02/28/24 23:00 97 H 20 138/99 02/28/24 21:42 94 H 19 193/102 H 02/28/24 21:31 97 H 02/28/24 20:29 36.8 C 114 H 18 175/109 H Pulse Ox O2 Del Method O2 Flow Rate 02/29/24 18:20 94 Nasal Cannula 3 02/29/24 18:10 94 Nasal Cannula 3 02/29/24 18:00 94 Oxymask 10 02/29/24 17:50 95 Oxymask 10 02/29/24 17:46 95 Oxymask 10 02/29/24 16:00 02/29/24 15:15 92 Room Air 02/29/24 11:39 93 Room Air 02/29/24 08:00 94 Room Air 02/29/24 08:00 02/29/24 07:08 96 Nasal Cannula 2 02/29/24 06:00 94 Nasal Cannula 2 02/29/24 05:30 95 Room Air 02/29/24 05:20 02/29/24 03:00 94 Room Air 02/29/24 01:33 04/29/24 01:00 97 Room Air 02/28/24 23:00 93 Room Air 02/28/24 21:42 95 Room Air 02/28/24 21:31 02/28/24 20:29 96 Room Air Pain Intensity Other: Pain Intensity: 6 Medial Face: Pain Intensity: 6 Lower Other: Pain Intensity: 5 Transfer of Care Handoff Completed per policy Notes Mental Status: alert / awake / arousable and participated in evaluation Patient Amnestic to Procedure: Yes Nausea / Vomiting: adequately controlled Pain: adequately controlled Airway Patency, RR, SpO2: stable & adequate BP & HR: stable & adequate Hydration State: stable & adequate Anesthetic Complications: no major complications apparent and Pt Satisfied with anesthetic care Notes: Patient hypertensive and treating with IV labetalol. Otherwise pain is controlled, denies nausea and no complaints.
[2024-02-29] MEDS: LABETALOL HCL IV 5 MG/ML 20ML IV PRN (18:31)
[2024-02-29] MEDS: LABETALOL HCL IV 5 MG/ML 20ML IV ONE (18:38)
--- NOTE | 2024-02-29 19:19 | Billing Data ---
Date of Service February 29, 2024 Coding Level of Care Code 82529 INT INP/OBS CARE
[2024-02-29] MEDS: lamoTRIgine 25 MG TAB PO SCH (21:06)
[2024-02-29] MEDS: traZODone HCL 100 MG TAB PO SCH (21:07)
[2024-03-01] MEDS: cefTRIAXone SODIUM 2,000 MG/50 ML BAG IV SCH (00:29)
[2024-03-01] MEDS: VANCOMYCIN HCL 1,500 MG in SODIUM CHLORIDE 0.9% 500 ML IV SCH (01:03)
[2024-03-01] MEDS: ONDANSETRON INJ 2 MG/ML 2 ML VIAL IV STA (04:34)
[2024-03-01 06:40] LABS: Basophils # (auto) 0.06 K/uL (0.00-0.20); Basophils % (auto) 0.4 %; Eosinophils # (auto) 0.31 K/uL (0.00-0.50); Hematocrit (blood only) 39.9 % (37.0-47.0); Hemoglobin 12.8 g/dl (12.0-16.0); Immature Granulocytes % (auto) 0.6 %; Lymphocytes # (auto) 1.37 K/uL (1.20-3.40); Lymphocytes % (auto) 8.9 %; Mean Corpuscular Hemoglobin 29.9 pg (25.0-34.0); Mean Corpuscular Hgb Conc 32.1 g/dL (32.0-36.0); Mean Corpuscular Volume 93.2 fL (80.0-100.0); Monocytes # (auto) 1.16 K/uL (0.11-0.59); Monocytes % (auto) 7.5 %; Neutrophils % (auto) 80.6 %; Platelet Count 190 K/uL (130-400); RDW Coefficient of Variation 13.7 % (11.5-14.5); RDW Standard Deviation 47.2 fL (36.4-46.3); Red Blood Count 4.28 M/uL (4.20-5.40)
[2024-03-01 06:43] LABS: BUN Creatinine Ratio 13.6 (10-20); Calcium 8.3 mg/dl (8.6-10.3); Creatinine Clr Calc Pharmacy 138.3 ml/min; Est GFR (African American) 114.7 ml/min; Est GFR (Non-African American) 98.9 ml/min; Potassium 3.9 mmol/L (3.5-5.1)
[2024-03-01] MEDS: METOPROLOL TARTRATE 25 MG TAB PO SCH (10:09)
--- NOTE | 2024-03-01 13:35 | Hospitalist Progress Note ---
Date of Service March 01, 2024 Assessment & Plan (1) Abscess of face: Plan: Involving the chin area. The patient states this started as a pimple and then progressed. CT scan confirms the presence of a abscess collection. OMFS consultation appreciated. She underwent incision and drainage yesterday, February 28. Staph isolated in the cultures. She remains on vancomycin. Rocephin has been discontinued. Diet has been advanced and IV fluids discontinued. (2) CML (chronic myelocytic leukemia): Plan: By history. No intervention necessary at this time. Serial labs (3) GERD (gastroesophageal reflux disease): Plan: Stable. Continue current medical manage (4) Anxiety: Plan: Stable. Continue current medical management Plan Hopefully home within the next day or 2 on an oral antibiotic Admission and Anticipated Discharge Date Admission Date: February 29, 2024 Subjective Alert and oriented. She is able to open her mouth and swallow much better. Diet has been advanced. Staph isolated in the cultures from the chin incision and drainage. She will remain on vancomycin for now. Rocephin has been discontinued. Metoprolol started for heart rate and blood pressure control. Review of Systems 2 Review of Systems: Constitutional-no fever or chills ENT-no blurred vision, no double vision, no epistaxis, no sore throat. Chin area is heavily bandaged Respiratory-no cough, no wheezing, no shortness of breath Cardiac-no palpitations, no chest pain, no syncope GI-no nausea, vomiting, diarrhea, melena, hematochezia -no urinary retention, no urinary incontinence, no dysuria, no hematuria Musculoskeletal-no joint pain, no muscle tenderness Skin-no bruising, no rashes, no pruritus Neuro-no isolated weakness, no paresthesia, no weakness Psych-no depression, no anxiety Physical Exam 2 Physical Exam: General-alert and oriented x3, no fever, no chills. Morbidly obese HEENT-head atraumatic and normocephalic, pupils equal and reactive to light, extraocular muscles intact. Chin area is heavily bandaged Neck-no lymphadenopathy or thyromegaly, trachea midline Chest-clear to auscultation. No rales, wheezing or rhonchi Cardiac-regular rate and rhythm, normal S1 and S2 Abdomen-normal bowel sounds, no hepatosplenomegaly Extremities-no cyanosis, clubbing, or edema Neuro-cranial nerves II through XII intact, motor and sensory function within normal limits, strength symmetrical, no focal deficits Psych-normal affect, normal mood Results & Data Results & Data Vital Signs (Past 12 Hours) Vital Signs Temp Pulse Pulse Pulse Resp BP BP 03/01/24 10:57 36.9 C 72 18 137/85 03/01/24 10:26 03/01/24 08:04 37.0 C 93 H 20 178/110 H 156/102 H 03/01/24 07:04 64 03/01/24 03:56 36.5 C 88 16 161/103 H Pulse Ox O2 Del Method O2 Flow Rate 03/01/24 10:57 95 Room Air 03/01/24 10:26 Room Air 03/01/24 08:04 96 Nasal Cannula 2 03/01/24 07:04 03/01/24 03:56 99 Nasal Cannula 2 Laboratory Results 03/01/24 05:58 03/01/24 05:58 PG Care Time/CCT Total # of Minutes Spent Total Time Spent with Patient: Total time spent is greater than 50% in coordination of care (as documented) at patient's floor/unit and/or counseling patient: Coding Level of Care Code 94530 SUB INP/OBS CARE 3/50MIN Diagnoses Abscess of face L02.01 CML (chronic myelocytic leukemia) C92.10 GERD (gastroesophageal reflux disease) K21.9 Anxiety F41.9
--- NOTE | 2024-03-01 14:57 | Oral/Maxillofacial Progress Nt ---
Date of Service March 01, 2024 Assessment & Plan Admission and Anticipated Discharge Date Admission Date: February 29, 2024 Subjective Post Op infection evaluation 24 hours The infected area is progressing well. Still painful but a lot less swollen No further pus drainage is noted. Drain may be removed tomorrow AM Cultures were reviewed as expected staph swelling--I discussed need for heat, massage, and oral antibiotics. Infection is responding very well to the antibiotics and the I&D I requested that the patient continue with massage, heat and wound care. At this time the area has responded well to treatment. She will be OK for D/C tomorrow after I see her in the morning. I would suggest an oral antibiotic, pain meds, heat, massage and follow up with my office Results & Data Vital Signs (Past 12 Hours) Vital Signs Temp Pulse Pulse Pulse Resp BP BP 03/01/24 10:57 36.9 C 72 18 137/85 03/01/24 10:26 03/01/24 08:04 37.0 C 93 H 20 178/110 H 156/102 H 03/01/24 07:04 64 03/01/24 03:56 36.5 C 88 16 161/103 H Pulse Ox O2 Del Method O2 Flow Rate 03/01/24 10:57 95 Room Air 03/01/24 10:26 Room Air 03/01/24 08:04 96 Nasal Cannula 2 03/01/24 07:04 03/01/24 03:56 99 Nasal Cannula 2 PG Care Time/CCT Total # of Minutes Spent Total Time Spent with Patient: Total time spent is greater than 50% in coordination of care (as documented) at patient's floor/unit and/or counseling patient: Coding Level of Care Code None
[2024-03-02 09:55] LABS: Basophils # (auto) 0.05 K/uL (0.00-0.20); Basophils % (auto) 0.6 %; Eosinophils # (auto) 0.52 K/uL (0.00-0.50); Eosinophils % (auto) 6.5 %; Hematocrit (blood only) 38.4 % (37.0-47.0); Hemoglobin 12.1 g/dl (12.0-16.0); Immature Granulocytes # (auto) 0.04 K/uL (0.01-0.20); Immature Granulocytes % (auto) 0.5 %; Lymphocytes # (auto) 1.91 K/uL (1.20-3.40); Lymphocytes % (auto) 23.8 %; Mean Corpuscular Hemoglobin 29.7 pg (25.0-34.0); Mean Corpuscular Hgb Conc 31.5 g/dL (32.0-36.0); Mean Corpuscular Volume 94.3 fL (80.0-100.0); Monocytes # (auto) 0.26 K/uL (0.11-0.59); Monocytes % (auto) 3.2 %; Neutrophils # (auto) 5.26 K/uL (1.40-6.50); Neutrophils % (auto) 65.4 %; Platelet Count 201 K/uL (130-400); RDW Coefficient of Variation 13.6 % (11.5-14.5); RDW Standard Deviation 46.7 fL (36.4-46.3); Red Blood Count 4.07 M/uL (4.20-5.40); White Blood Count 8.04 K/ul (4.8-10.8)
[2024-03-02 10:37] LABS: BUN Creatinine Ratio 15.5 (10-20); Creatinine Clr Calc Pharmacy 96.3 ml/min; Est GFR (African American) 86.9 ml/min; Potassium 3.9 mmol/L (3.5-5.1)
[2024-03-02] MEDS: SULFAMETHOXAZOLE/TRIMETHOPRIM DS 800/160MG TAB PO SCH (10:41)
--- NOTE | 2024-03-02 11:30 | Discharge Summary ---
Date of Service March 02, 2024 Admission HPI Per Admitting Provider 63 year old female with a past medical history of CML, GERD, Anxiety, depression , neuropathy presenting with concern for facial abscess. States that it started as a small red spot in her chin on Thursday. Has gradually gotten larger and become more painful. Notes that she was admitted 12/2022 with abscess in axilla that required I&D and IV antibiotics. Notes subjective fever and chills at home. Limited PO intake secondary to pain. ED course significant for: CT with periosteal abscess about the right anterior mandible measuring 33.8 x 19.8 x 10.1 mm. Leukocytosis= 17.39. Started on vancomycin and s/p 2g ceftriaxone. Principal Diagnosis Chin abscess with facial cellulitis, essential hypertension Discharge Exam General-alert and oriented x3, no fever, no chills. Morbidly obese HEENT-head atraumatic and normocephalic, pupils equal and reactive to light, extraocular muscles intact. Chin area is ecchymotic and heavily bandaged Neck-no lymphadenopathy or thyromegaly, trachea midline Chest-clear to auscultation. No rales, wheezing or rhonchi Cardiac-regular rate and rhythm, normal S1 and S2 Abdomen-normal bowel sounds, no hepatosplenomegaly Extremities-no cyanosis, clubbing, or edema Neuro-cranial nerves II through XII intact, motor and sensory function within normal limits, strength symmetrical, no focal deficits Psych-normal affect, normal mood Discharge Data Allergies Allergy/AdvReac Type Severity Reaction Status Date / Time No Known Allergies Allergy Verified 02/29/24 01:02 Consultations 02/29/24 05:07 ED Decision to Admit Stat 02/29/24 05:35 Consult Oromaxillofacial Surgery Routine Procedures Performed Operation Date: 02/29/24 10:50 Actual Procedures p Submantal Chin Abscess Incision and Drainage(Not Applicable) - Flex Ma DMD Ordered Studies 02/28/24 23:48 CT neck soft tissues [CT soft tissue neck w con] Stat Hospital Course (1) Abscess of face: Involving the chin area. The patient states this started as a pimple and then progressed. CT scan confirms the presence of a abscess collection. OMFS consultation appreciated. She underwent incision and drainage procedure on February 28. Staph isolated in the cultures is MSSA. She was treated while hospitalized with vancomycin. She will be discharged home on Bactrim for 10 more days. She will follow-up with Dr. Ma in the office (2) CML (chronic myelocytic leukemia): By history. No intervention necessary at this time. Serial labs (3) Essential hypertension: She was started on metoprolol yesterday, March 01. Heart rate and blood pressure are much better controlled now. She will continue at discharge. (4) GERD (gastroesophageal reflux disease): Stable. Continue current medical manage (5) Anxiety: Stable. Continue current medical management Plan Home today, March 02, on Bactrim DS and metoprolol. Total Time Total Time Spent Total Time Spent (In Minutes): 45-minute Discharge Plan Discharge Items Patient Disposition: Home - Self-Care Reason For Visit: FACIAL CELLULITUS Discharge Diagnosis: Facial cellulitis with chin abscess, essential hypertension Condition on Discharge: Good Non-emergency contact: Primary Care Provider Call non-emergency contact if: you have any medication questions and your symptoms worsen Follow-up/Referrals: Brittney Yip LSW [Primary Care Provider] - Diet: Regular and Heart Healthy Addtl Attending Provider Instructions: Take Bactrim antibiotic for 10 more days. Take metoprolol as directed for blood pressure control. Follow-up with dental surgeon, Dr. Flex Ma, in the office within 1 week. Pending Studies at Discharge: No Stand-Alone Forms: [facility], Smoking Cessation Medications and DC Order Prescriptions: New sulfamethoxazole-trimethoprim [Bactrim DS] 800-160 mg Tablet 1 tab PO BID Qty: 20 0RF metoprolol tartrate 25 mg Tablet 25 mg PO BID Qty: 60 0RF Continued celecoxib 200 mg capsule 200 mg PO DAILY PRN (Reason: Pain) omeprazole 40 mg capsule,delayed release(DR/EC) 40 mg PO BID famotidine 20 mg tablet 20 mg PO BID gabapentin 800 mg tablet 800 mg PO TID furosemide 40 mg tablet 40 - 80 mg PO DAILY PRN (Reason: EDEMA PER PT) topiramate 25 mg tablet 25 mg PO BID lamotrigine 25 mg tablet 50 mg PO HS trazodone 100 mg tablet 100 mg PO HS doxepin 100 mg capsule 100 mg PO HS PRN (Reason: Sleep) hydroxyzine pamoate 25 mg capsule 25 mg PO Q6H PRN (Reason: Anxiety) duloxetine 20 mg capsule,delayed release(DR/EC) 40 mg PO QAM Rx Instructions: TOTAL DOSE 100 MG--TAKES WITH 60 MG CAP. duloxetine 60 mg capsule,delayed release(DR/EC) 60 mg PO QAM Rx Instructions: TOTAL DOSE 100 MG--TAKES WITH 2-20 MG CAP Discharge Orders: Discharge Order (Routine); Ordered 03/02/24 Ordered By: Osmel Tellez Admission Data Admit Date/Time: 02/29/24 05:20 Attending Provider: Dionicio Gandhi Admit Provider: Mahogany Vazquez Primary Care Provider: Brittney Yip Other Providers: Dionicio Gandhi; Flex Ma Coding Level of Care Code 64263 INP/OBS DISCH >30 MIN Diagnoses Abscess of face L02.01 CML (chronic myelocytic leukemia) C92.10 Essential hypertension I10 GERD (gastroesophageal reflux disease) K21.9 Anxiety F41.9
--- NOTE | 2024-03-02 12:42 | Oral/Maxillofacial Progress Nt ---
Date of Service March 02, 2024 Assessment & Plan Admission and Anticipated Discharge Date Admission Date: February 29, 2024 Subjective Post Op infection evaluation 48 hours The infected area resolving very well Swelling is going down very well No further drainage is noted. Drain was removed. Cultures were reviewed. Infection has responded very well to the antibiotics,heat and the I and D. I requested that the patient continue with massage, heat and wound care. At this time the area is well healed and responded well to treatment, OK for discharge today Antibiotics as per medicine RTC March 10 at 10:30 am Results & Data Vital Signs (Past 12 Hours) Vital Signs Temp Pulse Pulse Resp BP BP Pulse Ox 03/02/24 11:29 37.1 C 64 16 98/62 L 95 03/02/24 09:30 03/02/24 07:50 67 03/02/24 07:16 37.0 C 71 16 156/69 H 98 03/02/24 03:40 36.8 C 82 16 92/61 L 96 O2 Del Method 03/02/24 11:29 Room Air 03/02/24 09:30 Room Air 03/02/24 07:50 03/02/24 07:16 Room Air 03/02/24 03:40 Room Air PG Care Time/CCT Total # of Minutes Spent Total Time Spent with Patient: Total time spent is greater than 50% in coordination of care (as documented) at patient's floor/unit and/or counseling patient: Coding Level of Care Code None
--- NOTE | 2024-03-12 17:45 | Operative Report ---
PG Post Operative Report Pre & Post Diagnosis Operation Date: 02/29/24 10:50 Pre-Op Diagnosis: Abscess of face chin and submental area Post-Op Diagnosis: Abscess of face chin and submental area I identified the patient and participated in the time-out.: Yes Procedure Operation Date: 02/29/24 10:50 Actual Procedures p Submantal Chin Abscess Incision and Drainage(Not Applicable) - Flex Ma DMD Surgeon Flex Ma DMD [employer] none Estimated Blood Loss 4 Findings Consistent with Post-Op Diagnosis Specimens C&S chin infection Drains [place] / Anesthesia Type General Complications none Disposition Accompanied Patient To Recovery: Yes Indications large abscess of the chin and submental area Description of Procedure Actual Procedures p Incision and Drainage Chin and Submental Abscess; - Flex Ma DMD CPT 94446 Extraoral I&D abscess of the submental(CHIN) area Once cleared for surgery general anesthesia was achieved, the eyes were protected by the anesthesia dept criteria. A time out was take for patient ID, antibiotics, equipment and position verification once all agreed the procedure began. Local anesthesia using Marcaine with a vasoconstrictor ( 1.8 ml per site) given into the chin area away from the infected tissue. A throat pack was placed after the oral cavity was irrigated with saline. Once a surgical level of anesthesia was obtained and the local anesthesia was given time for the blocks the surgery was started. I turned my attention to the infection which was located in the chin and submental area. Incision and Drainage CPT 81805 Extraoral I&D abscess of the submental(CHIN) area Extraoral I&D abscess of the submental(CHIN) area Using a 15 blade an extraoral incision was made in a skin fold under the swollen chin and submental area. Once the incision was made a lot of pus extruded from the site. This drainage was cultured for anaerobic and aerobic bacteria. A curved hemostat was carefully placed into the infected submental and chin spaces. Some further drainage was now allowed to escape. I palpated the chin and submental area and no further drainage was expressed. The area was irrigated with at least 100 ml of NS solution. I now placed a Mela drain from the submental space into the chin, 2 drains were placed one going to the right and the other to the left. The drains were sutured into place with a 3-0 nylon suture. I pressure dressing was placed. I inspected the sites to insure all bleeding was controlled. I removed the throat pack and suctioned the throat. All instrument and sponge count was correct. The patient was allowed to awake from the anesthesia. Once full awake the anesthesia tube was removed and the patient was taken to the recovery room with all vital sign stable. The patient tolerated the surgery very well. I will follow the patient in my office, Rx and instructions will be given upon discharge. I attest to the content of the Intraoperative Record and any orders documented therein. Any exceptions are noted below.
== END 2024-03-02 13:58 | disposition home or self-care (01) | DRG 603 ==
LOC: SUATTDRO → ED 20:20 → 1E 02-29 05:20 → 2N 02-29 21:22 → 2W 03-01 16:41

== ENCOUNTER 2024-08-16 15:07 | Inpatient (IN) ==
[2024-08-16 15:49] LABS: Basophils # (auto) 0.05 K/uL (0.00-0.20); Basophils % (auto) 0.9 %; Eosinophils # (auto) 0.34 K/uL (0.00-0.50); Eosinophils % (auto) 5.9 %; Hemoglobin 13.2 g/dl (12.0-16.0); Immature Granulocytes # (auto) 0.02 K/uL (0.01-0.20); Immature Granulocytes % (auto) 0.3 %; Lymphocytes # (auto) 2.41 K/uL (1.20-3.40); Lymphocytes % (auto) 41.8 %; Mean Corpuscular Hemoglobin 29.6 pg (25.0-34.0); Mean Corpuscular Hgb Conc 32.2 g/dL (32.0-36.0); Mean Corpuscular Volume 91.9 fL (80.0-100.0); Mean Platelet Volume 12.2 fL (9.4-12.4); Monocytes # (auto) 0.45 K/uL (0.11-0.59); Monocytes % (auto) 7.8 %; Neutrophils % (auto) 43.3 %; Platelet Count 185 K/uL (130-400); RDW Coefficient of Variation 14.9 % (11.5-14.5); RDW Standard Deviation 50.2 fL (36.4-46.3); Red Blood Count 4.46 M/uL (4.20-5.40); White Blood Count 5.77 K/ul (4.8-10.8)
--- NOTE | 2024-08-16 15:52 | XRay Report ---
SINGLE VIEW CHEST CLINICAL HISTORY: Atypical chest pain. FINDINGS: A PA chest radiograph is compared to chest x-ray and chest CT dated 01/15/2023. The cardiome diastinal silhouette is unremarkable. The lungs and pleural spaces are clear. No pneumothorax is seen . The bony thorax is grossly intact. Cholecystectomy clips are noted in the right upper quadrant. IMPRESSION: No active disease in the chest. ACT 112: Negative or not required by law. Electronically signed by: Sterling Terrazas M.D. 08/16/2024 3:51 PM
[2024-08-16 16:07] LABS: Albumin Globulin Ratio 1.3 (0.9-2); BUN Creatinine Ratio 20.5 (10-20); Bilirubin,Total 0.3 mg/dl (0.2-1.0); Calcium 9.2 mg/dl (8.6-10.3); Creatinine Clr Calc Pharmacy 88.9 ml/min; Globulin 3.2 gm/dl (2.5-4.0); Potassium 3.9 mmol/L (3.5-5.1); Total Protein 7.2 gm/dl (6.0-8.3)
[2024-08-16 16:13] LABS: Troponin I High Sensitivity 4.3 pg/ml (0-14)
[2024-08-16 16:16] LABS: Partial Thromboplastin Time 28 Seconds (21-31); Prothrombin Time 10.9 Seconds (9.0-12.0)
[2024-08-16] MEDS: OPTIRAY 320 125ml IV ONE (16:18)
--- NOTE | 2024-08-16 16:32 | CT Scan Report ---
CT angio head w con CLINICAL HISTORY: cva TECHNIQUE: CT angiography of the head was performed following intravenous administration of iodinated contrast. Coronal and sagittal MIPS were obtained from the axial data set and were submitted for rev iew. Automated dose lowering techniques and/or adjustment according to patient size were utilized fo r this examination. All measurements were calculated based on NASCET criteria. Comparison: Comparison is made to CTA head and neck 05/09/2023 FINDINGS: CTA Head: The anterior and posterior cerebral circulations are patent. origin of the bilateral posterior cerebral arteries noted. IMPRESSION: No occlusion, hemodynamically significant stenosis, aneurysm, dissection, or arteriovenous malformati on in the major intracranial arteries. Assessment of stenosis of the internal carotid arteries is based on NASCET criteria. ACT 112: Negative or not required by law. Electronically signed by: Feng Perez M.D. 08/16/2024 4:30 PM
--- NOTE | 2024-08-16 16:32 | CT Scan Report ---
CT SCAN OF THE BRAIN WITHOUT IV CONTRAST CLINICAL HISTORY: Strokelike symptoms. COMPARISON STUDY: CT of the brain dated 05/09/2023. TECHNIQUE: Unenhanced axial CT scan of the brain is performed from the vertex to the skull base. A d ose lowering technique was utilized adhering to the principles of ALARA. FINDINGS: Brain parenchyma: There is age-related involutional change noted in moderate subcortical and perivent ricular microangiopathic disease. There is no hemorrhage, mass effect, or evidence of acute territori al ischemia by CT criteria. Lea-white matter differentiation is preserved. No extra-axial fluid jacki ection is seen. Ventricles, sulci, cisterns: Prominent secondary to involutional change. Intracranial vasculature: The visualized intracranial vasculature at the skull base is normal in appe arance. Calvarium: Unremarkable. Sinuses and mastoids: The paranasal sinuses are clear. The mastoid air cells are well pneumatized. Orbits: The bony orbits are grossly intact. IMPRESSION: There is no hemorrhage, mass effect, or evidence of acute territorial ischemia by CT david de anda. ACT 112: Negative or not required by law. Electronically signed by: Sterling Terrazas M.D. 08/16/2024 4:31 PM
--- NOTE | 2024-08-16 16:37 | CT Scan Report ---
CT ANGIOGRAM OF THE NECK CLINICAL HISTORY: Strokelike symptoms. COMPARISON STUDY: CT of the neck dated 02/29/2024. TECHNIQUE: Following the IV administration of 119 of Optiray 320, CT angiogram of the neck was perfor med from the aortic arch to the skull base. Images are reviewed in the axial, sagittal, and coronal p lanes. 3-D MIPS images are created and assessed. IV contrast was administered without complication. A ll measurements were calculated based on NASCET criteria. A dose lowering technique was utilized adh ering to the principles of ALARA. CT DOSE: 1026.94 mGy.cm FINDINGS: Thoracic aorta: There is mild atherosclerotic calcification of the thoracic aorta. Visualized portion s of the thoracic aorta are normal in caliber. The aortic arch demonstrates 4-vessel variant anatomy. An aberrant right subclavian artery arises as a fourth branch and courses posterior to the esophagus . Right carotid arterial system: The right common carotid artery is widely patent, as are the right int ernal and external carotid arteries. Calcified plaque is seen in the carotid bulb. Left carotid arterial system: The left common carotid artery is widely patent, as are the left copywriting intern al and external carotid arteries. Calcified plaque is noted in the carotid bulbs. Vertebral arteries: There is high-grade stenosis at the origin of the left vertebral artery seen on a xial image #69. The vertebral arteries are otherwise patent bilaterally noting mild left-sided domina nce. Subclavian arteries: Widely patent bilaterally. Intracranial vasculature: The visualized intracranial vessels at the skull base are patent. Jugular veins: Patent bilaterally. Brain parenchyma: The visualized brain parenchyma the skull base is within normal limits. Lung apices: Partially visualized upper lobe lung parenchyma appears clear. Soft tissues: The visualized pharyngeal soft tissues are normal in appearance noting angiographic pha se technique. The oropharyngeal airway appears widely patent. The salivary and thyroid glands are nor mal in appearance. No cervical lymphadenopathy is seen. Skeletal structures: The visualized calvarium at the skull base appears intact. The imaged cervical s pine is maintained noting mild multilevel spondylosis. Sinuses and mastoids: The visualized paranasal sinuses are clear. The mastoid air cells are well pneu matized. IMPRESSION: 1. There is high-grade focal stenosis at the origin of the left vertebral artery. 2. Otherwise unremarkable CT angiogram of the neck. 3. Aberrant right subclavian artery is incidentally noted. ACT 112: Negative or not required by law. Electronically signed by: Sterling Terrazas M.D. 08/16/2024 4:36 PM
--- NOTE | 2024-08-16 16:40 | Emergency Department Note ---
Impression & Plan Left leg weakness, Stroke-like symptoms, Headache, Visual disturbance ED Provider Note NAME: STEPHEN CARRION AGE: 63 SEX: F : 1960 ARRIVES VIA: Walk-In INFORMANT: [Patient] ED PROVIDER(S): [Sterling Zepeda MD] Patient first seen by me at 1600 CHIEF COMPLAINT: Stroke alert HISTORY OF PRESENT ILLNESS: Patient first seen by me at 1600 with the start of my shift. The patient is a 63-year-old female who presents to the ER with symptoms that began at 1:45 PM today, 2 hours and 15 minutes ago. The patient states that she was in her basement when she noticed a visual disturbance to the lateral aspect of her left eye. She quickly developed a headache that was left-sided and then spread across the front of the head. She felt dizzy and a bit off balance. She was nauseated. She notes that her left arm and left leg were weak and tingly. Within about 15 or so minutes, the visual disturbance resolved but the other symptoms persisted. She decided to come to the hospital. She states that she feels markedly better now. She has a mild headache and some mild nausea. The left arm and leg are still a bit numb and tingly but markedly improved compared to previous. At home, when this was happening, her blood pressure was above her baseline. The patient is not on blood thinning agents. She has a history of migraines but has never had a headache similar to today, she has never had deficits in her extremities like today. PMHx/PSHx/Social Hx: See Below PHYSICAL EXAM: GENERAL: Patient is in no acute distress. HEENT: No acute trauma, normocephalic atraumatic, mucous membranes moist, no nasal congestion. NECK: No stridor, no adenopathy, no meningismus, trachea is midline. LUNGS: Clear to auscultation bilaterally, no wheeze, no rhonchi, breath sounds equal. HEART: Subtle systolic murmur, regular rate and rhythm. ABDOMEN: Soft, nontender, no peritonitis. EXTREMITIES: No cyanosis, full range of motion of all the joints without pain or difficulty. NEUROLOGIC: Oriented x 3. The patient does have some difficulty with holding the left leg off the bed. She was a bit disorganized with left lower extremity cerebellar dysfunction. No upper extremity deficit or cerebellar dysfunction. No speech slur or facial droop. She was able to walk without too much difficulty but seemed to have a slight limp with her left leg. SKIN: No jaundice, no diaphoresis. DIFFERENTIAL DIAGNOSIS: Stroke, complex migraine, intracranial bleeding, electrolyte imbalance, among others. EMERGENCY DEPARTMENT PROCEDURES: MEDICAL DECISION MAKING: There is no leukocytosis or concerning anemia. There was a normal platelet count. No coagulopathy. No renal failure or significant electrolyte abnormality. No concerning liver enzyme elevation. Patient appeared to be in a euthyroid state. ECG showed a sinus rhythm, no dysrhythmia. Cardiac enzyme testing x 1 was not consistent with acute cardiac injury. Chest x-ray did not show mediastinal widening, pneumonia or pneumothorax. Brain CT showed no acute bleed or mass effect. CT angiography of the head and neck were performed. There was no aneurysm. There was no clot. There was stenosis seen to the left vertebral artery. On exam, the patient did show findings of left lower extremity weakness. She complained of a headache. No speech slur or facial droop. Given her complaints and exam findings, a stroke alert was called. The patient was seen by the stroke neurologist. TNK was felt warranted. The patient did meet criteria for TNK. Verbal consent for the medication was obtained. An order for TNK was placed and the medication was given IV per protocol. Patient seems to be doing well since her TNK administration. She is clearly in need of a hospital stay and further workup. I did speak with case management, the on-call hospitalist was consulted. In short, the patient presents with findings concerning for a complex migraine or possible stroke. After obtaining a stroke neurology consult, TNK was administered. The patient will be admitted for observation and further workup. Prior/Outside records/notes reviewed: None ECG per my interpretation: Indication was possible stroke. The ECG shows a sinus rhythm with some PACs. The rate was 86. There was poor R wave progression. There was no acute ST elevation, no PVCs. The QTc was 437. Continuous Cardiac Monitoring per my interpretation: An order was placed for continuous cardiac monitoring. The monitor shows a rate of 89 with normal sinus rhythm. Imaging/x-ray results per my interpretation: Chest x-ray does not show mediastinal widening, pneumonia or pneumothorax. Chronic Medical/Social conditions affecting care: History of migraines. Care/Management discussed with: [place] neurology-Dr. Washington. Case management and the on-call hospitalist Level of care consideration(s): After review of the information above and other included data: --I believe the patient requires escalation of care to admission Critical Care Note: I have personally spent 51 minutes of critical care time in the direct management of this patient. This includes bedside care, interpretation of diagnostic studies, and testing, discussion with consultants, patient, and family members, and other required patient management activities. This 51 minutes is in excess of all separately billable procedures. DISPOSITION: Admitted Past Med/Surg History Problem List Visual disturbance (Acute) Headache (Acute) Stroke-like symptoms (Acute) Left leg weakness (Acute) Anxiety Pulmonary HTN Migraine Stroke-like symptoms Essential hypertension Cellulitis of face (Acute) Abscess of face (Acute) History of appendectomy History of cholecystectomy History of tonsillectomy Endometriosis History of delivery Abscess of axilla, left (Acute) Cellulitis of axilla, left (Acute) Cellulitis Sepsis Psychological disorder Stomach ulcer Arthritis Medical History Neuropathy Heart attack 1997. no stents or heart failure GERD (gastroesophageal reflux disease) CML (chronic myelocytic leukemia) Surgical History (Updated 04/02/24 @ 00:08 by Rosaura Hemphill) History of incision and drainage (02/29/24) Submantal Chin Abscess Incision and Drainage(Not Applicable) - Flex Ma, DMD Family History Mother Cancer Colorectal cancer Heart disease Hypertension Stroke Father Cancer Heart disease Hypertension Stroke Social History Smoking Status: Never smoker Second Hand Exposure: No; Do You Dip or Chew Tobacco: No; Hx Alcohol Use: Yes Alcohol type: hard liquor Hx Substance Use: No Preferred Language: Chinese Communication Ability: Effective Biometrics Consultant Required: No Beliefs That Will Affect Care: None marital status: Current Living Situation: Significant Other current occupational status: unemployed and disabled How many Children do You have: 3 How many Children do You have Comment: 1 Other Information That Helps Us Care for You: No Feels Safe at Home: Yes Safety Concerns: Feels Safe At This Time Diet: regular during the past year weight has: remained stable Assistive Devices: Glasses Allergies Allergies Allergy/AdvReac Type Severity Reaction Status Date / Time No Known Allergies Allergy Verified 02/29/24 01:02 Home Meds Home Medications Medication Instructions Recorded Confirmed celecoxib 200 mg capsule 200 mg PO DAILY Pain 01/15/23 08/16/24 famotidine 20 mg tablet 20 mg PO BID 01/15/23 08/16/24 gabapentin 800 mg tablet 800 mg PO TID 01/15/23 08/16/24 omeprazole 40 mg capsule,delayed 40 mg PO BID 01/15/23 08/16/24 release doxepin 100 mg capsule 150 mg PO HS PRN Sleep 02/29/24 08/16/24 furosemide 40 mg tablet 40 - 80 mg PO DAILY PRN EDEMA PER 02/29/24 08/16/24 PT hydroxyzine pamoate 25 mg capsule 25 mg PO Q6H PRN Anxiety 02/29/24 08/16/24 lamotrigine 25 mg tablet 50 mg PO HS 02/29/24 08/16/24 topiramate 25 mg tablet 50 mg PO BID 02/29/24 08/16/24 trazodone 100 mg tablet 100 mg PO HS PRN Sleep 02/29/24 08/16/24 brexpiprazole 1 mg tablet (Rexulti) 1 mg PO DAILY 08/16/24 08/16/24 doxycycline hyclate 100 mg capsule 100 mg PO DAILY 08/16/24 08/16/24 duloxetine 60 mg capsule,delayed 60 mg PO DAILY 08/16/24 08/16/24 release Results & Data (ED) Vital Signs Vital Signs - 24 hr 08/16/24 15:11 08/16/24 15:31 08/16/24 16:36 Temperature 36.6 C Temperature Source Temporal Artery Scan Pulse Rate 89 87 Pulse Rate [Apical] Respiratory Rate 20 17 Respiratory Effort / Characteristics Non-Labored Spontaneous Respiratory Depth Normal Blood Pressure 146/99 H Blood Pressure [Right Arm] Blood Pressure Mean 114 Blood Pressure Mean [Right Arm] Pulse Oximetry 97 Oxygen Delivery Method Room Air Room Air Sepsis Recent Fever Within 48 Hours No Sepsis New/Unexplained Change in Mental Status No Sepsis Action Taken by Nursing No Action Required 08/16/24 16:46 08/16/24 16:47 08/16/24 17:01 Temperature Temperature Source Pulse Rate Pulse Rate [Apical] 77 Respiratory Rate 18 Respiratory Effort / Characteristics Respiratory Depth Blood Pressure 135/95 Blood Pressure [Right Arm] 142/93 H 142/93 H Blood Pressure Mean 118 Blood Pressure Mean [Right Arm] 109 109 Pulse Oximetry 96 Oxygen Delivery Method Room Air Sepsis Recent Fever Within 48 Hours Sepsis New/Unexplained Change in Mental Status Sepsis Action Taken by Nursing 08/16/24 17:01 08/16/24 17:01 08/16/24 17:03 Temperature Temperature Source Pulse Rate Pulse Rate [Apical] 78 Respiratory Rate 18 Respiratory Effort / Characteristics Respiratory Depth Blood Pressure 135/95 135/95 Blood Pressure [Right Arm] 135/95 Blood Pressure Mean 118 118 Blood Pressure Mean [Right Arm] 108 Pulse Oximetry 97 Oxygen Delivery Method Room Air Sepsis Recent Fever Within 48 Hours Sepsis New/Unexplained Change in Mental Status Sepsis Action Taken by Nursing 08/16/24 17:16 08/16/24 17:16 08/16/24 17:16 Temperature Temperature Source Pulse Rate Pulse Rate [Apical] Respiratory Rate Respiratory Effort / Characteristics Respiratory Depth Blood Pressure 138/85 138/85 138/85 Blood Pressure [Right Arm] Blood Pressure Mean 107 107 107 Blood Pressure Mean [Right Arm] Pulse Oximetry Oxygen Delivery Method Sepsis Recent Fever Within 48 Hours Sepsis New/Unexplained Change in Mental Status Sepsis Action Taken by Nursing 08/16/24 17:18 08/16/24 17:18 08/16/24 17:21 Temperature Temperature Source Pulse Rate 75 76 Pulse Rate [Apical] 76 Respiratory Rate 20 15 19 Respiratory Effort / Characteristics Respiratory Depth Blood Pressure Blood Pressure [Right Arm] 138/85 Blood Pressure Mean Blood Pressure Mean [Right Arm] 102 Pulse Oximetry 98 Oxygen Delivery Method Room Air Sepsis Recent Fever Within 48 Hours Sepsis New/Unexplained Change in Mental Status Sepsis Action Taken by Nursing 08/16/24 17:30 08/16/24 17:30 Temperature Temperature Source Pulse Rate Pulse Rate [Apical] 70 Respiratory Rate 20 Respiratory Effort / Characteristics Respiratory Depth Blood Pressure 131/91 Blood Pressure [Right Arm] 134/79 Blood Pressure Mean 98 Blood Pressure Mean [Right Arm] 97 Pulse Oximetry 98 Oxygen Delivery Method Room Air Sepsis Recent Fever Within 48 Hours Sepsis New/Unexplained Change in Mental Status Sepsis Action Taken by Detention Medications Current Medication List: was personally reviewed by me Laboratory Data Attestation: I reviewed the patient's lab results. 08/16/24 15:32 08/16/24 15:32 Lab Results 08/16/24 Range/Units 15:32 WBC 5.77 (4.8-10.8) K/ul RBC 4.46 (4.20-5.40) M/uL Hgb 13.2 (12.0-16.0) g/dl Hct 41.0 (37.0-47.0) % MCV 91.9 (80.0-100.0) fL MCH 29.6 (25.0-34.0) pg MCHC 32.2 (32.0-36.0) g/dL RDW Std Deviation 50.2 H (36.4-46.3) fL RDW Coeff of Malena 14.9 H (11.5-14.5) % Plt Count 185 (130-400) K/uL MPV 12.2 (9.4-12.4) fL Immature Gran % (Auto) 0.3 % Neut % (Auto) 43.3 % Lymph % (Auto) 41.8 % Owen % (Auto) 7.8 % Eos % (Auto) 5.9 % Baso % (Auto) 0.9 % Neut # (Auto) 2.50 (1.40-6.50) K/uL Lymph # (Auto) 2.41 (1.20-3.40) K/uL Owen # (Auto) 0.45 (0.11-0.59) K/uL Eos # (Auto) 0.34 (0.00-0.50) K/uL Baso # (Auto) 0.05 (0.00-0.20) K/uL Immature Gran # (Auto) 0.02 (0.01-0.20) K/uL PT 10.9 (9.0-12.0) Seconds INR 1.0 (0.9-1.1) APTT 28 (21-31) Seconds PTT Ratio 1.0 Sodium 139 (136-145) mmol/L Potassium 3.9 (3.5-5.1) mmol/L Chloride 107 (98-107) mmol/L Carbon Dioxide 26 (21-32) mmol/L Anion Gap 6 (3-11) BUN 18 (6-23) mg/dl Creatinine 0.88 (0.6-1.2) mg/dl Est Cr Clr Drug Dosing 88.9 ml/min eGFR 74.72 BUN/Creatinine Ratio 20.5 H (10-20) Glucose 90 (70-99(Fasting)) mg/dl Calcium 9.2 (8.6-10.3) mg/dl Magnesium 1.8 (1.7-2.4) mg/dl Total Bilirubin 0.3 (0.2-1.0) mg/dl AST 34 (13-39) U/L ALT 33 (7-52) U/L Alkaline Phosphatase 87 (34-104) U/L Troponin I High Sens 4.3 (0-14) pg/ml Total Protein 7.2 (6.0-8.3) gm/dl Albumin 4.0 (3.4-5.0) gm/dl Globulin 3.2 (2.5-4.0) gm/dl Albumin/Globulin Ratio 1.3 (0.9-2) TSH 1.092 (0.300-4.500) uIu/ml Administered Medications Gabapentin (Gabapentin 800 Mg Tab) 800 mg PO TID [facility] Stop: 09/15/24 20:59 Last Admin: 08/16/24 20:48 Dose: 800 mg Documented By: CF Lamotrigine (Lamotrigine 25 Mg Tab) 50 mg PO HS GORDO; Protocol Stop: 09/15/24 20:59 Last Admin: 08/16/24 20:48 Dose: 50 mg Documented By: CONCHIS Miscellaneous (Icu Protocol For Hyperglycemia) 1 each N/A ACHS GORDO Stop: 08/18/24 20:59 Last Admin: 08/16/24 20:52 Dose: Not Given Documented By: CONCHIS Pantoprazole Sodium (Pantoprazole 40 Mg Tab) 40 mg PO BID GORDO Stop: 09/15/24 20:59 Last Admin: 08/16/24 20:48 Dose: 40 mg Documented By: CONCHIS Topiramate (Topiramate 50 Mg Tab) 50 mg PO BID GORDO Stop: 09/15/24 20:59 Last Admin: 08/16/24 20:48 Dose: 50 mg Documented By: CONCHIS Discontinued Medications Tenecteplase 25 mg/ Syringe 5 mls @ 60 mls/min IV NOW ONE; Protocol Stop: 08/16/24 16:55 Last Admin: 08/16/24 16:46 Dose: 60 mls/min Documented By: DEBBIE Co-signed By: WRS Ioversol (Optiray 320 125ml) 119 ml IV ONCE ONE Stop: 08/16/24 16:19 Last Admin: 08/16/24 16:18 Dose: 119 ml Documented By: NENA Miscellaneous (Stat Iv/Im) 1 each N/A NOW STA Stop: 08/16/24 16:45 Last Admin: 08/16/24 20:47 Dose: Not Given Documented By: CF Sodium Chloride (Sodium Chloride 0.9% 10ml Flush) 20 ml IV NOW STA Stop: 08/16/24 16:45 Last Admin: 08/16/24 20:47 Dose: Not Given Documented By: CF Imaging Data Radiologist's Impression: Chest X-Ray 08/16/24 15:14 SINGLE VIEW CHEST CLINICAL HISTORY: Atypical chest pain. FINDINGS: A PA chest radiograph is compared to chest x-ray and chest CT dated 01/15/2023. The cardiomediastinal silhouette is unremarkable. The lungs and pleural spaces are clear. No pneumothorax is seen. The bony thorax is grossly intact. Cholecystectomy clips are noted in the right upper quadrant. IMPRESSION: No active disease in the chest. ACT 112: Negative or not required by law. Electronically signed by: Sterling Terrazas M.D. 08/16/2024 3:[address] 08/16/24 16:13 CT SCAN OF THE BRAIN WITHOUT IV CONTRAST CLINICAL HISTORY: Strokelike symptoms. COMPARISON STUDY: CT of the brain dated 05/09/2023. TECHNIQUE: Unenhanced axial CT scan of the brain is performed from the vertex to the skull base. A dose lowering technique was utilized adhering to the principles of ALARA. FINDINGS: Brain parenchyma: There is age-related involutional change noted in moderate subcortical and periventricular microangiopathic disease. There is no hemorrhage, mass effect, or evidence of acute territorial ischemia by CT criteria. Lea-white matter differentiation is preserved. No extra-axial fluid collection is seen. Ventricles, sulci, cisterns: Prominent secondary to involutional change. Intracranial vasculature: The visualized intracranial vasculature at the skull base is normal in appearance. Calvarium: Unremarkable. Sinuses and mastoids: The paranasal sinuses are clear. The mastoid air cells are well pneumatized. Orbits: The bony orbits are grossly intact. IMPRESSION: There is no hemorrhage, mass effect, or evidence of acute territorial ischemia by CT criteria. ACT 112: Negative or not required by law. Electronically signed by: Sterling Terrazas M.D. 08/16/2024 4:31 PM Head CTA 08/16/24 16:13 CT angio head w con CLINICAL HISTORY: cva TECHNIQUE: CT angiography of the head was performed following intravenous administration of iodinated contrast. Coronal and sagittal MIPS were obtained from the axial data set and were submitted for review. Automated dose lowering techniques and/or adjustment according to patient size were utilized for this examination. All measurements were calculated based on NASCET criteria. Comparison: Comparison is made to CTA head and neck 05/09/2023 FINDINGS: CTA Head: The anterior and posterior cerebral circulations are patent. origin of the bilateral posterior cerebral arteries noted. IMPRESSION: No occlusion, hemodynamically significant stenosis, aneurysm, dissection, or arteriovenous malformation in the major intracranial arteries. Assessment of stenosis of the internal carotid arteries is based on NASCET criteria. ACT 112: Negative or not required by law. Electronically signed by: Feng Perez M.D. 08/16/2024 4:30 PM Neck CTA 08/16/24 16:13 CT ANGIOGRAM OF THE NECK CLINICAL HISTORY: Strokelike symptoms. COMPARISON STUDY: CT of the neck dated 02/29/2024. TECHNIQUE: Following the IV administration of 119 of Optiray 320, CT angiogram of the neck was performed from the aortic arch to the skull base. Images are reviewed in the axial, sagittal, and coronal planes. 3-D MIPS images are created and assessed. IV contrast was administered without complication. All measurements were calculated based on NASCET criteria. A dose lowering technique was utilized adhering to the principles of ALARA. CT DOSE: 1026.94 mGy.cm FINDINGS: Thoracic aorta: There is mild atherosclerotic calcification of the thoracic aorta. Visualized portions of the thoracic aorta are normal in caliber. The aortic arch demonstrates 4-vessel variant anatomy. An aberrant right subclavian artery arises as a fourth branch and courses posterior to the esophagus. Right carotid arterial system: The right common carotid artery is widely patent, as are the right internal and external carotid arteries. Calcified plaque is seen in the carotid bulb. Left carotid arterial system: The left common carotid artery is widely patent, as are the left internal and external carotid arteries. Calcified plaque is noted in the carotid bulbs. Vertebral arteries: There is high-grade stenosis at the origin of the left vertebral artery seen on axial image #69. The vertebral arteries are otherwise patent bilaterally noting mild left-sided dominance. Subclavian arteries: Widely patent bilaterally. Intracranial vasculature: The visualized intracranial vessels at the skull base are patent. Jugular veins: Patent bilaterally. Brain parenchyma: The visualized brain parenchyma the skull base is within normal limits. Lung apices: Partially visualized upper lobe lung parenchyma appears clear. Soft tissues: The visualized pharyngeal soft tissues are normal in appearance noting angiographic phase technique. The oropharyngeal airway appears widely patent. The salivary and thyroid glands are normal in appearance. No cervical lymphadenopathy is seen. Skeletal structures: The visualized calvarium at the skull base appears intact. The imaged cervical spine is maintained noting mild multilevel spondylosis. Sinuses and mastoids: The visualized paranasal sinuses are clear. The mastoid air cells are well pneumatized. IMPRESSION: 1. There is high-grade focal stenosis at the origin of the left vertebral artery. 2. Otherwise unremarkable CT angiogram of the neck. 3. Aberrant right subclavian artery is incidentally noted. ACT 112: Negative or not required by law. Electronically signed by: Sterling Terrazas M.D. 08/16/2024 4:36 PM Discharge Plan Visit Data Chief Complaint: Stroke Alert Stated Complaint: LT EYE VISION, NAUSEA, HYPERTENSION, LT SIDE FACE ED Provider: Sterling Zepeda Discharge Problem: Left leg weakness, Stroke-like symptoms, Headache, Visual disturbance Patient Disposition: Admitted As Inpatient Condition: Serious Discharge Problem: Headache Qualifiers: Headache type: unspecified Headache chronicity pattern: acute headache I ntractability: not intractable Qualified Code(s): R51.9 - Headache, unspecified
[2024-08-16] MEDS ORDERED: No Aspirin within 24hrs of THROMBOLYTIC-Stroke PO SCH (16:45)
[2024-08-16] MEDS: TENECTEPLASE 25 MG in SYRINGE 0 ML IV ONE (16:46)
[2024-08-16 17:03] LABS: Magnesium 1.8 mg/dl (1.7-2.4)
--- NOTE | 2024-08-16 17:10 | History & Physical Report ---
Date of Service August 16, 2024 Assessment & Plan (1) Stroke-like symptoms: Plan: LEFT upper extremity/LEFT lower extremity weakness, visual disturbance Presenting symptoms with left eye peripheral visual disturbance, right upper and right lower extremity weakness. TNKase given at 1646 hrs. Remains with some asymmetric left upper and left lower extremity weakness compared to the right on reexam, mild dysmetria CThead: No acute findings CTA head/neck: High-grade focal stenosis at left vertebral artery origin. no acute findings Chest x-ray: No acute findings Troponin normal EKG: Sinus with PACs. No history of A-fib Admitted with post TNKase protocol. No aspirin for 24 hours. Labetalol on- call for hypertension greater than 180 24-hour CT ordered MRI pending Neurology consulted History of ophthalmoplegic migraine Symptoms above thought to be strokelike in origin, differential includes migrainous Follow clinically (2) CML (chronic myelocytic leukemia): Plan: CML follows outpatient White count 5.77 with normal differential Serial labs, no acute intervention at this time. Followed as outpatient - Treated [id number]. Thinks this was at [place]. Does not know what agent she was treated with other than that her CML has been in remission since, her case was complicated by pulmonary hypertension as a consequence of chemo which normalized after 2013 (3) Pulmonary HTN: Plan: Pulmonary HTN - Post Chemo. Treated 2013. Resolved, normalized per patient. She does not know what she was treated with but did have a PICC line and received IV infusions that year. - Treated at [facility]. Records requested. Does not remember physicians name, reports she does not need ongoing medications for this Reports this resolved and has not needed any recent treatment for this. (4) GERD (gastroesophageal reflux disease): Plan: GERD Continue Protonix for GI protection. Pepcid held (5) Heart attack: Plan: Patient reports she was told that she had an AL in the 90s but has never had a heart attack or stent and was never on aspirin or Plavix. She is not on a beta- candice. Denies history of heart failure, is on Lasix for lower extremity edema as needed EKG: Sinus with PACs. V1/V2 inverted T waves. V2 T wave changes new compared to 2022. No chest pain. Troponin normal. Echo pending (6) Anxiety: Plan: Anxiety/mood disorder Stable. Continue Rexulti, Topamax, duloxetine QT is not prolonged (7) Migraine: Plan: Reports he is are different and character and quality than her symptoms today. Is on Topamax Is not sure if this is for migraine or not Plan DVT prophylaxis: Pharmacal prophylaxis contraindicated following thrombolytic therapy CODE STATUS: Full code Disposition: ICU Diet: Heart healthy History of Present Illness Primary Care Provider: Aure Jung is a 63-year-old female with a past medical history of CML, GERD, migraine, peptic ulcer disease who presented with onset of left lateral eye visual deficits, left upper extremity and left lower extremity heaviness at approximately 1:45 PM. She was evaluated in the ER, given TNKase per telestroke recommendations and was recommended for admission for post TNK protocol. Per signout on ER provider evaluation +RLE drift and some RUE poor coordination. Patient was seen at 1600, stroke alert was activated on telestroke consultation TNKase was recommended and given at 1646 hrs. Patient seen at the bedside. She reports that at 145 she was in her normal sta te of health and had not been ill or feeling poorly prior when she was folding close and suddenly had left eye peripheral vision blurriness. She then had a gradual wave of nausea, and onset of left upper and left lower extremity weakness. She also had tingling in her left upper extremity. BP was elevated 220/110 by home BP cuff, this improved by time of ER assessment. She reports her vision gradually improved with rest after about 15 minutes but continued to have left-sided weakness and had to crawl up the stairs to get to the main floor of her house. Subsequently presented to the ER and she felt her weakness gradually improved however still has some residual weakness in her left leg and poor coordination in her left arm, and endorses some qualitative tingling in her left arm. Her vision she feels is almost completely back to normal. She endorses a history of CML treated with oral chemo from 21 09-2012. She does not know what this was treated with however notes that she had resultant pulmonary hypertension which was treated with IV infusions from - with pulmonary pressures that had subsequently normalized. Records requested from [facility] and [facility]. She denies any history of prior stroke or mini strokes. She reports she was told many years ago that she had a heart attack but was never put on a beta-candice [place] or Plavix. She denies any history of heart failure although does take Lasix for swelling as needed. No recent chest pain chest pressure or orthopnea. She does endorse a history of migraines which she reports have a different qu ality and have never been associated with any type of weakness or tingling. She does not use tobacco products, does not drink alcohol Denies medication allergies Reports she did take her normal medications this morning Full code Allergies Allergy/AdvReac Type Severity Reaction Status Date / Time No Known Allergies Allergy Verified 02/29/24 01:02 Home Medications Medication Instructions Recorded Confirmed Type celecoxib 200 mg capsule 200 mg PO DAILY Pain 01/15/23 08/16/24 History famotidine 20 mg tablet 20 mg PO BID 01/15/23 08/16/24 History gabapentin 800 mg tablet 800 mg PO TID 01/15/23 08/16/24 History omeprazole 40 mg capsule,delayed 40 mg PO BID 01/15/23 08/16/24 History release doxepin 100 mg capsule 150 mg PO HS PRN Sleep 02/29/24 08/16/24 History furosemide 40 mg tablet 40 - 80 mg PO DAILY PRN EDEMA PER 02/29/24 08/16/24 Hi story PT hydroxyzine pamoate 25 mg capsule 25 mg PO Q6H PRN Anxiety 02/29/24 08/16/24 History lamotrigine 25 mg tablet 50 mg PO HS 02/29/24 08/16/24 History topiramate 25 mg tablet 50 mg PO BID 02/29/24 08/16/24 History trazodone 100 mg tablet 100 mg PO HS PRN Sleep 02/29/24 08/16/24 History brexpiprazole 1 mg tablet (Rexulti) 1 mg PO DAILY 08/16/24 08/16/24 History doxycycline hyclate 100 mg capsule 100 mg PO DAILY 08/16/24 08/16/24 History duloxetine 60 mg capsule,delayed 60 mg PO DAILY 08/16/24 08/16/24 History release Past Med/Surg History Problem List (Updated 08/16/24 @ 17:24 by Natanael Briggs MD) Pulmonary HTN Migraine Stroke-like symptoms Essential hypertension Cellulitis of face (Acute) Abscess of face (Acute) History of appendectomy History of cholecystectomy History of tonsillectomy Endometriosis History of delivery Abscess of axilla, left (Acute) Cellulitis of axilla, left (Acute) Cellulitis Sepsis Psychological disorder Stomach ulcer Arthritis Medical History (Updated 08/16/24 @ 17:24 by Natanael Briggs MD) Anxiety Neuropathy Heart attack 1997. no stents or heart failure GERD (gastroesophageal reflux disease) CML (chronic myelocytic leukemia) Surgical History (Updated 04/02/24 @ 00:08 by Rosaura Hemphill) History of incision and drainage (02/29/24) Submantal Chin Abscess Incision and Drainage(Not Applicable) - Flex Ma, DMD Family History Mother Cancer Colorectal cancer Heart disease Hypertension Stroke Father Cancer Heart disease Hypertension Stroke Social History Smoking Status: Never smoker Second Hand Exposure: No; Do You Dip or Chew Tobacco: No; Hx Alcohol Use: No Hx Substance Use: No Preferred Language: Lebanese Communication Ability: Effective Automation Engineering Technician Required: No Beliefs That Will Affect Care: None marital status: Current Living Situation: Alone current occupational status: unemployed and disabled How many Children do You have: 3 How many Children do You have Comment: 1 Feels Safe at Home: Yes Diet: regular during the past year weight has: remained stable Assistive Devices: Cane and Glasses Physical Exam Physical Exam: General: A&Ox3. NAD. Cooperative. HEENT: Atraumatic, normocephalic. Pulm: CTAB A&P. -wheezes, -rales, -rhonchi. Symmetrical chest rise. No increased work of breathing. No respiratory distress. Cardiac: RRR, -mrg. Radial pulses intact and symmetrical. Abdominal: Nontender, nondistended, soft. BS present. CRANIAL NERVES: II: Pupils equal and reactive, no relative afferent pupillary defect, no VF cuts III, IV, : EOM intact, no gaze preference or deviation, no nystagmus. V: normal sensation in V1, V2, and V3 segments bilaterally VII: no asymmetry, no nasolabial fold flattening VIII: normal hearing to speech IX, X: normal palatal elevation, no uvular deviation XI: 5/5 head turn and 5/5 shoulder shrug bilaterally XII: midline tongue protrusion MOTOR: RUE: 5/5 Shoulder internal rotation, external rotation, flexion, extension, abduction, adduction 5/5 Elbow flexion/extension, wrist flexi on/extension 5/5 senior statistician strength LUE: 5/5 strength to senior statistician strength, elbow fle xion/extension, shoulder flexion/internal rotation/external rotation but is qualitatively weaker compared to the right and fatigues easily RLE: 5/5 to hip flexion, knee extension, ankl e dorsiflexion/plantarflexion LLE: 5/5 strength grossly to hip flexion, kne e extension, ankle dorsiflexion/plantarflexion but qualitatively weaker compared to the right, fatigues easily, and has some asymmetric right hip drift on testing SENSORY: Station intact to soft touch in the hands and feet bilaterally, some qualitative tingling/paresthesia of the left upper extremity to soft touch COORD: Normal [id number] on the right. Slight dysmetria of the left upper extremity and left lower extremity on finger-nose and [id number] Results & Data Results & Data Vital Signs (Past 12 Hours) Vital Signs Temp Pulse Resp BP Pulse Ox O2 Del Method 08/16/24 16:36 87 17 08/16/24 15:31 Room Air 08/16/24 15:11 36.6 C 89 20 146/99 H 97 Room Air PG Care Time/CCT Total # of Minutes Spent Total Time Spent with Patient: Total time spent is greater than 50% in coordination of care (as documented) at patient's floor/unit and/or counseling patient: Coding Level of Care Code 45348 INT INP/OBS CARE 3/75MIN Diagnoses Stroke-like symptoms R29.90 CML (chronic myelocytic leukemia) C92.10 Pulmonary HTN I27.20 GERD (gastroesophageal reflux disease) K21.9 Heart attack I21.9 Anxiety F41.9 Migraine G43.909
[2024-08-16 17:18] LABS: Thyroid Stimulating Hormone 1.092 uIu/ml (0.300-4.500)
[2024-08-16] MEDS ORDERED: PHARMACIST DISCHARGE MED REC CONSULT PRN (18:11)
[2024-08-16] MEDS ORDERED: LABETALOL HCL IV 5 MG/ML 20ML IV PRN ×2 (18:11→19:14)
[2024-08-16] MEDS ORDERED: hydrOXYzine HCl 25 MG TAB PO PRN (18:11)
--- NOTE | 2024-08-16 18:41 | Critical Care Consultation ---
Date of Consultation August 16, 2024 Assessment & Plan (1) Stroke-like symptoms: (2) Migraine: (3) Essential hypertension: (4) Anxiety: Plan Reason Critically Ill: 63 YOF presents with stroke like symptoms of visual changes, headache localized to left side, left arm and left leg numbness/tingling/weakness. Current NIHSS- 3, TNK administered at 1645. To ICU for post Thrombolytic monitoring. Neuro - Stroke like symptoms s/p thrombolytics, HX neuropathy, Hx shingles. Hx Anxiety [facility] ICU: Negative - STroke like symptoms- NIHSS 3- risk factors- HTN uncontrolled, HLD, Possibly untreated LONA, - CTA head and neck- noted vertebral artery stenosis at origin with good filling distally- No LVO or ICAD, or carotid stenosis - BP goal post thrombolytics < 180/105- Labetalol 10mg IV q2h prn - allow permissive hypertension - Neurological exams per protocol q1 hour- change or headache or bleeding - repeat head CT scan non=contrast - Start high intensity statin- increase crestor to 40mg - lipid panel on morning - HGBa1C in am - STOP-BANG- 5- recommend up to date sleep study as outpatient - ECHO in am with bubble study - Telemetry for 24 hours eval for dysrhythmia- consider extended outpatient monitoring if warranted for dysrhythmia - DDX would be migraine- MRI pending - Hx migraine and anxiety- continue lamotrigine, topiramate, trazadone if needed, doxepin, Rexulti Cardiac - HTN poorly controlled - BP elevated on arrival to [facility]- not on agent at home, may benefit from additional therapy - trend - BP goal post thrombolytics as above Respiratory - No acute needs - reported previous history of sleep apnea, but not on CPAP and "was many years ago" - see above - recommend repeating as outpatient GI - GERD - COntinue PPI - Advance diet as tolerated RENAL/LYTES - No acute needs - No acute needs ENDO - No acute needs - HGB A1c in am - therapy added as indicated - TSH normal HEME - No acute needs ID - No concner at this time for infectious etiology - Shingles rash about gone on left lower trunk- completed acyclovir course LINES/IV ACCESS - PIV Continue use of these lines DVT PROPHYLAXIS - SCDS, chemoprophylaxis contraindicated 24 hours post thrombolytics DISPO- ICU 24 hours post thrombolytics follow neurological exam and hemodynamic parameters I have personally spent 45 minutes of critical care time in the direct management of this patient. This includes time spent evaluating patient, direct bedside care, chart review, placing orders, interpretation of diagnostic studies, discussion with consultants, patient, and family members, as well as other required patient management activities. This time is exclusive of all separately billable procedures, and separate from and in addition to any other critical care service time. Thank you for allowing us to participate in the care of this patient. Please refer to my attending physician's documentation for any further recommendations. History of Present Illness Reason for Consultation: stroke like symptoms s/p thrombolytic administration Requesting Physician: Natanael Briggs MD Attending Physician: Natanael Briggs MD History of Present Illness 63 YOF with medical history of: CML ( [place]), GERD, Migraines, PUD, Anxiety. periformis syndrome left side, hx staph infection skin, NAFLD, Shingles- just completed course of acyclovir. Patient reports that around 1600 today, she was in the basement folding laundry, she noted a left lateral visual field change that was "like some one turning the pages of a book rapidly and you trying to look through them", this was then associated with a left sided headache that she feels was just around her left eye and may have been associated with left facial numbness. She took Motrin and instead of symptoms improving, they continued with circumferential tingling of her left arm from shoulder to hand and left leg as well. The left leg sensation appears to improve to normal just above the knee. She then came to the EMD. In the EMD, she was worked up as a stroke alert, following head CT, CTA of the head and neck completion and evaluation by telestroke, she was deemed and thrombolytic candidate. She received TNK at 1645. She will be admitted to the ICU for contin ued neurological evaluations following thrombolytic administration. We will monitor her hemodynamics and rhythm via telemetry. Patient reports that she has had migraines in the past, but not one like this,- she feels her migraines have been very consistent in the past with bilateral visual changes of "silver wiggling lines and blurriness" and her headahces with these migraines have always been bitemporal and frontal in nature. She is not on any abortive medications, however takes Motrin and is on Topamax. CODE: FULL Allergies Allergy/AdvReac Type Severity Reaction Status Date / Time No Known Allergies Allergy Verified 02/29/24 01:02 Home Medications Medication Instructions Recorded Confirmed Type celecoxib 200 mg capsule 200 mg PO DAILY Pain 01/15/23 08/16/24 History famotidine 20 mg tablet 20 mg PO BID 01/15/23 08/16/24 History gabapentin 800 mg tablet 800 mg PO TID 01/15/23 08/16/24 History omeprazole 40 mg capsule,delayed 40 mg PO BID 01/15/23 08/16/24 History release doxepin 100 mg capsule 150 mg PO HS PRN Sleep 02/29/24 08/16/24 History furosemide 40 mg tablet 40 - 80 mg PO DAILY PRN EDEMA PER 02/29/24 08/16/24 History PT hydroxyzine pamoate 25 mg capsule 25 mg PO Q6H PRN Anxiety 02/29/24 08/16/24 History lamotrigine 25 mg tablet 50 mg PO HS 02/29/24 08/16/24 History topiramate 25 mg tablet 50 mg PO BID 02/29/24 08/16/24 History trazodone 100 mg tablet 100 mg PO HS PRN Sleep 02/29/24 08/16/24 History brexpiprazole 1 mg tablet (Rexulti) 1 mg PO DAILY 08/16/24 08/16/24 History doxycycline hyclate 100 mg capsule 100 mg PO DAILY 08/16/24 08/16/24 History duloxetine 60 mg capsule,delayed 60 mg PO DAILY 08/16/24 08/16/24 History release Patient History Medical History (Updated 08/16/24 @ 19:17 by HEATHER Rudd) Neuropathy Heart attack 1997. no stents or heart failure GERD (gastroesophageal reflux disease) CML (chronic myelocytic leukemia) Surgical History (Updated 04/02/24 @ 00:08 by Rosaura Hemphill) History of incision and drainage (02/29/24) Submantal Chin Abscess Incision and Drainage(Not Applicable) - Flex Ma, AIME Family History Mother Cancer Colorectal cancer Heart disease Hypertension Stroke Father Cancer Heart disease Hypertension Stroke Social History Smoking Status: Never smoker Second Hand Exposure: No; Do You Dip or Chew Tobacco: No; Hx Alcohol Use: Yes Alcohol type: hard liquor Hx Substance Use: No Preferred Language: Frisian Communication Ability: Effective County Director Required: No Beliefs That Will Affect Care: None marital status: Current Living Situation: Significant Other current occupational status: unemployed and disabled How many Children do You have: 3 How many Children do You have Comment: 1 Other Information That Helps Us Care for You: No Feels Safe at Home: Yes Safety Concerns: Feels Safe At This Time Diet: regular during the past year weight has: remained stable Assistive Devices: Glasses Review of Systems Review of Systems: REVIEW OF SYSTEMS: Constitutional: No fever, sweats or chills Eyes: (+) visual changes, diplopia, no worsening or blurred vision ENT: normal hearing, no trouble swallowing Respiratory: No cough, sputum, dyspnea at rest or on exertion Cardiovascular: No chest pain, tightness or palpitations Abdomen: No pain, nausea, vomiting, diarrhea or constipation Neurologic: (+) weakness, numbness/tingling, or balance problems Psychiatric: (+) anxiety or depression Skin: (+) history of staph and skin lesions Physical Exam Physical Exam: PHYSICAL EXAM: General: awake, alert, no apparent distress Head: Normocephalic, atraumatic ENT: PERRL, EOMI, no pharyngeal exudate, mucous membranes moist Neuro: AAO x 3, speech clear and appropriate, strength intact bilaterally 5/5 right side, 4/4 left side without drift, sensation intact and equal all extremities and dermatome on right, diminished sensation all left upper arm and left leg to just above the knee. No ataxia, but slower finger to nose on the left. no pronator drift Chest: equal rise and fall of the chest, no accessory muscle use, no heaves or thrills, Clear to auscultation, on room air, Cardiac: Regular rate and rhythm, telemetry reviewed, skin warm dry, cap refill <3 seconds, peripheral pulses +2 no JVD, no murmur, no JVD, no edema GI: NABS x 4 quadrants, soft, nontender to palpation, no rebound, guarding or tenderness : Spontaneously voiding, no pain, no CVA tenderness, Extremities: Normal inspection, no peripheral edema or erythema, calfs nontender to palpation Psych: Normal mood and affect Skin: no rash or erythema Results & Data Results & Data Vital Signs (Past 12 Hours) Vital Signs Temp Pulse Pulse Resp BP BP Pulse Ox 08/16/24 17:49 79 08/16/24 17:45 75 19 08/16/24 17:33 73 17 08/16/24 17:30 131/91 08/16/24 17:30 70 20 134/79 98 08/16/24 17:21 76 19 08/16/24 17:18 75 15 08/16/24 17:18 76 20 138/85 98 08/16/24 17:16 138/85 08/16/24 17:16 138/85 08/16/24 17:16 138/85 08/16/24 17:03 78 18 135/95 97 08/16/24 17:01 135/95 08/16/24 17:01 135/95 08/16/24 17:01 135/95 08/16/24 16:47 77 18 142/93 H 96 08/16/24 16:46 142/93 H 08/16/24 16:36 87 17 08/16/24 15:31 08/16/24 15:11 36.6 C 89 20 146/99 H 97 O2 Del Method 08/16/24 17:49 08/16/24 17:45 08/16/24 17:33 08/16/24 17:30 08/16/24 17:30 Room Air 08/16/24 17:21 08/16/24 17:18 08/16/24 17:18 Room Air 08/16/24 17:16 08/16/24 17:16 08/16/24 17:16 08/16/24 17:03 Room Air 08/16/24 17:01 08/16/24 17:01 08/16/24 17:01 08/16/24 16:47 Room Air 08/16/24 16:46 08/16/24 16:36 08/16/24 15:31 Room Air 08/16/24 15:11 Room Air Laboratory Results Abnormal lab results 08/16/24 Range/Units 15:32 RDW Std Deviation 50.2 H (36.4-46.3) fL RDW Coeff of Malena 14.9 H (11.5-14.5) % BUN/Creatinine Ratio 20.5 H (10-20) Diagnostic Findings Chest X-Ray 08/16/24 15:14 SINGLE VIEW CHEST CLINICAL HISTORY: Atypical chest pain. FINDINGS: A PA chest radiograph is compared to chest x-ray and chest CT dated 01/15/2023. The cardiomediastinal silhouette is unremarkable. The lungs and pleural spaces are clear. No pneumothorax is seen. The bony thorax is grossly intact. Cholecystectomy clips are noted in the right upper quadrant. IMPRESSION: No active disease in the chest. ACT 112: Negative or not required by law. Electronically signed by: Sterling Terrazas M.D. 08/16/2024 3:[address] 08/16/24 16:13 CT SCAN OF THE BRAIN WITHOUT IV CONTRAST CLINICAL HISTORY: Strokelike symptoms. COMPARISON STUDY: CT of the brain dated 05/09/2023. TECHNIQUE: Unenhanced axial CT scan of the brain is performed from the vertex to the skull base. A dose lowering technique was utilized adhering to the principles of ALARA. FINDINGS: Brain parenchyma: There is age-related involutional change noted in moderate subcortical and periventricular microangiopathic disease. There is no hemorrhage, mass effect, or evidence of acute territorial ischemia by CT criteria. Lea-white matter differentiation is preserved. No extra-axial fluid collection is seen. Ventricles, sulci, cisterns: Prominent secondary to involutional change. Intracranial vasculature: The visualized intracranial vasculature at the skull base is normal in appearance. Calvarium: Unremarkable. Sinuses and mastoids: The paranasal sinuses are clear. The mastoid air cells are well pneumatized. Orbits: The bony orbits are grossly intact. IMPRESSION: There is no hemorrhage, mass effect, or evidence of acute territorial ischemia by CT criteria. ACT 112: Negative or not required by law. Electronically signed by: Sterling Terrazas M.D. 08/16/2024 4:31 PM Head CTA 08/16/24 16:13 CT angio head w con CLINICAL HISTORY: cva TECHNIQUE: CT angiography of the head was performed following intravenous administration of iodinated contrast. Coronal and sagittal MIPS were obtained from the axial data set and were submitted for review. Automated dose lowering techniques and/or adjustment according to patient size were utilized for this examination. All measurements were calculated based on NASCET criteria. Comparison: Comparison is made to CTA head and neck 05/09/2023 FINDINGS: CTA Head: The anterior and posterior cerebral circulations are patent. origin of the bilateral posterior cerebral arteries noted. IMPRESSION: No occlusion, hemodynamically significant stenosis, aneurysm, dissection, or arteriovenous malformation in the major intracranial arteries. Assessment of stenosis of the internal carotid arteries is based on NASCET criteria. ACT 112: Negative or not required by law. Electronically signed by: Feng Perez M.D. 08/16/2024 4:30 PM Neck CTA 08/16/24 16:13 CT ANGIOGRAM OF THE NECK CLINICAL HISTORY: Strokelike symptoms. COMPARISON STUDY: CT of the neck dated 02/29/2024. TECHNIQUE: Following the IV administration of 119 of Optiray 320, CT angiogram of the neck was performed from the aortic arch to the skull base. Images are reviewed in the axial, sagittal, and coronal planes. 3-D MIPS images are created and assessed. IV contrast was administered without complication. All measurements were calculated based on NASCET criteria. A dose lowering technique was utilized adhering to the principles of ALARA. CT DOSE: 1026.94 mGy.cm FINDINGS: Thoracic aorta: There is mild atherosclerotic calcification of the thoracic aorta. Visualized portions of the thoracic aorta are normal in caliber. The aortic arch demonstrates 4-vessel variant anatomy. An aberrant right subclavian artery arises as a fourth branch and courses posterior to the esophagus. Right carotid arterial system: The right common carotid artery is widely patent, as are the right internal and external carotid arteries. Calcified plaque is seen in the carotid bulb. Left carotid arterial system: The left common carotid artery is widely patent, as are the left internal and external carotid arteries. Calcified plaque is noted in the carotid bulbs. Vertebral arteries: There is high-grade stenosis at the origin of the left vertebral artery seen on axial image #69. The vertebral arteries are otherwise patent bilaterally noting mild left-sided dominance. Subclavian arteries: Widely patent bilaterally. Intracranial vasculature: The visualized intracranial vessels at the skull base are patent. Jugular veins: Patent bilaterally. Brain parenchyma: The visualized brain parenchyma the skull base is within normal limits. Lung apices: Partially visualized upper lobe lung parenchyma appears clear. Soft tissues: The visualized pharyngeal soft tissues are normal in appearance noting angiographic phase technique. The oropharyngeal airway appears widely patent. The salivary and thyroid glands are normal in appearance. No cervical lymphadenopathy is seen. Skeletal structures: The visualized calvarium at the skull base appears intact. The imaged cervical spine is maintained noting mild multilevel spondylosis. Sinuses and mastoids: The visualized paranasal sinuses are clear. The mastoid air cells are well pneumatized. IMPRESSION: 1. There is high-grade focal stenosis at the origin of the left vertebral artery. 2. Otherwise unremarkable CT angiogram of the neck. 3. Aberrant right subclavian artery is incidentally noted. ACT 112: Negative or not required by law. Electronically signed by: Sterling Terrazas M.D. 08/16/2024 4:36 PM Medications Administered Discontinued Medications Tenecteplase 25 mg/ Syringe 5 mls @ 60 mls/min IV NOW ONE; Protocol Stop: 08/16/24 16:55 Last Admin: 08/16/24 16:46 Dose: 60 mls/min Documented By: DEBBIE Co-signed By: SEBAS Ioversol (Optiray 320 125ml) 119 ml IV ONCE ONE Stop: 08/16/24 16:19 Last Admin: 08/16/24 16:18 Dose: 119 ml Documented By: NENA Home Medications celecoxib 200 mg capsule 200 mg PO DAILY Pain 01/15/23 [History Confirmed 08/16/24] famotidine 20 mg tablet 20 mg PO BID 01/15/23 [History Confirmed 08/16/24] gabapentin 800 mg tablet 800 mg PO TID 01/15/23 [History Confirmed 08/16/24] omeprazole 40 mg capsule,delayed release 40 mg PO BID 01/15/23 [History Confirmed 08/16/24] doxepin 100 mg capsule 150 mg PO HS PRN Sleep 02/29/24 [History Confirmed 08/16/24] furosemide 40 mg tablet 40 - 80 mg PO DAILY PRN EDEMA PER PT 02/29/24 [History Confirmed 08/16/24] hydroxyzine pamoate 25 mg capsule 25 mg PO Q6H PRN Anxiety 02/29/24 [History Confirmed 08/16/24] lamotrigine 25 mg tablet 50 mg PO HS 02/29/24 [History Confirmed 08/16/24] topiramate 25 mg tablet 50 mg PO BID 02/29/24 [History Confirmed 08/16/24] trazodone 100 mg tablet 100 mg PO HS PRN Sleep 02/29/24 [History Confirmed 08/16/24] brexpiprazole 1 mg tablet (Rexulti) 1 mg PO DAILY 08/16/24 [History Confirmed 08/16/24] doxycycline hyclate 100 mg capsule 100 mg PO DAILY 08/16/24 [History Confirmed 08/16/24] duloxetine 60 mg capsule,delayed release 60 mg PO DAILY 08/16/24 [History Confirmed 08/16/24] Active Medications Aspirin (No Aspirin Within 24hrs Of Thrombolytic-Stroke) 1 each PO UD GORDO Stop: 08/17/24 16:44 Duloxetine HCl (Duloxetine Hcl 60 Mg Cap) 60 mg PO DAILY GORDO Stop: 09/16/24 08:59 Gabapentin (Gabapentin 800 Mg Tab) 800 mg PO TID GORDO Stop: 09/15/24 20:59 Hydroxyzine HCl (Hydroxyzine Hcl 25 Mg Tab) 25 mg PO Q6H PRN PRN Reason: Anxiety Stop: 09/15/24 18:10 Labetalol HCl (Labetalol Hcl Iv 5 Mg/Ml 20ml) 10 mg IV Q2H PRN PRN Reason: SBP >180 or DBP >105 mmHg Stop: 09/15/24 18:10 Lamotrigine (Lamotrigine 25 Mg Tab) 50 mg PO HS GORDO; Protocol Stop: 09/15/24 20:59 Miscellaneous (Brexpiprazole [Rexulti] 1 Mg Order Awaiting Action) 1 each N/A QS [facility] Stop: 09/16/24 00:00 Miscellaneous (Icu Protocol For Hyperglycemia) 1 each N/A ACHS [facility] Stop: 08/18/24 20:59 Miscellaneous Information (Pharmacist Discharge Med Rec Consult) 1 each N/A UD PRN PRN Reason: Consult Stop: 09/15/24 18:10 Pantoprazole Sodium (Pantoprazole 40 Mg Tab) 40 mg PO BID GORDO Stop: 09/15/24 20:59 Rosuvastatin Calcium (Rosuvastatin Calcium 20 Mg Tab) 20 mg PO QAM GORD[facility] Stop: 09/16/24 08:59 Topiramate (Topiramate 50 Mg Tab) 50 mg PO BID [facility] Stop: 09/15/24 20:59 Coding Level of Care Code 53439 IN/OBS CONSULT LVL 3,45M Diagnoses Stroke-like symptoms R29.90 Migraine G43.909 Essential hypertension I10 Anxiety F41.9
[2024-08-16 19:29] VITALS: TEMP 97.7
[2024-08-16] MEDS: SODIUM CHLORIDE 0.9% 10ML FLUSH IV STA (20:47)
[2024-08-16] MEDS: STAT IV/IM STA (20:47)
[2024-08-16] MEDS: TOPIRAMATE 50 MG TAB PO SCH (20:48)
[2024-08-16] MEDS: lamoTRIgine 25 MG TAB PO SCH (20:48)
[2024-08-16] MEDS: PANTOprazole 40 MG TAB PO SCH (20:48)
[2024-08-16] MEDS: GABAPENTIN 800 MG TAB PO SCH (20:48)
[2024-08-16] MEDS: ICU Protocol for HYPERglycemia SCH (20:52)
--- NOTE | 2024-08-16 20:57 | Magnetic Resonance Report ---
Exam(s): MRI HEAD Without Contrast EXAM: MR Head Without Intravenous Contrast CLINICAL HISTORY: Reason for exam: cva post tnkase. TECHNIQUE: Magnetic resonance images of the head/brain without intravenous contrast in multiple planes. COMPARISON: CT head, 08/16/24 FINDINGS: Brain: No diffusion restriction to suggest acute cerebral ischemia. No acute intracranial hemorrhage. No mass-effect or midline shift. Parenchymal volume normal for age. Periventricular and deep cerebral white matter FLAIR signal hyperintensity consistent with mild to moderate chronic small vessel ischemic change. Partially empty sella turcica. Ventricles: Unremarkable. No hydrocephalus. Bones/joints: Unremarkable. No acute fracture. Sinuses: Unremarkable as visualized. Mastoid air cells: Unremarkable as visualized. No mastoid effusion. Orbits: Unremarkable as visualized. IMPRESSION: No acute findings in the head/brain. No evidence of intracranial hemorrhage. Electronically signed by: Shira Veras M.D. 08/16/24 20:56 PM
[2024-08-17 04:08] LABS: Chol HDL Ratio 2.9 (0-5)
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
[2024-08-17 07:01] LABS: Estimated Average Glucose 114 mg/dl; Hemoglobin A1C 5.6 % (4.5-5.6)
[2024-08-17] MEDS: ROSUVASTATIN CALCIUM 20 MG TAB PO SCH (08:31)
[2024-08-17] MEDS: DULoxetine HCL 60 MG CAP PO SCH (08:32)
[2024-08-17] MEDS ORDERED: DOXYCYCLINE HYCLATE 100 MG CAP PO SCH (09:00)
[2024-08-17] MEDS ORDERED: ROSUVASTATIN CALCIUM 20 MG TAB PO SCH (09:00)
--- NOTE | 2024-08-17 09:26 | Critical Care Progress Note ---
Date of Service August 17, 2024 Assessment & Plan (1) Stroke-like symptoms: Plan Impression: 63-year-old female with peripheral neuropathy anxiety and migraines seen with strokelike symptoms and received TNK in the emergency room. MRI of the brain unremarkable. Her symptoms have resolved. Recommendations: 1. Status post TNK administration: Will perform follow-up CT scan 24 hours post TNK and if no evidence of hemorrhage, the patient can be discharged out of the ICU with disposition to be determined by the primary admitting service. 2. Await formal neurology consultation. Physical therapy and Occupational Therapy consultations. 3. Continue outpatient medical regimen. Patient's follow-up CT scan will be performed this afternoon. If no evidence of hemorrhage, the patient can be dismissed from the ICU and critical care services will sign off. Admission and Anticipated Discharge Date Admission Date: August 16, 2024 Subjective Patient seen and examined. EMR reviewed. Discussed on multidisciplinary rounds and with bedside critical care nurse. Her neurological complaints have essentially resolved and she is back to baseline this morning. No neurological complaints. She denies chest pain palpitations or other systematic complaints. Review of Systems Review of Systems: All systems reviewed & are unremarkable except as noted in Subjective Physical Exam Physical Exam: PHYSICAL EXAM: General: awake, alert, no apparent distress Head: Normocephalic, atraumatic ENT: PERRL, EOMI, no pharyngeal exudate, mucous membranes moist Neuro: AAO x 3, speech clear and appropriate, strength intact bilaterally 5/5 right side, 4/4 left side without drift, sensation intact and equal all extremities and dermatome on right, diminished sensation all left upper arm and left leg to just above the knee. No ataxia, but slower finger to nose on the left. no pronator drift Chest: equal rise and fall of the chest, no accessory muscle use, no heaves or thrills, Clear to auscultation, on room air, Cardiac: Regular rate and rhythm, telemetry reviewed, skin warm dry, cap refill <3 seconds, peripheral pulses +2 no JVD, no murmur, no JVD, no edema GI: NABS x 4 quadrants, soft, nontender to palpation, no rebound, guarding or tenderness : Spontaneously voiding, no pain, no CVA tenderness, Extremities: Normal inspection, no peripheral edema or erythema, calfs nontender to palpation Psych: Normal mood and affect Skin: no rash or erythema Results & Data Results & Data Vital Signs (Past 12 Hours) Vital Signs Temp Pulse Pulse Resp BP BP Pulse Ox 08/17/24 09:15 84 18 128/62 93 08/17/24 08:15 95 H 16 111/77 94 08/17/24 07:15 90 15 133/76 95 08/17/24 07:05 85 08/17/24 06:45 132/88 08/17/24 06:45 90 22 90 08/17/24 06:39 86 14 94 08/17/24 06:31 124/95 08/17/24 06:31 124/95 08/17/24 06:27 86 29 H 92 08/17/24 06:15 36.5 C 86 29 H 124/95 92 08/17/24 06:00 110/80 08/17/24 06:00 90 15 08/17/24 05:45 126/75 08/17/24 05:45 126/75 08/17/24 05:39 83 18 94 08/17/24 05:30 87 15 93 08/17/24 05:30 128/76 08/17/24 05:30 128/76 08/17/24 05:27 85 16 93 08/17/24 05:15 119/85 08/17/24 05:15 119/85 08/17/24 05:15 36.5 C 79 27 H 119/85 93 08/17/24 05:12 79 27 H 93 08/17/24 05:00 139/86 08/17/24 05:00 83 19 88 L 08/17/24 04:45 131/78 08/17/24 04:42 88 15 93 08/17/24 04:30 100/82 08/17/24 04:30 100/82 08/17/24 04:30 100/82 08/17/24 04:30 81 14 91 08/17/24 04:24 85 13 91 08/17/24 04:15 36.5 C 81 14 100/82 91 08/17/24 04:03 86 18 92 08/17/24 04:00 121/85 08/17/24 03:54 82 15 92 08/17/24 03:39 95 08/17/24 03:30 121/82 08/17/24 03:27 92 08/17/24 03:15 127/94 08/17/24 03:15 36.5 C 82 20 127/94 92 08/17/24 03:09 93 08/17/24 03:00 117/91 08/17/24 03:00 117/91 08/17/24 03:00 117/91 08/17/24 02:51 85 12 93 08/17/24 02:48 84 14 93 08/17/24 02:45 120/90 08/17/24 02:42 90 14 94 08/17/24 02:39 85 17 93 08/17/24 02:30 122/87 08/17/24 02:15 36.5 C 85 17 122/87 93 08/17/24 02:00 120/82 08/17/24 01:48 87 18 94 08/17/24 01:45 137/87 08/17/24 01:45 81 16 91 08/17/24 01:30 113/89 08/17/24 01:30 82 16 08/17/24 01:15 36.5 C 79 15 137/86 91 08/17/24 01:15 79 15 91 08/17/24 01:15 137/86 08/17/24 01:15 137/86 08/17/24 01:00 122/80 08/17/24 01:00 122/80 08/17/24 00:54 80 18 95 08/17/24 00:46 117/87 08/17/24 00:45 36.5 C 83 24 117/84 95 08/17/24 00:45 83 23 08/17/24 00:33 81 21 94 08/17/24 00:31 126/80 08/17/24 00:31 126/80 08/17/24 00:31 126/80 08/17/24 00:15 36.5 C 83 17 136/86 94 08/17/24 00:15 136/86 08/17/24 00:09 83 17 94 08/17/24 00:03 89 14 97 08/17/24 00:00 83 08/17/24 00:00 124/80 08/16/24 23:48 87 28 H 96 08/16/24 23:46 112/80 08/16/24 23:46 112/80 08/16/24 23:46 112/80 08/16/24 23:45 36.5 C 88 21 105/73 95 08/16/24 23:33 85 20 97 08/16/24 23:31 105/73 08/16/24 23:31 105/73 08/16/24 23:31 105/73 08/16/24 23:31 105/73 08/16/24 23:27 83 22 95 08/16/24 23:18 82 24 95 08/16/24 23:16 126/88 08/16/24 23:15 36.5 C 82 24 126/88 95 08/16/24 23:12 82 12 96 08/16/24 23:00 123/83 08/16/24 23:00 123/83 08/16/24 22:45 36.5 C 87 15 123/83 97 08/16/24 22:31 08/16/24 22:30 126/79 08/16/24 22:30 126/79 08/16/24 22:30 126/79 08/16/24 22:30 126/79 08/16/24 22:27 81 21 96 08/16/24 22:24 81 16 95 08/16/24 22:22 110/87 08/16/24 22:22 110/87 08/16/24 22:18 49 H 94 08/16/24 22:15 36.5 C 83 25 H 110/87 96 08/16/24 22:03 84 42 H 94 08/16/24 22:00 149/90 H 08/16/24 22:00 149/90 H 08/16/24 21:57 80 22 94 08/16/24 21:51 77 23 96 08/16/24 21:45 36.5 C 79 17 140/78 94 08/16/24 21:31 140/78 08/16/24 21:31 140/78 08/16/24 21:31 140/78 08/16/24 21:30 83 18 94 O2 Del Method 08/17/24 09:15 Room Air 08/17/24 08:15 Room Air 08/17/24 07:15 Room Air 08/17/24 07:05 08/17/24 06:45 08/17/24 06:45 08/17/24 06:39 08/17/24 06:31 08/17/24 06:31 08/17/24 06:27 08/17/24 06:15 Room Air 08/17/24 06:00 08/17/24 06:00 08/17/24 05:45 08/17/24 05:45 08/17/24 05:39 08/17/24 05:30 08/17/24 05:30 08/17/24 05:30 08/17/24 05:27 08/17/24 05:15 08/17/24 05:15 08/17/24 05:15 Room Air 08/17/24 05:12 08/17/24 05:00 08/17/24 05:00 08/17/24 04:45 08/17/24 04:42 08/17/24 04:30 08/17/24 04:30 08/17/24 04:30 08/17/24 04:30 08/17/24 04:24 08/17/24 04:15 Room Air 08/17/24 04:03 08/17/24 04:00 08/17/24 03:54 08/17/24 03:39 08/17/24 03:30 08/17/24 03:27 08/17/24 03:15 08/17/24 03:15 Room Air 08/17/24 03:09 08/17/24 03:00 08/17/24 03:00 08/17/24 03:00 08/17/24 02:51 08/17/24 02:48 08/17/24 02:45 08/17/24 02:42 08/17/24 02:39 08/17/24 02:30 08/17/24 02:15 Room Air 08/17/24 02:00 08/17/24 01:48 08/17/24 01:45 08/17/24 01:45 08/17/24 01:30 08/17/24 01:30 08/17/24 01:15 Room Air 08/17/24 01:15 08/17/24 01:15 08/17/24 01:15 08/17/24 01:00 08/17/24 01:00 08/17/24 00:54 08/17/24 00:46 08/17/24 00:45 Room Air 08/17/24 00:45 08/17/24 00:33 08/17/24 00:31 08/17/24 00:31 08/17/24 00:31 08/17/24 00:15 Room Air 08/17/24 00:15 08/17/24 00:09 08/17/24 00:03 08/17/24 00:00 08/17/24 00:00 08/16/24 23:48 08/16/24 23:46 08/16/24 23:46 08/16/24 23:46 08/16/24 23:45 Room Air 08/16/24 23:33 08/16/24 23:31 08/16/24 23:31 08/16/24 23:31 08/16/24 23:31 08/16/24 23:27 08/16/24 23:18 08/16/24 23:16 08/16/24 23:15 Room Air 08/16/24 23:12 08/16/24 23:00 08/16/24 23:00 08/16/24 22:45 Room Air 08/16/24 22:31 Room Air 08/16/24 22:30 08/16/24 22:30 08/16/24 22:30 08/16/24 22:30 08/16/24 22:27 08/16/24 22:24 08/16/24 22:22 08/16/24 22:22 08/16/24 22:18 08/16/24 22:15 Room Air 08/16/24 22:03 08/16/24 22:00 08/16/24 22:00 08/16/24 21:57 08/16/24 21:51 08/16/24 21:45 Room Air 08/16/24 21:31 08/16/24 21:31 08/16/24 21:31 08/16/24 21:30 Critical Care Results & Data Vital Signs (Past 12 Hours) Vital Signs Temp Pulse Pulse Resp BP BP Pulse Ox 08/17/24 09:15 84 18 128/62 93 08/17/24 08:15 95 H 16 111/77 94 08/17/24 07:15 90 15 133/76 95 08/17/24 07:05 85 08/17/24 06:45 132/88 08/17/24 06:45 90 22 90 08/17/24 06:39 86 14 94 08/17/24 06:31 124/95 08/17/24 06:31 124/95 08/17/24 06:27 86 29 H 92 08/17/24 06:15 36.5 C 86 29 H 124/95 92 08/17/24 06:00 110/80 08/17/24 06:00 90 15 08/17/24 05:45 126/75 08/17/24 05:45 126/75 08/17/24 05:39 83 18 94 08/17/24 05:30 87 15 93 08/17/24 05:30 128/76 08/17/24 05:30 128/76 08/17/24 05:27 85 16 93 08/17/24 05:15 119/85 08/17/24 05:15 119/85 08/17/24 05:15 36.5 C 79 27 H 119/85 93 08/17/24 05:12 79 27 H 93 08/17/24 05:00 139/86 08/17/24 05:00 83 19 88 L 08/17/24 04:45 131/78 08/17/24 04:42 88 15 93 08/17/24 04:30 100/82 08/17/24 04:30 100/82 08/17/24 04:30 100/82 08/17/24 04:30 81 14 91 08/17/24 04:24 85 13 91 08/17/24 04:15 36.5 C 81 14 100/82 91 08/17/24 04:03 86 18 92 08/17/24 04:00 121/85 08/17/24 03:54 82 15 92 08/17/24 03:39 95 08/17/24 03:30 121/82 08/17/24 03:27 92 08/17/24 03:15 127/94 08/17/24 03:15 36.5 C 82 20 127/94 92 08/17/24 03:09 93 08/17/24 03:00 117/91 08/17/24 03:00 117/91 08/17/24 03:00 117/91 08/17/24 02:51 85 12 93 08/17/24 02:48 84 14 93 08/17/24 02:45 120/90 08/17/24 02:42 90 14 94 08/17/24 02:39 85 17 93 08/17/24 02:30 122/87 08/17/24 02:15 36.5 C 85 17 122/87 93 08/17/24 02:00 120/82 08/17/24 01:48 87 18 94 08/17/24 01:45 137/87 08/17/24 01:45 81 16 91 08/17/24 01:30 113/89 08/17/24 01:30 82 16 08/17/24 01:15 36.5 C 79 15 137/86 91 08/17/24 01:15 79 15 91 08/17/24 01:15 137/86 08/17/24 01:15 137/86 08/17/24 01:00 122/80 08/17/24 01:00 122/80 08/17/24 00:54 80 18 95 08/17/24 00:46 117/87 08/17/24 00:45 36.5 C 83 24 117/84 95 08/17/24 00:45 83 23 08/17/24 00:33 81 21 94 08/17/24 00:31 126/80 08/17/24 00:31 126/80 08/17/24 00:31 126/80 08/17/24 00:15 36.5 C 83 17 136/86 94 08/17/24 00:15 136/86 08/17/24 00:09 83 17 94 08/17/24 00:03 89 14 97 08/17/24 00:00 83 08/17/24 00:00 124/80 08/16/24 23:48 87 28 H 96 08/16/24 23:46 112/80 08/16/24 23:46 112/80 08/16/24 23:46 112/80 08/16/24 23:45 36.5 C 88 21 105/73 95 08/16/24 23:33 85 20 97 08/16/24 23:31 105/73 08/16/24 23:31 105/73 08/16/24 23:31 105/73 08/16/24 23:31 105/73 08/16/24 23:27 83 22 95 08/16/24 23:18 82 24 95 10/15/24 23:16 126/88 08/16/24 23:15 36.5 C 82 24 126/88 95 08/16/24 23:12 82 12 96 08/16/24 23:00 123/83 08/16/24 23:00 123/83 08/16/24 22:45 36.5 C 87 15 123/83 97 08/16/24 22:31 08/16/24 22:30 126/79 08/16/24 22:30 126/79 08/16/24 22:30 126/79 08/16/24 22:30 126/79 08/16/24 22:27 81 21 96 08/16/24 22:24 81 16 95 08/16/24 22:22 110/87 08/16/24 22:22 110/87 08/16/24 22:18 49 H 94 08/16/24 22:15 36.5 C 83 25 H 110/87 96 08/16/24 22:03 84 42 H 94 08/16/24 22:00 149/90 H 08/16/24 22:00 149/90 H 08/16/24 21:57 80 22 94 08/16/24 21:51 77 23 96 08/16/24 21:45 36.5 C 79 17 140/78 94 08/16/24 21:31 140/78 08/16/24 21:31 140/78 08/16/24 21:31 140/78 08/16/24 21:30 83 18 94 O2 Del Method 08/17/24 09:15 Room Air 08/17/24 08:15 Room Air 08/17/24 07:15 Room Air 08/17/24 07:05 08/17/24 06:45 08/17/24 06:45 08/17/24 06:39 08/17/24 06:31 08/17/24 06:31 08/17/24 06:27 08/17/24 06:15 Room Air 08/17/24 06:00 08/17/24 06:00 08/17/24 05:45 08/17/24 05:45 08/17/24 05:39 08/17/24 05:30 08/17/24 05:30 08/17/24 05:30 08/17/24 05:27 08/17/24 05:15 08/17/24 05:15 08/17/24 05:15 Room Air 08/17/24 05:12 08/17/24 05:00 08/17/24 05:00 08/17/24 04:45 08/17/24 04:42 08/17/24 04:30 08/17/24 04:30 08/17/24 04:30 08/17/24 04:30 08/17/24 04:24 08/17/24 04:15 Room Air 08/17/24 04:03 08/17/24 04:00 08/17/24 03:54 08/17/24 03:39 08/17/24 03:30 08/17/24 03:27 08/17/24 03:15 08/17/24 03:15 Room Air 08/17/24 03:09 08/17/24 03:00 08/17/24 03:00 08/17/24 03:00 08/17/24 02:51 08/17/24 02:48 08/17/24 02:45 08/17/24 02:42 08/17/24 02:39 08/17/24 02:30 08/17/24 02:15 Room Air 08/17/24 02:00 08/17/24 01:48 08/17/24 01:45 08/17/24 01:45 08/17/24 01:30 08/17/24 01:30 08/17/24 01:15 Room Air 08/17/24 01:15 08/17/24 01:15 08/17/24 01:15 08/17/24 01:00 08/17/24 01:00 08/17/24 00:54 08/17/24 00:46 08/17/24 00:45 Room Air 08/17/24 00:45 08/17/24 00:33 08/17/24 00:31 08/17/24 00:31 08/17/24 00:31 08/17/24 00:15 Room Air 08/17/24 00:15 08/17/24 00:09 08/17/24 00:03 08/17/24 00:00 08/17/24 00:00 08/16/24 23:48 08/16/24 23:46 08/16/24 23:46 08/16/24 23:46 08/16/24 23:45 Room Air 08/16/24 23:33 08/16/24 23:31 08/16/24 23:31 08/16/24 23:31 08/16/24 23:31 08/16/24 23:27 08/16/24 23:18 08/16/24 23:16 08/16/24 23:15 Room Air 08/16/24 23:12 08/16/24 23:00 08/16/24 23:00 08/16/24 22:45 Room Air 08/16/24 22:31 Room Air 08/16/24 22:30 08/16/24 22:30 08/16/24 22:30 08/16/24 22:30 08/16/24 22:27 08/16/24 22:24 08/16/24 22:22 08/16/24 22:22 08/16/24 22:18 08/16/24 22:15 Room Air 08/16/24 22:03 08/16/24 22:00 08/16/24 22:00 08/16/24 21:57 08/16/24 21:51 08/16/24 21:45 Room Air 08/16/24 21:31 08/16/24 21:31 08/16/24 21:31 08/16/24 21:30 Lab & Micro Results (Past 24 Hours) RBC 4.46 M/uL (4.20-5.40) 08/16/24 WBC 5.77 K/ul (4.8-10.8) 08/16/24 Hgb 13.2 g/dl (12.0-16.0) 08/16/24 Hct 41.0 % (37.0-47.0) 08/16/24 MCV 91.9 fL (80.0-100.0) 08/16/24 MCH 29.6 pg (25.0-34.0) 08/16/24 MCHC 32.2 g/dL (32.0-36.0) 08/16/24 RDW Standard Deviation 50.2 fL (36.4-46.3) H 08/16/24 RDW Coefficient of Variation 14.9 % (11.5-14.5) H 08/16/24 Plt Count 185 K/uL (130-400) 08/16/24 MPV 12.2 fL (9.4-12.4) 08/16/24 Neutrophils (%) (Auto) 43.3 % 08/16/24 Lymphocytes (%) (Auto) 41.8 % 08/16/24 Monocytes # (Auto) 0.45 K/uL (0.11-0.59) 08/16/24 Eosinophils # (Auto) 0.34 K/uL (0.00-0.50) 08/16/24 Immature Granulocyte % (Auto) 0.3 % 08/16/24 Neutrophils # (Auto) 2.50 K/uL (1.40-6.50) 08/16/24 Lymphocytes # (Auto) 2.41 K/uL (1.20-3.40) 08/16/24 Monocytes # (Auto) 0.45 K/uL (0.11-0.59) 08/16/24 Eosinophils # (Auto) 0.34 K/uL (0.00-0.50) 08/16/24 Basophils # (Auto) 0.05 K/uL (0.00-0.20) 08/16/24 Immature Granulocyte # (Auto) 0.02 K/uL (0.01-0.20) 4 Na 139 mmol/L (136-145) 08/16/24 K 3.9 mmol/L (3.5-5.1) 08/16/24 Cl 107 mmol/L (98-107) 08/16/24 CO2 26 mmol/L (21-32) 08/16/24 Anion Gap 6 (3-11) 08/16/24 BUN 18 mg/dl (6-23) 08/16/24 Creatinine 0.88 mg/dl (0.6-1.2) 08/16/24 BUN/Creatinine Ratio 20.5 (10-20) H 08/16/24 Glu 90 mg/dl (70-99(Fasting)) 08/16/24 Ca 9.2 mg/dl (8.6-10.3) 08/16/24 Total Bilirubin 0.3 mg/dl (0.2-1.0) 08/16/24 AST 34 U/L (13-39) 08/16/24 ALT 33 U/L (7-52) 08/16/24 Alkaline Phosphatase 87 U/L (34-104) 08/16/24 TP 7.2 gm/dl (6.0-8.3) 08/16/24 Albumin 4.0 gm/dl (3.4-5.0) 08/16/24 Globulin 3.2 gm/dl (2.5-4.0) 08/16/24 Albumin/Globulin Ratio 1.3 (0.9-2) 08/16/24 Mg 1.8 mg/dl (1.7-2.4) 08/16/24 15:32 Calcium Level 9.2 mg/dl (8.6-10.3) 08/16/24 15:32 Prothromb Time International Ratio 1.0 (0.9-1.1) 08/16/24 15:3 2 Diagnostic Findings (Past 24 Hours) Chest X-Ray 08/16/24 15:14 SINGLE VIEW CHEST CLINICAL HISTORY: Atypical chest pain. FINDINGS: A PA chest radiograph is compared to chest x-ray and chest CT dated 01/15/2023. The cardiomediastinal silhouette is unremarkable. The lungs and pleural spaces are clear. No pneumothorax is seen. The bony thorax is grossly intact. Cholecystectomy clips are noted in the right upper quadrant. IMPRESSION: No active disease in the chest. ACT 112: Negative or not required by law. Electronically signed by: Sterling Terrazas M.D. 08/16/2024 3:[address] 08/16/24 16:13 CT SCAN OF THE BRAIN WITHOUT IV CONTRAST CLINICAL HISTORY: Strokelike symptoms. COMPARISON STUDY: CT of the brain dated 05/09/2023. TECHNIQUE: Unenhanced axial CT scan of the brain is performed from the vertex to the skull base. A dose lowering technique was utilized adhering to the principles of ALARA. FINDINGS: Brain parenchyma: There is age-related involutional change noted in moderate subcortical and periventricular microangiopathic disease. There is no hemorrhag e, mass effect, or evidence of acute territorial ischemia by CT criteria. Lea- white matter differentiation is preserved. No extra-axial fluid collection is seen. Ventricles, sulci, cisterns: Prominent secondary to involutional change. Intracranial vasculature: The visualized intracranial vasculature at the skull base is normal in appearance. Calvarium: Unremarkable. Sinuses and mastoids: The paranasal sinuses are clear. The mastoid air cells are well pneumatized. Orbits: The bony orbits are grossly intact. IMPRESSION: There is no hemorrhage, mass effect, or evidence of acute territorial ischemia by CT criteria. ACT 112: Negative or not required by law. Electronically signed by: Sterling Terrazas M.D. 08/16/2024 4:31 PM Head CTA 08/16/24 16:13 CT angio head w con CLINICAL HISTORY: cva TECHNIQUE: CT angiography of the head was performed following intravenous administration of iodinated contrast. Coronal and sagittal MIPS were obtained from the axial data set and were submitted for review. Automated dose lowering techniques and/or adjustment according to patient size were utilized for this examination. All measurements were calculated based on NASCET criteria. Comparison: Comparison is made to CTA head and neck 05/09/2023 FINDINGS: CTA Head: The anterior and posterior cerebral circulations are patent. origin of the bilateral posterior cerebral arteries noted. IMPRESSION: No occlusion, hemodynamically significant stenosis, aneurysm, dissection, or arteriovenous malformation in the major intracranial arteries. Assessment of stenosis of the internal carotid arteries is based on NASCET criteria. ACT 112: Negative or not required by law. Electronically signed by: Feng Perez M.D. 08/16/2024 4:30 PM Neck CTA 08/16/24 16:13 CT ANGIOGRAM OF THE NECK CLINICAL HISTORY: Strokelike symptoms. COMPARISON STUDY: CT of the neck dated 02/29/2024. TECHNIQUE: Following the IV administration of 119 of Optiray 320, CT angiogram of the neck was performed from the aortic arch to the skull base. Images are rev iewed in the axial, sagittal, and coronal planes. 3-D MIPS images are created and assessed. IV contrast was administered without complication. All measurements were calculated based on NASCET criteria. A dose lowering technique was utilized adhering to the principles of ALARA. CT DOSE: 1026.94 mGy.cm FINDINGS: Thoracic aorta: There is mild atherosclerotic calcification of the thoracic aorta. Visualized portions of the thoracic aorta are normal in caliber. The aortic arch demonstrates 4-vessel variant anatomy. An aberrant right subclavian artery arises as a fourth branch and courses posterior to the esophagus. Right carotid arterial system: The right common carotid artery is widely patent, as are the right internal and external carotid arteries. Calcified plaque is seen in the carotid bulb. Left carotid arterial system: The left common carotid artery is widely patent, as are the left internal and external carotid arteries. Calcified plaque is noted in the carotid bulbs. Vertebral arteries: There is high-grade stenosis at the origin of the left vertebral artery seen on axial image #69. The vertebral arteries are otherwise patent bilaterally noting mild left-sided dominance. Subclavian arteries: Widely patent bilaterally. Intracranial vasculature: The visualized intracranial vessels at the skull base are patent. Jugular veins: Patent bilaterally. Brain parenchyma: The visualized brain parenchyma the skull base is within normal limits. Lung apices: Partially visualized upper lobe lung parenchyma appears clear. Soft tissues: The visualized pharyngeal soft tissues are normal in appearance noting angiographic phase technique. The oropharyngeal airway appears widely patent. The salivary and thyroid glands are normal in appearance. No cervical lymphadenopathy is seen. Skeletal structures: The visualized calvarium at the skull base appears intact. The imaged cervical spine is maintained noting mild multilevel spondylosis. Sinuses and mastoids: The visualized paranasal sinuses are clear. The mastoid air cells are well pneumatized. IMPRESSION: 1. There is high-grade focal stenosis at the origin of the left vertebral artery. 2. Otherwise unremarkable CT angiogram of the neck. 3. Aberrant right subclavian artery is incidentally noted. ACT 112: Negative or not required by law. Electronically signed by: Sterling Terrazas M.D. 08/16/2024 4:36 PM Brain MRI 08/16/24 18:11 Exam(s): MRI HEAD Without Contrast EXAM: MR Head Without Intravenous Contrast CLINICAL HISTORY: Reason for exam: cva post tnkase. TECHNIQUE: Magnetic resonance images of the head/brain without intravenous contrast in multiple planes. COMPARISON: CT head, 08/16/24 FINDINGS: Brain: No diffusion restriction to suggest acute cerebral ischemia. No acute intracranial hemorrhage. No mass-effect or midline shift. Parenchymal volume normal for age. Periventricular and deep cerebral white matter FLAIR signal hyperintensity consistent with mild to moderate chronic small vessel ischemic change. Partially empty sella turcica. Ventricles: Unremarkable. No hydrocephalus. Bones/joints: Unremarkable. No acute fracture. Sinuses: Unremarkable as visualized. Mastoid air cells: Unremarkable as visualized. No mastoid effusion. Orbits: Unremarkable as visualized. IMPRESSION: No acute findings in the head/brain. No evidence of intracranial hemorrhage. Electronically signed by: Shira Veras M.D. 08/16/24 20:56 PM I & O Totals 24 Hours 08/16/24 08/17/24 08/18/24 06:59 06:59 06:59 Intake Total 200 / 600 400 / 400 Output Total 500 / 500 Balance -300 / 100 400 / 400 Cumulative 08/16/24 15:07 thru 08/17/24 08:48 Intake Total 600 Output Total 500 Balance 100 RT Ventilator Mngmt (Last Documented) Ventilator Ordered Settings Respiratory Rate 18 08/17/24 09:15 Ventilator - PT Measurements Respiratory Rate 18 Coding Level of Care Code 52739 SUB INP/OBS CARE 2/35MIN Diagnoses Stroke-like symptoms R29.90
--- NOTE | 2024-08-17 10:37 | Electrocardiogram Report ---
Test Reason : Blood Pressure : */* mmHG Vent. Rate : 86 BPM Atrial Rate : 86 BPM P-R Int : 158 ms QRS Dur : 78 ms QT Int : 366 ms P-R-T Axes : 23 -5 36 degrees QTcB Int : 437 ms Sinus rhythm with Premature atrial complexes Poor R wave progression, consider anterior CA vs. lead placement vs. LVH Abnormal ECG When compared with ECG of 15-Jan-2023 13:46, Premature atrial complexes are now Present Confirmed by Jimenez Calderon ([id number]) on 08/17/2024 10:37:22 AM Referred By: REFERRED SELF Confirmed By: Jimenez Calderon
--- NOTE | 2024-08-17 10:43 | Neurology Consultation ---
Date of Consultation August 17, 2024 Assessment & Plan (1) Stroke-like symptoms: (2) Complicated migraine: Plan 63-year-old female presenting with what seems most consistent with an expanding migrainous aura affecting the far left visual field, followed by migrainous headache and associated nausea, as well as left-sided weakness. Given the acuity of her presentation and associated neurologic signs and symptoms, however, she did have a telestroke consultation and was treated with TNKase. Her symptoms are significantly improved this morning although she still has a subtle degree of giveaway weakness for the left arm and leg. Patient's brain MRI does not reveal any evidence of acute or subacute stroke. She does have a moderate degree of confluent microvascular ischemic change. 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 This finding is of unlikely clinical significance. Although her presenting episode seems most consistent with complicated migraine, a TIA cannot be completely excluded. Would recommend aspirin 81 mg/day beginning 24 hours after administration of TNKase. Patient will need a follow-up noncontrast CT of the head today to reassess for interval development of hemorrhage. Continue to monitor patient's blood pressure per protocol. Although her lipid panel looks normal without statin therapy, I agree with starting rosuvastatin as ordered given that she does have a high-grade vertebral artery stenosis. Goal LDL 70 or less going forward. Follow-up with results of echocardiogram. Consider obtaining mobile cardiac outpatient telemetry as well. Patient may continue with topiramate for migraine prevention. If a medication is required for acute migraine treatment as an outpatient, [facility] or Ubrelvy would be preferred in this patient. Consultations with PT/OT/speech therapy. Please call with any questions. History of Present Illness Reason for Consultation: Strokelike episode, status post TNKase Requesting Physician: [place] Attending Physician: Batsheva Donohue MD History of Present Illness The patient is a 63-year-old female who presented to the emergency department yesterday afternoon with a chief complaint of left-sided vision disturbance followed by headache, nausea, and left-sided weakness. The symptoms began around 1:45 PM, initially characterized by a fluttering vision disturbance affecting the far left periphery of the left eye only. The vision disturbance expanded a bit and moved a little more centrally. There was no actual vision loss. She soon developed nausea and a global headache followed by a feeling of weakness affecting the left leg and arm. She does endorse a history of migraine with aura and reports some similarity to these episodes although she has never had associated hemiparesis. Her last migraine episode occurred about 6 months ago. History also notable for CML in remission, subsequent development of peripheral neuropathy. No prior history of stroke, TIA, or seizure. A CT of the head was negative for hemorrhage or acute process. A CTA of the head and neck revealed a high-grade focal stenosis at the origin of the left vertebral artery. No other vascular abnormalities identified. Given patient's acuity of presentation, neurologic signs and symptoms, she did have a telestroke consultation and was treated with TNKase. She did have a follow-up brain MRI completed last night which was negative for acute or subacute process. I did independently review these images. There is fairly extensive confluent periventricular and deep white matter hyperintensity in both cerebral hemispheres, more so posteriorly. This finding may represent age advanced chronic microvascular ischemic disease. This morning, the patient reports considerable improvement in her symptoms although she continues to perceive a mild degree of weakness affecting the left arm and leg. No headache or vision disturbance. Allergies Allergy/AdvReac Type Severity Reaction Status Date / Time No Known Allergies Allergy Verified 02/29/24 01:02 Home Medications Medication Instructions Recorded Confirmed Type celecoxib 200 mg capsule 200 mg PO DAILY Pain 01/15/23 08/16/24 History famotidine 20 mg tablet 20 mg PO BID 01/15/23 08/16/24 History gabapentin 800 mg tablet 800 mg PO TID 01/15/23 08/16/24 History omeprazole 40 mg capsule,delayed 40 mg PO BID 01/15/23 08/16/24 History release doxepin 100 mg capsule 150 mg PO HS PRN Sleep 02/29/24 08/16/24 History furosemide 40 mg tablet 40 - 80 mg PO DAILY PRN EDEMA PER 02/29/24 08/16/24 History PT hydroxyzine pamoate 25 mg capsule 25 mg PO Q6H PRN Anxiety 02/29/24 08/16/24 History lamotrigine 25 mg tablet 50 mg PO HS 02/29/24 08/16/24 History topiramate 25 mg tablet 50 mg PO BID 02/29/24 08/16/24 History trazodone 100 mg tablet 100 mg PO HS PRN Sleep 02/29/24 08/16/24 History brexpiprazole 1 mg tablet (Rexulti) 1 mg PO DAILY 08/16/24 08/16/24 History doxycycline hyclate 100 mg capsule 100 mg PO DAILY 08/16/24 08/16/24 History duloxetine 60 mg capsule,delayed 60 mg PO DAILY 08/16/24 08/16/24 History release Patient History Medical History Neuropathy Heart attack 1997. no stents or heart failure GERD (gastroesophageal reflux disease) CML (chronic myelocytic leukemia) Surgical History History of incision and drainage (02/29/24) Submantal Chin Abscess Incision and Drainage(Not Applicable) - Flex Ma, AIME Family History Mother Cancer Colorectal cancer Heart disease Hypertension Stroke Father Cancer Heart disease Hypertension Stroke Social History Smoking Status: Never smoker Second Hand Exposure: No; Do You Dip or Chew Tobacco: No; Hx Alcohol Use: Yes Alcohol type: hard liquor Hx Substance Use: No Preferred Language: [place]ian Communication Ability: Effective Fisher Hoop Net Required: No Beliefs That Will Affect Care: None marital status: Current Living Situation: Significant Other current occupational status: unemployed and disabled How many Children do You have: 3 How many Children do You have Comment: 1 Other Information That Helps Us Care for You: No Feels Safe at Home: Yes Safety Concerns: Feels Safe At This Time Diet: regular during the past year weight has: remained stable Assistive Devices: Glasses Review of Systems Constitutional: no fever and no chills Eyes: as per Subjective / HPI Ear, Nose, Mouth, Throat: no hearing loss Respiratory: no cough and no dyspnea Cardiovascular: no chest pain and no palpitations Gastrointestinal: no nausea and no vomiting Genitourinary: no dysuria Musculoskeletal: no myalgia Integumentary: no rash and no lesions Neurologic: as per Subjective / HPI, + localized weakness and + paresthesia; no abnormal speech and no memory loss Psychiatric: + anxiety; no depression Hematologic / Lymphatic: no easy bleeding and no easy bruising Exam (Neuro) Constitutional: well developed and well nourished; no acute distress Eyes: normal visual mendoza by confrontation, PERRL and EOM intact bilaterally; no nystagmus Neurologic: Oriented to:: Person, Place and Time Memory: Short Term Intact and Remote Intact Attention: Span Intact and Concentration Intact Speech Fluency: negative Dysarthria or Dysfluency Speech Aphasia: negative Aphasia Fund of Knowledge: Current Events, Past History and Vocabulary Cranial Nerves: Normal II, III, IV, , V, VII, VIII, IX, X, XI and XII Motor Strength: Normal Lower Extremities and Normal Upper Extremities Motor Tone: Normal Lower Extremities and Normal Upper Extremities Muscle Bulk/Involuntary Movements: No Involuntary Movements; negative Muscle Atrophy Sensation: Light Touch Intact, Pain/Temperature Intact, Vibration Intact and Proprioception Intact Coordination: Finger-Nose Abnormal Laterality: Left and Heel-Nunn Abnormal Laterality: Left; negative Dysdiadochokinesia Deep Tendon Reflexes: Rt Triceps: 2+, Lt Triceps: 2+, Rt Biceps: 2+, Lt Biceps: 2+, Rt Brachi oradialis: 2+, Lt Brachioradialis: 2+, Rt Patellar: 2+, Lt Patellar: 2+, Rt Ankle: 1+ and Lt Ankle: 1+ Special Tests: negative Babinski Present Details: Patient exhibits very mild giveaway weakness for the left arm and leg. No fix with arm roll on the left. Results & Data Vital Signs (Past 12 Hours) Vital Signs Temp Pulse Pulse Resp BP BP Pulse Ox 08/17/24 10:15 79 14 121/77 91 08/17/24 09:15 84 18 128/62 93 08/17/24 08:15 95 H 16 111/77 94 08/17/24 07:15 90 15 133/76 95 08/17/24 07:05 85 08/17/24 06:45 132/88 08/17/24 06:45 90 22 90 08/17/24 06:39 86 14 94 08/17/24 06:31 124/95 08/17/24 06:31 124/95 08/17/24 06:27 86 29 H 92 08/17/24 06:15 36.5 C 86 29 H 124/95 92 08/17/24 06:00 110/80 08/17/24 06:00 90 15 08/17/24 05:45 126/75 08/17/24 05:45 126/75 10/16/24 05:39 83 18 94 08/17/24 05:30 87 15 93 08/17/24 05:30 128/76 08/17/24 05:30 128/76 08/17/24 05:27 85 16 93 08/17/24 05:15 119/85 08/17/24 05:15 119/85 08/17/24 05:15 36.5 C 79 27 H 119/85 93 08/17/24 05:12 79 27 H 93 08/17/24 05:00 139/86 08/17/24 05:00 83 19 88 L 08/17/24 04:45 131/78 08/17/24 04:42 88 15 93 08/17/24 04:30 100/82 08/17/24 04:30 100/82 08/17/24 04:30 100/82 08/17/24 04:30 81 14 91 08/17/24 04:24 85 13 91 08/17/24 04:15 36.5 C 81 14 100/82 91 08/17/24 04:03 86 18 92 08/17/24 04:00 121/85 08/17/24 03:54 82 15 92 08/17/24 03:39 95 08/17/24 03:30 121/82 08/17/24 03:27 92 08/17/24 03:15 127/94 08/17/24 03:15 36.5 C 82 20 127/94 92 08/17/24 03:09 93 08/17/24 03:00 117/91 08/17/24 03:00 117/91 08/17/24 03:00 117/91 08/17/24 02:51 85 12 93 08/17/24 02:48 84 14 93 08/17/24 02:45 120/90 08/17/24 02:42 90 14 94 08/17/24 02:39 85 17 93 08/17/24 02:30 122/87 08/17/24 02:15 36.5 C 85 17 122/87 93 08/17/24 02:00 120/82 08/17/24 01:48 87 18 94 08/17/24 01:45 137/87 08/17/24 01:45 81 16 91 08/17/24 01:30 113/89 08/17/24 01:30 82 16 08/17/24 01:15 36.5 C 79 15 137/86 91 08/17/24 01:15 79 15 91 08/17/24 01:15 137/86 08/17/24 01:15 137/86 08/17/24 01:00 122/80 08/17/24 01:00 122/80 08/17/24 00:54 80 18 95 08/17/24 00:46 117/87 08/17/24 00:45 36.5 C 83 24 117/84 95 08/17/24 00:45 83 23 08/17/24 00:33 81 21 94 08/17/24 00:31 126/80 08/17/24 00:31 126/80 08/17/24 00:31 126/80 08/17/24 00:15 36.5 C 83 17 136/86 94 08/17/24 00:15 136/86 08/17/24 00:09 83 17 94 08/17/24 00:03 89 14 97 08/17/24 00:00 83 08/17/24 00:00 124/80 08/16/24 23:48 87 28 H 96 08/16/24 23:46 112/80 08/16/24 23:46 112/80 08/16/24 23:46 112/80 08/16/24 23:45 36.5 C 88 21 105/73 95 08/16/24 23:33 85 20 97 08/16/24 23:31 105/73 08/16/24 23:31 105/73 08/16/24 23:31 105/73 08/16/24 23:31 105/73 08/16/24 23:27 83 22 95 08/16/24 23:18 82 24 95 08/16/24 23:16 126/88 08/16/24 23:15 36.5 C 82 24 126/88 95 08/16/24 23:12 82 12 96 08/16/24 23:00 123/83 08/16/24 23:00 123/83 08/16/24 22:45 36.5 C 87 15 123/83 97 08/16/24 22:31 08/16/24 22:30 126/79 08/16/24 22:30 126/79 08/16/24 22:30 126/79 08/16/24 22:30 126/79 08/16/24 22:27 81 21 96 08/16/24 22:24 81 16 95 08/16/24 22:22 110/87 08/16/24 22:22 110/87 O2 Del Method 08/17/24 10:15 Room Air 08/17/24 09:15 Room Air 08/17/24 08:15 Room Air 08/17/24 07:15 Room Air 08/17/24 07:05 08/17/24 06:45 08/17/24 06:45 08/17/24 06:39 08/17/24 06:31 08/17/24 06:31 08/17/24 06:27 08/17/24 06:15 Room Air 08/17/24 06:00 08/17/24 06:00 08/17/24 05:45 08/17/24 05:45 08/17/24 05:39 08/17/24 05:30 08/17/24 05:30 08/17/24 05:30 08/17/24 05:27 08/17/24 05:15 08/17/24 05:15 08/17/24 05:15 Room Air 08/17/24 05:12 08/17/24 05:00 08/17/24 05:00 08/17/24 04:45 08/17/24 04:42 08/17/24 04:30 08/17/24 04:30 08/17/24 04:30 08/17/24 04:30 08/17/24 04:24 08/17/24 04:15 Room Air 08/17/24 04:03 08/17/24 04:00 08/17/24 03:54 08/17/24 03:39 08/17/24 03:30 08/17/24 03:27 08/17/24 03:15 08/17/24 03:15 Room Air 08/17/24 03:09 08/17/24 03:00 08/17/24 03:00 08/17/24 03:00 08/17/24 02:51 08/17/24 02:48 08/17/24 02:45 08/17/24 02:42 08/17/24 02:39 08/17/24 02:30 08/17/24 02:15 Room Air 08/17/24 02:00 08/17/24 01:48 08/17/24 01:45 08/17/24 01:45 08/17/24 01:30 08/17/24 01:30 08/17/24 01:15 Room Air 08/17/24 01:15 08/17/24 01:15 08/17/24 01:15 08/17/24 01:00 08/17/24 01:00 08/17/24 00:54 08/17/24 00:46 08/17/24 00:45 Room Air 08/17/24 00:45 08/17/24 00:33 08/17/24 00:31 08/17/24 00:31 08/17/24 00:31 08/17/24 00:15 Room Air 08/17/24 00:15 08/17/24 00:09 08/17/24 00:03 08/17/24 00:00 08/17/24 00:00 08/16/24 23:48 08/16/24 23:46 08/16/24 23:46 08/16/24 23:46 08/16/24 23:45 Room Air 08/16/24 23:33 08/16/24 23:31 08/16/24 23:31 08/16/24 23:31 08/16/24 23:31 08/16/24 23:27 08/16/24 23:18 08/16/24 23:16 08/16/24 23:15 Room Air 08/16/24 23:12 08/16/24 23:00 08/16/24 23:00 08/16/24 22:45 Room Air 08/16/24 22:31 Room Air 08/16/24 22:30 08/16/24 22:30 08/16/24 22:30 08/16/24 22:30 08/16/24 22:27 08/16/24 22:24 08/16/24 22:22 08/16/24 22:22 Laboratory Results WBC 5.77, hemoglobin 13.2, hematocrit 41.0, MCV 91.9, platelet count 185, sodium 139, potassium 3.9, BUN 18, creatinine 0.88, glucose 90, hemoglobin A1c 5.6, calcium 9.2, magnesium 1.8, AST 34, ALT 33, triglycerides 73, cholesterol 137, LDL 75, VLDL 15, HDL 47, TSH 1.092 Diagnostic Findings Electrocardiogram revealed a sinus rhythm with PACs. Coding Level of Care Code 37271 INT INP/OBS CARE MIN Diagnoses Stroke-like symptoms R29.90 Complicated migraine G43.109 Time Spent (min) 90 Comment Total time includes patient contact, chart review, counseling, note preparation
--- NOTE | 2024-08-17 10:54 | XCELERA ---
[id number] \\[email or web address]_[id number]_[id number]
--- NOTE | 2024-08-17 14:32 | Discharge Summary ---
<Statement entered by Batsheva Donohue MD - 08/17/24 19:02> I have reviewed vital signs, chart notes, labs and imaging. I have personally seen, evaluated and examined the patient. I have also discussed the management of the patient with the ARTHUR and I agree with the exam findings documented in the history and physical examination and the documented assessment and plan unless otherwise stated below. Physical examination is unremarkable for me. Probably complex migraine which has resolved, possibility of TIA exists, she does have a left vertebral stenosis. echo without thrombus or significant valvular disease however she does have severe concentric LVH which is unexplained, she has some history of hypertension but it does not look like it has been severe and she is not on any medication for this and is normotensive. She is not known to have arrhythmia she does not have aortic stenosis. repeat head CT tonight 24 hours post thrombolytics with no acute changes, okay for discharge home - Follow-up with neurology clinic for possible complex migraine - aspirin and statin started for ASCVD, vertebral artery stenosis - referral made to cardiology for evaluation of severe LVH unknown etiology - referral made for ambulatory cardiac monitoring Discharge Summary Date of Service August 17, 2024 Principal Dx & Hospital Course #1 = Principal Diagnosis (1) Stroke-like symptoms: 63-year-old F with PMHx CML, GERD, migraine, and PUD who had presented with LEFT upper extremity/LEFT lower extremity weakness and visual disturbance (left). No history of smoking. - Telestroke- TNKase given at 1646 hrs on 08/16 - Start aspirin 81 mg daily; DO NOT START UNTIL 08/18 - Persisting mild asymmetric LUE + LLE weakness compared to the right on re-exam (08/17); has significantly improved. - CThead (08/16): No acute findings; [address]-head (08/17): No acute findings - CTA head/neck: High-grade focal stenosis at left vertebral artery origin. No acute findings - Chest XR and Cardiac workup was WNL (EKG, troponin) - Echocardiogram: EF >= 70%, LVH, grade 1 diastolic dysfunction, right ventricle dilation - Cholesterol panel within normal limits, however given recent findings of narrowing of the vertebral artery, continue rosuvastatin. Consider possible increase of dose in outpatient setting. - Neurology consulted; recommends starting ASA 81 mg daily and continuation of rosuvastatin; symptoms suggestive of complex migraine compared to acute/subacute stroke. - Follow-up outpatient with neurology regarding acute migraine treatment (Nurtec or Ubrelvy). Continue Topiromate. 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 - Does not know what she was treated with but did have a PICC line and received IV infusions that year. - Treated at [facility]. Records requested. Does not remember physicians name, reports she does not need ongoing medications for this. (3) GERD (gastroesophageal reflux disease): GERD Continue Protonix for GI protection. Pepcid held during hospital stay. (4) Heart attack: Reports she had an PA in the s but was never placed on aspirin or Plavix. Not on a beta-candice. Denies h/o heart failure, is on Lasix for lower extremity edema as needed. - EKG: Sinus with PACs. V1/V2 inverted T waves. V2 T wave changes new compared to 2022. Troponin normal. No chest pain throughout hospital course. - Echo: EF >= 70%, LVH, grade 1 diastolic dysfunction, right ventricle dilation; no evidence of acute clot (5) Anxiety: Anxiety/mood disorder; Stable - Continue Rexulti, Topamax, duloxetine - QT is not prolonged (6) Migraine: H/o ophthalmoplegic migraine, on Topamax outpatient - Reports symptoms during hospital course are different in nature than her typical migraines which occur ~ once q6 months. - Normal aura: silver zig-zag lines in vision, +/- loss of peripheral vision, then headache Plan Dispo: Medically stable for discharge, discharge today VTE prophylaxis: Held 2/2 TNKase provided on 08/16 Code: Full Notes For Next Care Provider Medication Changes From Visit Start aspirin 81 mg daily starting on 08/18. ? Ubrelvy or Nurtec Admission HPI Per Admitting Provider Fabiana is a 63-year-old female with a past medical history of CML, GERD, migraine, peptic ulcer disease who presented with onset of left lateral eye v isual deficits, left upper extremity and left lower extremity heaviness at approximately 1:45 PM. She was evaluated in the ER, given TNKase per telestroke recommendations and was recommended for admission for post TNK protocol. Per signout on ER provider evaluation +RLE drift and some RUE poor coordination. Patient was seen at 1600, stroke alert was activated on telestroke consultation TNKase was recommended and given at 1646 hrs. Patient seen at the bedside. She reports that at 145 she was in her normal state of health and had not been ill or feeling poorly prior when she was folding close and suddenly had left eye peripheral vision blurriness. She then had a gradual wave of nausea, and onset of left upper and left lower extremity weakness. She also had tingling in her left upper extremity. BP was elevated 220/110 by home BP cuff, this improved by time of ER assessment. She reports her vision gradually improved with rest after about 15 minutes but continued to have left-sided weakness and had to crawl up the stairs to get to the main floor of her house. Subsequently presented to the ER and she felt her weakness gradually improved however still has some residual weakness in her left leg and poor coordination in her left arm, and endorses some qualitative tingling in her left arm. Her vision she feels is almost completely back to normal. She endorses a history of CML treated with oral chemo from 21 09-2012. She does not know what this was treated with however notes that she had resultant pulmonary hypertension which was treated with IV infusions from - with pulmonary pressures that had subsequently normalized. Records requested from [facility] and [facility]. She denies any history of prior stroke or mini strokes. She reports she was told many years ago that she had a heart attack but was never put on a beta-candice [place] or Plavix. She denies any history of heart failure although does take Lasix for swelling as needed. No recent chest pain chest pressure or orthopnea. She does endorse a history of migraines which she reports have a different quality and have never been associated with any type of weakness or tingling. She does not use tobacco products, does not drink alcohol Denies medication allergies Reports she did take her normal medications this morning Full code Admission Exam Per Admitting Provider General: A&Ox3. NAD. Cooperative. HEENT: Atraumatic, normocephalic. Pulm: CTAB A&P. -wheezes, -rales, -rhonchi. Symmetrical chest rise. No increased work of breathing. No respiratory distress. Cardiac: RRR, -mrg. Radial pulses intact and symmetrical. Abdominal: Nontender, nondistended, soft. BS present. CRANIAL NERVES: II: Pupils equal and reactive, no relative afferent pupillary defect, no VF cuts III, IV, : EOM intact, no gaze preference or deviation, no nystagmus. V: normal sensation in V1, V2, and V3 segments bilaterally VII: no asymmetry, no nasolabial fold flattening VIII: normal hearing to speech IX, X: normal palatal elevation, no uvular deviation XI: 5/5 head turn and 5/5 shoulder shrug bilaterally XII: midline tongue protrusion MOTOR: RUE: 5/5 Shoulder internal rotation, external rotation, flexion, extension, abduction, adduction 5/5 Elbow flexion/extension, wrist flexion/extension 5/5 head waitress strength LUE: 5/5 strength to head waitress strength, elbow flexion/extension, shoulder flexion/internal rotation/external rotation but is qualitatively weaker compared to the right and fatigues easily RLE: 5/5 to hip flexion, knee extension, ankle dorsiflexion/plantarflexion LLE: 5/5 strength grossly to hip flexion, knee extension, ankle dorsiflexion/plantarflexion but qualitatively weaker compared to the right, fatigues easily, and has some asymmetric right hip drift on testing SENSORY: Station intact to soft touch in the hands and feet bilaterally, some qualitative tingling/paresthesia of the left upper extremity to soft touch COORD: Normal [id number] on the right. Slight dysmetria of the left upper extremity and left lower extremity on finger-nose and [id number] Discharge Exam General: No acute distress, well developed. Eyes: PERRL, conjunctivae clear, sclera non-icteric; EOM intact Neck: Supple, no LAD; no JVD Cardio: RRR, no M/G/R, S1 and S2 normal Resp: Chest wall symmetric, normal respiratory effort; No respiratory distress, Lungs CTA in all lobes bilaterally, no wheezes, rales, or rhonchi Abdomen: Soft, symmetric, nontender; No masses or hepatosplenomegaly MSK: No deformities, strength equal and symmetric, full ROM throughout; sensation normal to UE/LE. Pulses palpable and equal Neuro: Awake, alert; Muscle strength 5/5 bilaterally in RUE/RLE; Sensation intact bilaterally; CN II-XII intact; Mild weakness noted to LUE/LLE; completes [id number]-dh-[id number] testing and wtpw-ic-[id number], very minimal dysmetria on L side. Psych: Appropriate mood and affect; good judgement and insight. Discharge Plan Discharge Items Patient Disposition: Home - Self-Care Reason For Visit: LUE/LLE CV SX, POST-TNKASE Discharge Diagnosis: Complex migraine Stroke r/o Condition on Discharge: Serious Activity: Resume your previous activity Non-emergency contact: Primary Care Provider and Neurologist Call non-emergency contact if: you have any medication questions and your symptoms worsen Follow-up/Referrals: Aure Vieira PA-C [Primary Care Provider] - Diet: Regular Addtl Attending Provider Instructions: You were diagnosed and treated for a complex migraine which presented as strokelike symptoms including weakness to the left arm and left leg, as well as visual disturbances to the left eye, in the lateral field. Telestroke neurologist recommended thrombolytics and admission because of possibillity of stroke Imaging of the head/brain/neck and chest revealed no acute findings suggestive of acute stroke or subacute etiology. However, CTA of the neck did reveal high- grade narrowing of the left vertebral artery. Echocardiogram revealed no evidence of a clot. Repeat head CT without acute findings, stable. You were given TNKase at the start of your admission for suspected stroke. Medication was provided and tolerated. Discussion with neurology provided the following recommendations: Start aspirin 81 mg every day (do not take first dose until 08/18), follow-up outpatient with neurology to discuss starting acute migraine treatment such as Nurtec or Ubrelvy. Continue on medications for migraine prevention to include topiramate. Please follow-up with outpatient neurology as scheduled as well as outpatient follow-up for cardiac monitoring. Echocardiogram of the heart did reveal enlargement of the left lower chamber (concentric left ventricular hypertrophy) as well as dilation of the right ventricle. Recommend outpatient follow-up with cardiology. We also made referral for heart rhythm monitor to check for Afib or other arrhythmias. the clinic should be calling you to schedule If you notice increased pain, worsening of symptoms, or any component of the BE FAST acronym, please call your PCP for advice or return to the ED immediately. Balance (trouble standing or walking), Eyes (trouble with vision), Face (facial droop), Arm (weakness/numbness/drifting of arm), Speech (trouble speaking), Time (act fast- go to ED). Addtl [place] Provider Instructions: Risk Factors for Stroke: You can reduce your chances of stroke by working with your medical provider to adopt a healthy lifestyle. Some specific ways to lower your chance of stroke are: * If you are a smoker, now is the time to stop smoking cigarettes * If you are diabetic, improve the control of your blood sugars * Avoid excessive amounts of alcohol * Control high blood pressure * Lose weight if you are overweight * Be sure to lead an active lifestyle * Eat a healthy diet low in salt, cholesterol and fat You should know about other risk factors for stroke that you are unable to control. These include: * Age 55 years or older * Male gender * Certain racial groups: , or / * Family History of Stroke, Mini stroke or Heart Attack * Sickle Cell Disease Follow Up: It is important for you to keep your follow up appointments with your medical provider. Who to Call and When: Medical Emergencies: Call 911 immediately if you experience any of the follow ing warning signs and symptoms of Stroke: * Sudden numbness or weakness of the face, arm or leg, especially on one side of the body * Sudden confusion, trouble speaking or understanding * Sudden trouble seeing in one or both eyes * Sudden trouble walking, dizziness, loss of balance or coordination * Sudden severe headache with no cause Do not delay calling 911 if you experience any warning signs or symptoms of a stroke. Delay in seeking medical attention may affect what treatments can be given to you. Pending Studies at Discharge: No Stand-Alone Forms: [facility], Smoking Cessation, Medications to Prevent Stroke Medications and DC Order Prescriptions: New rosuvastatin 20 mg Tablet 20 mg PO QAM 30 Days Qty: 30 0RF aspirin 81 mg capsule 81 mg PO DAILY Qty: 30 0RF Rx Instructions: Start 08/18. Continued celecoxib 200 mg capsule 200 mg PO DAILY omeprazole 40 mg capsule,delayed release(DR/EC) 40 mg PO BID famotidine 20 mg tablet 20 mg PO BID gabapentin 800 mg tablet 800 mg PO TID furosemide 40 mg tablet 40 - 80 mg PO DAILY PRN (Reason: EDEMA PER PT) topiramate 25 mg tablet 50 mg PO BID lamotrigine 25 mg tablet 50 mg PO HS trazodone 100 mg tablet 100 mg PO HS PRN (Reason: Sleep) doxepin 100 mg capsule 150 mg PO HS PRN (Reason: Sleep) hydroxyzine pamoate 25 mg capsule 25 mg PO Q6H PRN (Reason: Anxiety) doxycycline hyclate 100 mg capsule 100 mg PO DAILY duloxetine 60 mg capsule,delayed release(DR/EC) 60 mg PO DAILY Rexulti 1 mg tablet 1 mg PO DAILY Discharge Orders: Discharge Order (Routine); Ordered 08/17/24 Ordered By: Batsheva Mcbride/Other Patient Handouts: What Is a TIA? Admission Data Admit Date/Time: 08/16/24 17:32 Attending Provider: Batsheva Donohue Admit Provider: Natanael Briggs Primary Care Provider: Aure Vieira Other Providers: Natanael Briggs; Anderson Dugan; Benny Medina Other Interventions: Discharge Summary Assessment (RN) Last Done: 08/17/24 12:07 Hospital Stay Data Consultations 08/16/24 16:49 ED Decision to Admit Stat 08/16/24 18:11 Consult Manager Database Administration Routine Consult Neurology Routine Diagnostic Imagining Performed 08/16/24 16:13 CT angio head w con Stat CT angio neck with con Stat CT head/brain wo con Stat 08/16/24 18:11 MR brain wo con Routine 08/17/24 18:00 CT head/brain wo con Stat Pending Results Patient Have Any Pending Studies at Discharge: No Discharge Instructions Given to Patient (Per Discharging Provider) You were diagnosed and treated for a complex migraine which presented as strokelike symptoms including weakness to the left arm and left leg, as well as visual disturbances to the left eye, in the lateral field. Telestroke neurologist recommended thrombolytics and admission because of possibillity of stroke Imaging of the head/brain/neck and chest revealed no acute findings suggestive of acute stroke or subacute etiology. However, CTA of the neck did reveal high- grade narrowing of the left vertebral artery. Echocardiogram revealed no evidence of a clot. Repeat head CT without acute findings, stable. You were given TNKase at the start of your admission for suspected stroke. Medication was provided and tolerated. Discussion with neurology provided the following recommendations: Start aspirin 81 mg every day (do not take first dose until 08/18), follow-up outpatient with neurology to discuss starting acute migraine treatment such as Nurtec or Ubrelvy. Continue on medications for migraine prevention to include topiramate. Please follow-up with outpatient neurology as scheduled as well as outpatient follow-up for cardiac monitoring. Echocardiogram of the heart did reveal enlargement of the left lower chamber (concentric left ventricular hypertrophy) as well as dilation of the right ventricle. Recommend outpatient follow-up with cardiology. We also made referral for heart rhythm monitor to check for Afib or other arrhythmias. the clinic should be calling you to schedule If you notice increased pain, worsening of symptoms, or any component of the BE FAST acronym, please call your PCP for advice or return to the ED immediately. Balance (trouble standing or walking), Eyes (trouble with vision), Face (facial droop), Arm (weakness/numbness/drifting of arm), Speech (trouble speaking), Time (act fast- go to ED). Total Time Total Time Spent Total Time Spent (In Minutes): 40 minutes Coding [place] [address] INP/OBS DISCH >30 MIN Patient Type Established Medical Decision Making Moderate Complexity Diagnoses Stroke-like symptoms R29.90 Pulmonary HTN I27.20 GERD (gastroesophageal reflux disease) K21.9 Heart attack I21.9 Anxiety F41.9 Migraine G43.909 Time Spent (min) 40
--- NOTE | 2024-08-17 17:06 | CT Scan Report ---
CT OF THE HEAD WITHOUT CONTRAST CLINICAL HISTORY: 24 hour post TNK- eval for bleed COMPARISON STUDY: Head CT, CTA of the head and MRI of the brain August 16, 2024. CT DOSE: 663.26 mGy.cm TECHNIQUE: Helical axial images of the head were obtained without IV contrast. Automated exposure con trol was utilized for the study. A dose lowering technique was utilized adhering to the principles o f ALARA. FINDINGS: No acute intracranial hemorrhage, midline shift or mass effect is present. White matter hyp odensities are unchanged and favor small vessel disease. The ventricular system is unremarkable. The basal cisterns are patent. No extra-axial collections are present. There are no findings to suggest a cute dural sinus thrombosis or acute territorial infarct. No significant calvarial abnormalities are present. Visualized portions of the sinuses and mastoid air cells are clear. IMPRESSION: No acute intracranial findings. ACT 112: Negative or not required by law. Electronically signed by: Keith Cooney M.D. 08/17/2024 5:05 PM
[2024-08-17 17:19] VITALS: BP 127/89; PULSE 88; RESP 19; O2SAT 94
[2024-08-17] MEDS ORDERED: STROKE PATIENT DISCHARGE STA (17:39)
[2024-08-18] MEDS ORDERED: ROSUVASTATIN CALCIUM 20 MG TAB PO SCH (09:00)
== END 2024-08-17 18:01 | disposition home or self-care (01) | DRG 103 ==
LOC: ED 15:07 → SUATTDRO 17:32 → 1E 17:32